=== PATIENT | female | born 1980 | race Hispanic/Latino ===

== ENCOUNTER 2024-05-10 14:43 | Outpatient (CLI) | payer BC, SELFPAY ==
--- NOTE | ~2024-05-10 | MM_ITS ---
EXAMINATION: MM screening arcadio BI w giselle HISTORY: Screening TECHNIQUE: Craniocaudal and mediolateral oblique 3-D tomosynthesis images were obtained and synthetic 2-D images were generated. CAD analysis was submitted and interpreted. COMPARISON: No prior mammogram is available for comparison at this institution. BREAST PARENCHYMAL COMPOSITION: Dense: The breasts are heterogeneously dense, which may obscure small masses FINDINGS: There is no evidence of suspicious mass, calcification, or architectural distortion to sugg est malignancy in either breast. There has been no suspicious interval change. IMPRESSION: 1. No mammographic evidence of malignancy. 2. Recommend routine screening mammography in one year. BI-RADS Category 1: Negative Reviewed, dictated and finalized at location B. FIXER
--- OUTSIDE RECORDS SUMMARY | 2024-05-13 22:41 | XMS_ITS | Encounter Summary ---
Author Organization [facility] Address Critical access hospital[facility] [place], [place] [address] [place] [address] Care Team Providers Care Segmental Wall Installer Name Role Phone Shabbir Natarajan MD Primary Care Provider [phone] Encounter Details Date Type Department Care Team (Late st Contact Info) Description 01/07/2024 Accelereacht Message Enc [address] [place] [address] Shabbir Natarajan MD [address] [place] [address] Refil Social History Tobacco Use Types Packs/Day Years Used Date Smoking Tobacco: Never Smokeless Tobacco: Never Comments:Counseled by Dr Stephany liao. Alcohol Use Standard Drinks/Week Comments Never 0 (1 standard drink = 0.6 oz pur e alcohol) PHQ-2 Answer Date Recorded Patient Health Questionnaire-2 Score 1 10/17/2023 Comments No Sex and Gender Information Value Date Recorded Sex Assigned at Not on file Legal Sex Female 11:20 AM CDT Gender Identity Not on file Sexual Orientation Not on file documented as of this encounter Plan of Treatment Upcoming Encounters Date Type Department Care Team (Late st Contact Info) Description 10/22/2024 7:20 AM CDT [facility] [address] [place], [place] [id number] Shabbir Natarajan MD [address] [place] [address] 157 [place] [address] documented as of this encounter Visit Diagnoses Not on filedocumented in this encounter Care Teams Segmental Wall Installer Relationship Specialty Start Date End Date Shabbir Natarajan MD [address] [facility] 157 [place] [address] PCP - General INTERNAL MEDICINE 09/05/22 documented as of this encounter
--- OUTSIDE RECORDS SUMMARY | 2024-05-13 22:41 | XMS_ITS | Encounter Summary ---
Author Organization [facility] Address [facility]6 [facility] [place] [address] [place] [address] Care Team Providers Care Cupola Charger Name Role Phone Shabbir Natarajan MD Primary Care Provider [phone] Encounter Details Date Type Department Care Team (Late Contact Info) Description 06/23/2023 Get Int Message [facility] [address] [place] [address] Shabbir Natarajan MD [address] [place] [address] Question Social History Tobacco Use Types Packs/Day Years Used Date Smoking Tobacco: Never Smokeless Tobacco: Never Comments:Counseled by Dr Stephany liao. Alcohol Use Standard Drinks/Week Comments Never 0 (1 standard drink = 0.6 oz pur e alcohol) PHQ-2 Answer Date Recorded Patient Health Questionnaire-2 Score 2 10/11/2022 Comments No Sex and Gender Information Value Date Recorded Sex Assigned at Not on file Legal Sex Female 11:20 AM CDT Gender Identity Not on file Sexual Orientation Not on file documented as of this encounter Plan of Treatment Upcoming Encounters Date Type Department Care Team (Late Contact Info) Description 10/22/2024 7:20 AM CDT Office Visit [facility] - [address] [place], [place] [address] Shabbir Natarajan MD [address] [place] [address] [place] [address] documented as of this encounter Visit Diagnoses Not on filedocumented in this encounter Care Teams Cupola Charger Relationship Specialty Start Date End Date Shabbir Natarajan MD 118[address] [facility] 157 [place] [address] PCP - General INTERNAL MEDICINE 09/05/22 documented as of this encounter
--- OUTSIDE RECORDS SUMMARY | 2024-05-13 22:41 | XMS_ITS | Encounter Summary ---
Author Organization [facility] Address Critical access hospital6 [facility] [place] [address] [place] [address] Care Team Providers Care External Grinder Tool Name Role Phone Shabbir Natarajan MD Primary Care Provider [phone] Encounter Details Date Type Department Care Team (Late Contact Info) Description 03/01/2024 Hard Candy Casest Message Enc [facility] [place] - [address] [place] [address] Shabbir Natarajan MD [address] [place] [address] Doubt Social History Tobacco Use Types Packs/Day Years [...] Description 10/22/2024 7:20 AM CDT [facility] [address] [place], [place] [id number] Shabbir Natarajan MD [address] [place] [address] [place] [address] documented as of this encounter Visit Diagnoses Not on filedocumented in this encounter Care Teams External Grinder Tool Relationship Specialty Start Date End Date Shabbir Natarajan MD 1188 [facility] 157 [place] [address] PCP - General INTERNAL MEDICINE 09/05/22 documented as of this encounter
--- OUTSIDE RECORDS SUMMARY | 2024-05-13 22:41 | XMS_ITS | Encounter Summary ---
Author Organization [facility] - [facility] Address [facility]6 [facility]. [place], [place] [address] [place] [address] Care Team Providers Care Sales Effectiveness Manager Name Role Phone Shabbir Natarajan MD Primary Care Provider [phone] Encounter Details Date Type Department Care Team (Latest Contact Info) Description 11/25/2022 Travel Social History Tobacco Use Types Packs/Day Years [...] Description 10/22/2024 7:20 AM CDT Office Visit [facility] Mult[facility]ty Care - [place] [address] [address] [place] [address] Shabbir Natarajan MD [address] [place] [phone] documented as of this encounter Visit Diagnoses Not on filedocumented in this encounter Care Teams Sales Effectiveness Manager Relationship Specialty Start Date End Date Shabbir Natarajan MD [address] [place] [address] PCP - General INTERNAL MEDICINE 09/05/22 documented as of this encounter
--- OUTSIDE RECORDS SUMMARY | 2024-05-13 22:41 | XMS_ITS | Encounter Summary ---
Author Organization [facility] Address [facility]6 [facility] [place] [address] [place] [address] Care Team Providers Care Clinical Investigator Name Role Phone Shabbir Natarajan MD Primary Care Provider [phone] Encounter Details Date Type Department Care Team (Late Contact Info) Description 10/17/2023 ABL Farmshart Message Enc [facility] - [address] [place] [address] Shabbir Natarajan MD [address] [place] [address] Pictures Social History Tobacco Use Types Packs/Day Years [...] Description 10/22/2024 7:20 AM CDT [facility] [address] [place], [place] [address] Shabbir Natarajan MD [address] [place] [address] [place] [address] documented as of this encounter Visit Diagnoses Not on filedocumented in this encounter Care Teams Clinical Investigator Relationship Specialty Start Date End Date Shabbir Natarajan MD 1188 [facility] 157 [place] [address] PCP - General INTERNAL MEDICINE 09/05/22 documented as of this encounter
--- OUTSIDE RECORDS SUMMARY | 2024-05-13 22:41 | XMS_ITS | Encounter Summary ---
Author Organization [facility] Address [facility]6 [facility] [place] [address] [place] [address] Care Team Providers Care Seaport Planning Manager Name Role Phone Shabbir Natarajan MD Primary Care Provider [phone] Encounter Details Date Type Department Care Team (Late st Contact Info) Description 10/13/2023 Fuzzhart Message Enc [address] [place] [address] Shabbir Natarajan MD [address] [place] [address] 157 [place] [address] Spider Bite? Social History Tobacco Use Types Packs/Day Years [...] Description 10/22/2024 7:20 AM CDT [facility] [address] [place] [address] Shabbir Natarajan MD 1188 [facility] 157 [place] [address] documented as of this encounter Visit Diagnoses Not on filedocumented in this encounter Care Teams Seaport Planning Manager Relationship Specialty Start Date End Date Shabbir Natarajan MD 1188 [facility] 157 [place] [address] PCP - General INTERNAL MEDICINE 09/05/22 documented as of this encounter
--- OUTSIDE RECORDS SUMMARY | 2024-05-13 22:41 | XMS_ITS | Encounter Summary ---
Author Organization [facility] Address [facility]. [place] [address] [place] [address] Care Team Providers Care Service Unit Operator Oil Well Name Role Phone Shabbir Natarajan MD Primary Care Provider [phone] Encounter Details Date Type Department Care Team (Latest Contact Info) Description 11/23/2022 Travel Social History Tobacco Use Types Packs/Day [...] Description 10/22/2024 7:20 AM CDT Office Visit [facility] Multispecialty Care - [place] [address] [address] [place] [address] Shabbir Natarajan MD [address] [place] [phone] documented as of this encounter Visit Diagnoses Not on filedocumented in this encounter Care Teams Service Unit Operator Oil Well Relationship Specialty Start Date End Date Shabbir Natarajan MD [address] [place] [address] PCP - General INTERNAL MEDICINE 09/05/22 documented as of this encounter
--- OUTSIDE RECORDS SUMMARY | 2024-05-13 22:41 | XMS_ITS | Encounter Summary ---
Author Organization [facility] Address [address] [place] [address]. [place], [place] [address] [place] [address] Care Team Providers Care Cloth Pattern Maker Name Role Phone Shabbir Natarajan MD Primary Care Provider [phone] Reason for Visit * Reason Comments Vaginal Problem Sore on the vagina Encounter Details Date Type Department Care Team (Late st Contact Info) Description 04/11/2024 9:00 AM SOUR BLEACHING PLEATER Office Visit [facility] Multispecialty Care - [place] [address] [place] [address] Chico Parada, MAINTENANCE TRAINER [address] [place], [place] [id number] Vaginal Problem (Sore on the vagina) Social History Tobacco Use Types Packs/Day Years Used Date Smoking Tobacco: Never Smokeless Tobacco: Never Tobacco Cessation:Counseling Given: Not Answered Comments:Counseled by Dr Natarajan. Alcohol Use Standard Drinks/Week Comments Never 0 (1 standard drink = 0.6 oz pur e alcohol) PHQ-2 Answer Date Recorded Patient Health Questionnaire-2 Score 1 10/17/2023 Comments No Sex and Gender Information Value Date Recorded Sex Assigned at Not on file Legal Sex Female 11:20 AM CDT Gender Identity Not on file Sexual Orientation Not on file documented as of this encounter Last Filed Vital Signs Vital Sign Reading Time Taken Comments Blood Pressure 104/71 04/11/2024 9:01 AM SOUR BLEACHING PLEATER Pulse 63 04/11/2024 9:01 AM SOUR BLEACHING PLEATER Temperature 36.4 ??C (97.6 ??F) 04/11/2024 9:01 AM CS T Respiratory Rate 18 04/11/2024 9:01 AM SOUR BLEACHING PLEATER Oxygen Saturation 100% 04/11/2024 9:01 AM SOUR BLEACHING PLEATER Inhaled Oxygen Concentration - - Weight 67.8 kg (149 lb 6.4 oz) 04/11/2024 9:01 A M SOUR BLEACHING PLEATER Height 165.1 cm (5' 5 ) 04/11/2024 9:01 AM SOUR BLEACHING PLEATER Body Mass Index 24.86 04/11/2024 9:01 AM SOUR BLEACHING PLEATER documented in this encounter Patient Instructions * Patient Instructions* Chico Parada NP - 04/11/2024 9:00 AM SOUR BLEACHING PLEATER Warm water soaks, warm compress for discomfort May take Ibuprofen as needed if pain occurs Monitor for a few days Start antibiotic if it does not resolve BLEACHING PLEATER documented in this encounter Progress Notes * Chico Parada NP - 04/11/2024 9:00 AM CSTSummary: labial cyst Images from the original note were not included. Internal Medicine Outpatient Progress Note CC: Vaginal Problem (Sore on the vagina) HPI: Nicci Blancas is a 43-year-old female who presents to discuss vaginal lesion. States she recently traveled to [place] and was swimming, in the sand has also been sexually active with her and noticed a sore. Slightly painful to the touch wanted to get it examined before she starts her menstrual period in one week. No drainage, minimal discomfort. Patient has history of below: Patient Active Problem List Diagnosis Rash and nonspecific skin eruption Review of Systems Constitutional: Negative. HENT: Negative. Eyes: Negative. Respiratory: Negative. Cardiovascular: Negative. Genitourinary: Vaginal sore Neurological: Negative. Psychiatric/Behavioral: Negative. Past Medical History: Past Medical History: Diagnosis Date 2009 Family History: Family History Problem Relation Name Age of Onset Hypertension Mother Ilde No Known Problems Father Cancer Paternal Grandmother Laucy Hypertension Maternal Grandfather Malvin Cancer Maternal Uncle Malvin Hypertension Sister Silvia Social History: Social History Tobacco Use Smoking status: Never Smokeless tobacco: Never Tobacco comments: Counseled by Dr Natarajan. Vaping Use Vaping status: Never Used Substance Use Topics Alcohol use: Never Drug use: Never Medications: Outpatient Medications Marked as Taking for the 04/11/24 encounter (Office Visit) with Chioc Parada NP Medication Sig Dispense Refill azelastine (ASTELIN) 0.1 % nasal spray 1 spray by Nasal route 2 (two) times daily. Use in each nostril as directed 30 mL 5 biotin 300 MCG Tab Take 1 tablet (300 mcg total) by mouth daily. 90 tablet 1 doxycycline hyclate (VIBRAMYCIN) 100 MG capsule Take 1 capsule (100 mg total) by mouth 2 (two) times daily for 10 days. Take with food 20 capsule 0 fluticasone propionate (FLONASE) 50 MCG/ACT nasal spray 2 sprays by Nasal route daily. 16 g 5 melatonin 1 MG tablet Take 1 tablet (1 mg total) by mouth nightly as needed (10 mg). ( VITAMINS) 28-0.8 MG tablet Take 1 tablet by mouth daily. 90 tablet 0 topiramate (TOPAMAX) 50 MG Tab Take 1 tablet (50 mg total) by mouth daily. 90 tablet 1 triamcinolone (KENALOG) 0.1 % cream Apply topically 2 (two) times daily. 45 g 0 Allergies: Review of patient's allergies indicates: Patient has no known allergies. ? Objective: Filed Vitals: 04/11/24 0901 BP: 104/71 Pulse: 63 Resp: 18 Temp: 97.6 ??F (36.4 ??C) TempSrc: Core SpO2: 100% Weight: 67.8 kg (149 lb 6.4 oz) Height: 1.651 m (5' 5 ) Body mass index is 24.86 kg/m??. Physical Exam Exam conducted with a lending advisor present. Constitutional: General: She is not in acute distress. Appearance: Normal appearance. She is not ill-appearing. Eyes: Conjunctiva/sclera: Conjunctivae normal. Pulmonary: Effort: Pulmonary effort is normal. Genitourinary: Pubic Area: No rash. Labia: Right: Lesion present. Comments: Small pink cyst to right labia minora, no drainage, no surrounding redness Neurological: Mental Status: She is alert. Psychiatric: Mood and Affect: Mood normal. Behavior: Behavior normal. Judgment: Judgment normal. Assessment and Plan: 1. Labial cyst No signs of infection, no drainage or surrounding redness Recommend warm bath, warm compress for swelling and monitoring for a few days If the cyst does not improve may start antibiotics - doxycycline hyclate (VIBRAMYCIN) 100 MG capsule; Take 1 capsule (100 mg total) by mouth 2 (two) times daily for 10 days. Take with food Dispense: 20 capsule; Refill: 0 Tobacco: Counseling given: Not Answered Tobacco comments: Counseled by Dr Natarajan. I personally spent a total of 15 minutes on the day of the encounter. This includes nevi-wf-uwes and fmx-krbn-qv-face time I provided on the day of the encounter & excludes time spent performing separately reportable services. Side effects and less common but more severe adverse effects of recommended medical therapies were explained to the patient. Patient reminded to use MyChart or telephone follow up prn if symptoms change, worsen, or persist, or if side effect of treatment is experienced. RTC as scheduled CHICO PARADA NP 04/11/2024 [facility]. BLEACHING PLEATER documented in this encounter Plan of Treatment Upcoming Encounters Date Type Department Care Team (Late st Contact Info) Description 10/22/2024 7:20 AM CDT Office Visit [facility]pecialty Care - [place] [address] [address] [place] [address] Shabbir Natarajan MD [address] [place] [address] documented as of this encounter Visit Diagnoses Diagnosis Labial cyst- Primary Other specified noninflammatory disorder of vulva and perineum documented in this encounter Care Teams Cloth Pattern Maker Relationship Specialty Start Date End Date Shabbir Natarajan MD [address] [place] [address] PCP - General INTERNAL MEDICINE 09/05/22 documented as of this encounter
--- OUTSIDE RECORDS SUMMARY | 2024-05-13 22:41 | XMS_ITS | Encounter Summary ---
Author Organization [facility] Address [facility]6 [facility] [place], [place] [address] [place] [address] Care Team Providers Care Night Club Manager Name Role Phone Shabbir Natarajan MD Primary Care Provider [phone] Encounter Details Date Type Department Care Team (Latest Contact Info) Description 02/21/2024 Travel Social History Tobacco Use Types Packs/Day [...] Description 10/22/2024 7:20 AM CDT Office Visit [facility] Multispecialty Care - [place] [address] [address] [place] [address] Shabbir Natarajan MD [address] [place] [phone] documented as of this encounter Visit Diagnoses Not on filedocumented in this encounter Care Teams Night Club Manager Relationship Specialty Start Date End Date Shabbir Natarajan MD [address] [place] [address] PCP - General INTERNAL MEDICINE 09/05/22 documented as of this encounter
--- OUTSIDE RECORDS SUMMARY | 2024-05-13 22:41 | XMS_ITS | Encounter Summary ---
Author Organization [facility] Address [facility]6 [facility]. [place], [place] [address] [place] [address] Care Team Providers Care Knuckler Name Role Phone Shabbir Natarajan MD Primary Care Provider [phone] Encounter Details Date Type Department Care Team (Latest Contact Info) Description 10/17/2023 Travel Social History Tobacco Use Types Packs/Day [...] Description 10/22/2024 7:20 AM CDT Office Visit [facility] Multispecialty Care - [place] [address] [address] [place] [address] Shabbir Natarajan MD [address] [place] [address] [phone] documented as of this encounter Visit Diagnoses Not on filedocumented in this encounter Care Teams Knuckler Relationship Specialty Start Date End Date Shabbir Natarajan MD [address] [place] [address] PCP - General INTERNAL MEDICINE 09/05/22 documented as of this encounter
--- OUTSIDE RECORDS SUMMARY | 2024-05-13 22:41 | XMS_ITS | Encounter Summary ---
Author Organization [facility] Address [facility]6 [place] [address] [place] [address] Care Team Providers Care Data Management Specialist Name Role Phone Shabbir Natarajan MD Primary Care Provider [phone] Encounter Details Date Type Department Care Team (Latest Contact Info) Description 02/21/2024 [employer] Message [facility] [address] [place], [place] [address] Shabbir Natarajan MD [address] [place] [address] Dentist appointment Social History Tobacco Use Types Packs/Day Years [...] Description 10/22/2024 7:20 AM CDT [facility] [address] [place] [address] Shabbir Natarajan MD [address] [place] [address] 157 [place] [address] documented as of this encounter Visit Diagnoses Not on filedocumented in this encounter Care Teams Data Management Specialist Relationship Specialty Start Date End Date Shabbir Natarajan MD [address] [facility] 157 [place] [address] PCP - General INTERNAL MEDICINE 09/05/22 documented as of this encounter
--- OUTSIDE RECORDS SUMMARY | 2024-05-13 22:41 | XMS_ITS | Encounter Summary ---
Author Organization [facility] Address [facility]. [place], [place] [id number] [place] [id number] Care Team Providers Care Timekeeper Supervisor Name Role Phone Shabbir Natarajan MD Primary Care Provider [phone] Reason for Referral * Imaging (Routine) - Authorized Specialty Diagnoses / Procedures Referred By Chilo jimenez Referred To Contact RADIOLOGY Diagnoses Encounter for screening mammogram for malignant neoplasm of breast Procedures MG SCREENING W ROYER KIMBERLY DIGI Shabbir Natarajan MD [address] [address] Phone: tel: fax: Referral ID Status Reason Start Date Expiration Date V isits Requested Visits Authorized [id number] Authorized 10/17/2023 12/16/2024 1 1 Reason for Visit * Reason Comments Physical Weight Problem Hair/Scalp Problem Encounter Details Date Type Department Care Team (Latest Contact Info) Description 10/17/2023 8:00 AM CDT Office Visit [facility] - [address] [address] [address] [place], [place] [id number] Shabbir Natarajan MD [address] [id number] Physical; Weight Problem; Hair/Scalp Problem Social History Tobacco Use Types Packs/Day Years Used Date Smoking Tobacco: Never Smokeless Tobacco: Never Tobacco Cessation:Counseling Given: Yes Comments:Counseled by Dr Natarajan. Alcohol Use Standard [...] Sign Reading Time Taken Comments Blood Pressure 120/76 10/17/2023 7:48 AM CDT Pulse 65 10/17/2023 7:48 AM CDT Temperature 36.2 ??C (97.2 ??F) 10/17/2023 7:48 AM CD T Respiratory Rate 18 10/17/2023 7:48 AM CDT Oxygen Saturation 100% 10/17/2023 7:48 AM CDT Inhaled Oxygen Concentration - - Weight 81.3 kg (179 lb 3.2 oz) 10/17/2023 7:48 A M CDT Height 165.1 cm (5' 5 ) 10/17/2023 7:48 AM CDT Body Mass Index 29.82 10/17/2023 7:48 AM CDT documented in this encounter Patient Instructions * Patient Instructions* Shabbir Natarajan MD - 10/17/2023 8:00 AM CDT Follow up in one month for your weight medication. * Attachments The following attachments cannot be sent through Care Everywhere. * Yearly Physical for Adults (Pakistani) documented in this encounter Progress Notes * Shabbir Natarajan MD - 10/17/2023 8:00 AM CDTSummary: Annual physical notes Images from the original note were not included. ANNUAL PHYSICAL NOTES Encounter Date: 10/17/2023 Chief Complaint: 43-year-old female presents for Physical, Weight Problem, and Hair/Scalp Problem The patient is being seen for a health maintenance evaluation and for following up for chronic medical issues. She is mainly concerned about her weight. She is exercising regularly and is concerned her weight has remained stagnant. She did have blood work done recently but is unsure if her thyroid numbers were checked. She is interested in losing weight at this time. She is exercising very regularly and hasgood exercise tolerance. She is also watching portions of her diet. She is also concerned about recent hair loss. She is currently taking biotin 1000 units daily and She is taking melatonin 10 mg nightly and has been for years and helping with sleep. She is also taking another supplement valerian to help with sleep and wanted me to be aware of it. She tells me she recently had blood work done through her 's job and will send me the results. She is unsure of the exact labs that were performed reports most of it was normal. General Health: good Dental Health: Sees dentist regularly Vision Health: No vision correction Hearing Health: No hearing problems Immunizations Needed: COVID Weight: Overweight Body mass index is 29.82 kg/m??. Physical Activity: Excersises regularly and Acitve lifestyle Cervical Cancer Screening: up to date Breast Cancer Screening: Due Colorectal Cancer Screening: None Metabolic Screening: Patient needs to be screened today. HCV Screening: done PHQ-9 Screening Score: PHQ-9: 10/11/2022 2:16 PM 10/17/2023 8:33 AM PHQ2/PHQ 9 DEPRESSION SCREEN QUESTIONAIRE Little interest or pleasure in doing things Several days Several days Feeling down, depressed, or hopeless Several days Not at all Patient Health Questionnaire-2 Score 2 1 How difficult have these problems made it for you to do your work, take care of things at home, or get along with other people? Not difficult at all Not difficult at all JASEN-7 (Generalized Anxiety Disorder) Screening 10/11/2022 1:20 PM 10/17/2023 8:33 AM JASEN-7 Feeling nervous, anxious, or on edge 1 Not being able to stop or control worrying 0 Worrying too much about different things 1 Trouble relaxing 1 Being so restless that it is hard to sit still 0 Becoming easily annoyed or irritable 0 Feeling afraid as if something awful might happen 1 JASEN-7 Total Score 4 How difficult have these problems made it for you to do your work, take care of things at home, or get along with other people? Not difficult at all Feeling nervous, anxious and on edge 1 - several days Not being able to stop or control worrying 0 - not at all Worrying too much about different things 1 - several days Trouble Relaxing 0 - not at all Being so restless that it's hard to sit still 0 - not at all Becoming easily annoyed or irritable 0 - not at all Feeling afraid as if something awful might happen 0 - not at all Total Score 2 If you checked off any problems, how difficult have those problems made it for you to do your work take care of things at home or get along with other people? not difficult at all Smoking Status: History Smoking Status Never Smokeless Tobacco Never Patient does not meet criteria for Low Dose CT screening Sleep Apnea Risk Factors: None Review of Systems Constitutional: Negative for activity change, appetite change, chills, fatigue, fever and unexpected weight change. HENT: Negative for congestion, hearing loss, mouth sores, postnasal drip, rhinorrhea, sinus pressure, sinus pain, sore throat, tinnitus and voice change. Eyes: Negative for pain, discharge, redness, itching and visual disturbance. Respiratory: Negative for cough, chest tightness, shortness of breath and wheezing. Cardiovascular: Negative for chest pain, palpitations and leg swelling. Gastrointestinal: Negative for abdominal distention, abdominal pain, blood in stool, constipation, diarrhea, nausea and vomiting. Genitourinary: Negative for decreased urine volume, difficulty urinating, dysuria, flank pain, frequency, hematuria and urgency. Musculoskeletal: Negative for arthralgias, back pain, gait problem, joint swelling and myalgias. Skin: Negative for pallor, rash and wound. Neurological: Negative for dizziness, tremors, syncope, weakness, light- headedness and headaches. Hematological: Negative for adenopathy. Does not bruise/bleed easily. Psychiatric/Behavioral: Negative for agitation, behavioral problems, confusion, decreased concentration, dysphoric mood, hallucinations, self-injury, sleep disturbance and suicidal ideas. The patientis not nervous/anxious and is not hyperactive. Patient Active Problem List Diagnosis Rash and nonspecific skin eruption Past Medical History: Diagnosis Date Anxiety 2009 Past Surgical History: Procedure Laterality Date SECTION Family History Problem Relation Name Age of Onset Hypertension Mother Ilde No Known Problems Father Cancer Paternal Grandmother Laucy Hypertension Maternal Grandfather Malvin Cancer Maternal Uncle Malvin Hypertension Sister Silvia Social History Socioeconomic History Marital status: Spouse name: Not on file Number of children: Not on file Years of education: Not on file Highest education level: Not on file Occupational History Not on file Tobacco Use Smoking status: Never Smokeless tobacco: Never Tobacco comments: Counseled by Dr Natarajan. Vaping Use Vaping status: Never Used Substance and Sexual Activity Alcohol use: Never Drug use: Never Sexual activity: Yes Partners: Male control/protection: Condom Other Topics Concern Not on file Social History Narrative Not on file Social Determinants of Health Financial Resource Strain: Not on file Food Insecurity: Not on file Transportation Needs: Not on file Physical Activity: Not on file Stress: Not on file Social Connections: Not on file Intimate Partner Violence: Not on file Housing Stability: Not on file Immunization History Administered Date(s) Administered [employer] ([employer]) COVID-19 AD26 VACCINE 0.5 ML IM SUSP 09/26/2020 PFIZER COVID-19 BIVALENT (12+) mRNA, LNP-S, PF, 30 MCG/0.3 ML DOSE 04/10/2021, 02/26/2022 Tdap (Generic) 09/08/2021 Current Outpatient Medications Medication Sig Dispense Refill azelastine (ASTELIN) 0.1 % nasal spray 1 spray by Nasal route 2 (two) times daily. Use in each nostril as directed 30 mL 5 biotin 300 MCG Tab Take 1 tablet (300 mcg total) by mouth daily. fluticasone propionate (FLONASE) 50 MCG/ACT nasal spray 2 sprays by Nasal route daily. 16 g 5 melatonin 1 MG tablet Take 1 tablet (1 mg total) by mouth nightly as needed. phentermine (ADIPEX-P) 37.5 MG tablet Take 1 tablet (37.5 mg total) by mouth every morning before breakfast. 30 tablet 0 ( VITAMINS) 28-0.8 MG tablet Take 1 tablet by mouth daily. 90 tablet 3 No current facility-administered medications for this visit. Current Outpatient Medications on File Prior to Visit Medication Sig biotin 300 MCG Tab Take 1 tablet (300 mcg total) by mouth daily. melatonin 1 MG tablet Take 1 tablet (1 mg total) by mouth nightly as needed. No current facility-administered medications on file prior to visit. Review of patient's allergies indicates: No Known Allergies Objective: Filed Vitals: 10/17/23 0748 BP: 120/76 Pulse: 65 Resp: 18 Temp: 97.2 ??F (36.2 ??C) TempSrc: Temporal SpO2: 100% Weight: 81.3 kg (179 lb 3.2 oz) Height: 1.651 m (5' 5 ) Physical Exam Vitals and nursing note reviewed. Constitutional: General: She is not in acute distress. Appearance: She is not ill-appearing, toxic-appearing or diaphoretic. HENT: Head: Normocephalic and atraumatic. Right Ear: Tympanic membrane, ear canal and external ear normal. There is no impacted cerumen. Left Ear: Tympanic membrane, ear canal and external ear normal. There is no impacted cerumen. Nose: Nose normal. No congestion. Mouth/Throat: Mouth: Mucous membranes are moist. Pharynx: Oropharynx is clear. No oropharyngeal exudate. Eyes: General: No scleral icterus. Right eye: No discharge. Left eye: No discharge. Extraocular Movements: Extraocular movements intact. Conjunctiva/sclera: Conjunctivae normal. Pupils: Pupils are equal, round, and reactive to light. Neck: Thyroid: No thyromegaly. Vascular: No carotid bruit or JVD. Trachea: No tracheal deviation. Cardiovascular: Rate and Rhythm: Normal rate and regular rhythm. Pulses: Normal pulses. Heart sounds: Normal heart sounds. No murmur heard. No friction rub. No gallop. Pulmonary: Effort: Pulmonary effort is normal. No respiratory distress. Breath sounds: Normal breath sounds. No stridor. No wheezing or rales. Chest: Chest wall: No tenderness. Abdominal: General: Bowel sounds are normal. There is no distension. Palpations: Abdomen is soft. There is no mass. Tenderness: There is no abdominal tenderness. There is no right CVA tenderness, left CVA tenderness, guarding or rebound. Hernia: No hernia is present. Musculoskeletal: General: No swelling, tenderness, deformity or signs of injury. Normal range of motion. Cervical back: Normal range of motion and neck supple. No rigidity or tenderness. Right lower leg: No edema. Left lower leg: No edema. Lymphadenopathy: Cervical: No cervical adenopathy. Skin: General: Skin is warm. Coloration: Skin is not jaundiced or pale. Findings: No bruising, erythema, lesion or rash. Neurological: Mental Status: She is alert and oriented to person, place, and time. Cranial Nerves: No cranial nerve deficit. Sensory: No sensory deficit. Motor: No weakness or abnormal muscle tone. Coordination: Coordination normal. Gait: Gait is intact. Gait normal. Deep Tendon Reflexes: Reflexes are normal and symmetric. Reflexes normal. Psychiatric: Mood and Affect: Mood and affect normal. Thought Content: Thought content normal. Cognition and Memory: Memory normal. Judgment: Judgment normal. Assessment & Plan: Nicci was seen today for physical, weight problem and hair/scalp problem. Diagnoses and all orders for this visit: Annual physical exam -Discussed breast cancer screening and screen per patient preference and guidelines. Self-breast exams are a level D recommendation by the USPSTF. Follow up with primary care provider or gynecologistif any abnormalities are noted. Mammograms should continue annually. Reviewed with the patient BMI,blood pressure, diet, exercise, and encouraged healthy lifestyle choices. I recommended weight-bearing exercise to decrease risks of osteoporosis. Screened for substance use, risk factors for STIs, diet and exercise habits, and symptoms of depression. Colon screening starting at 45. Recommended preventive immunizations according to age. -She will send me recent labs done outside. If labs not completely done, will consider checking CBC, CMP, TSH, A1c and lipid panel General medical exam -Patient past medical, surgical, family history and social history updated. Allergies, immunizations and medications updated. Also did discuss healthy lifestyle including exercising, dietary changes and safe sexual practices as well as safe habits common to patient age group including wearing seat belt when transporting in a vehicle and limiting alcohol and avoiding smoking/second hand smoking. Patient will set up MyChart. Patient will fax over any remaining outside records that would be relevant to care provided. -I did discuss with patient the appropriate [place] Preventive Services Task Force guidelinesfor screening testing as patient had multiple questions regarding timeline for all screening testings and this was discussed in detail with patient and all questions answered to patient's satisfaction. Encounter for screening mammogram for malignant neoplasm of breast - MG SCREENING W ROYER URIBE; Future - MG SCREENING W ROYER URIBE Overweight (BMI 25.0-29.9) - At today's visit, one of her major concerns is that of difficulty with weight loss. She reports noticing an stagnation with weight loss since moving to the [facility] from [place]. She is originally from [place]. Currently exercising very regularly and maintaining a healthy lifestyle but still having difficulty with weight loss. Discussed options of treatment with patient. She will start phentermine and follow-up every 4 weeks for the next few months. - Lifestyle modification including dietary changes to include less saturated fats, lean meat, more vegetables and exercise at least 30 min every day. - phentermine (ADIPEX-P) 37.5 MG tablet; Take 1 tablet (37.5 mg total) by mouth every morning before breakfast. -This is her first refill. Loss of hair - She is currently on biotin but cannot recall the exact dose. She will confirm the exact dose whenshe gets home. Encourage patient to take about 5000 units versus 10,000 units as appropriate. Closeblood during subsequent visits. -Add ( VITAMINS) 28-0.8 MG tablet; Take 1 tablet by mouth daily. Environmental and seasonal allergies - Stable symptoms. Needing refills on medications. - azelastine (ASTELIN) 0.1 % nasal spray; 1 spray by Nasal route 2 (two) times daily. Use in each nostril as directed - fluticasone propionate (FLONASE) 50 MCG/ACT nasal spray; 2 sprays by Nasal route daily. I personally spent a total of 50 minutes on the day of the encounter. This includes [id number] and [id number] time I provided on the day of the encounter & excludes time spent performing separately reportable services. SAVANA: This dictation was at least in part performed using [employer] and there may be some inherent flaws in this extension agent due to the nature of this program. MD Shabbir SANCHEZ MD Internal Medicine [facility] Medical [facility], [facility]. documented in this encounter Plan of Treatment Upcoming Encounters Date Type Department Care Team (Late st Contact Info) Description 10/22/2024 7:20 AM CDT Office Visit [facility] Medical [facility] - [address] [place] [address] [address] [place] [address] Shabbir Natarajan MD [address] [place] [address] [address] [place] [address] Scheduled Orders Name Type Priority Associated Diagnoses Orde r Schedule MG SCREENING W ROYER KIMBERLY DIGI MAMMO Routine Encounter for screening mammogram for malignant neoplasm of breast Expected: 10/17/2023, Expires: 12/13/2024 documented as of this encounter Visit Diagnoses Diagnosis Annual physical exam- Primary Routine general medical examination at a health care facility General medical exam Unspecified general medical examination Encounter for screening mammogram for malignant neoplasm of breast Other screening mammogram Overweight (BMI 25.0-29.9) Overweight Loss of hair Alopecia, unspecified Environmental and seasonal allergies documented in this encounter Care Teams Timekeeper Supervisor Relationship Specialty Start Date End Date Shabbir Natarajan MD [address] [address] PCP - General INTERNAL MEDICINE 09/05/22 documented as of this encounter
--- OUTSIDE RECORDS SUMMARY | 2024-05-13 22:41 | XMS_ITS | Encounter Summary ---
Author Organization [facility] - [facility] Address [facility]ly [facility]. [place], [place] [address] [place] [address] Care Team Providers Care Balance Clerk Name Role Phone Shabbir Natarajan MD Primary Care Provider [phone] Reason for Visit * Reason Comments Follow Up Weight Problem Encounter Details Date Type Department Care Team (Latest Contact Info) Description 03/22/2024 7:20 AM CDT Office Visit [facility] Medical Group Multispecialty Care - [place] [address] [address] [place], [place] [id number] [place] [address] [place] [address] [address] [place], [place] [id number] Follow Up; Weight Problem Social History Tobacco Use Types Packs/Day [...] Sign Reading Time Taken Comments Blood Pressure 106/61 03/22/2024 7:23 AM CDT Pulse 68 03/22/2024 7:23 AM CDT Temperature 36.4 ??C (97.6 ??F) 03/22/2024 7:23 AM CD T Respiratory Rate 18 03/22/2024 7:23 AM CDT Oxygen Saturation 100% 03/22/2024 7:23 AM CDT Inhaled Oxygen Concentration - - Weight 68.4 kg (150 lb 12.8 oz) 03/22/2024 7:23 AM CDT Height 165.1 cm (5' 5 ) 03/22/2024 7:23 AM CDT Body Mass Index 25.09 03/22/2024 7:23 AM CDT documented in this encounter Patient Instructions * Patient Instructions* Shabbir Natarajan MD - 03/22/2024 7:20 AM CDT Follow up in October 16, 2024 for your physical - come fasting. * Attachments The following attachments cannot be sent through Care Everywhere. * Weight Loss Tips (Icelandic) documented in this encounter Progress Notes * Shabbir Natarajan MD - 03/22/2024 7:20 AM CDTSummary: Follow up notes Images from the original note were not included. Internal Medicine Outpatient Progress Note CC: Follow Up and Weight Problem HPI: Nicci Blancas is a 43-year-old female who presents for follow up for weight medication. On topiramate 25 mg daily now. Completed course of phentermine recently. Currently patient is on topiramate and tolerating medication well with no adverse side effects. The weight is down by about 5 pounds since her last visit. She is on the last tablet of her phentermine. Adjusting her dose at today's visit. She is active at baseline. No side effects on topiramate. Problem List Patient Active Problem List Diagnosis Rash and nonspecific skin eruption Past Medical History: Diagnosis Date Anxiety 2009 Past Surgical History: Procedure Laterality Date SECTION Family History Problem Relation Name Age of Onset Hypertension Mother Ilde No Known Problems Father Cancer Paternal Grandmother Laucy Hypertension Maternal Grandfather Malvin Cancer Maternal Uncle Malvin Hypertension Sister Silvia Social History Tobacco Use Smoking status: Never Smokeless tobacco: Never Tobacco comments: Counseled by Dr Natarajan. Vaping Use Vaping status: Never Used Substance Use Topics Alcohol use: Never Drug use: Never Medications: Outpatient Medications Marked as Taking for the 03/22/24 encounter (Office Visit) with Shabbir Natarajan MD Medication Sig Dispense Refill biotin 300 MCG Tab Take 1 tablet (300 mcg total) by mouth daily. 90 tablet 1 melatonin 1 MG tablet Take 1 tablet (1 mg total) by mouth nightly as needed (10 mg). phentermine (ADIPEX-P) 37.5 MG tablet Take 1 [...] 0 Allergies: Review of patient's allergies indicates: No Known Allergies Review of Systems Constitutional: Positive for weight loss (Intentional). Negative for chills, diaphoresis, fever andmalaise/fatigue. HENT: Negative. Eyes: Negative. Respiratory: Negative. Cardiovascular: Negative for chest pain, palpitations, orthopnea, claudication, leg swelling and PND. Gastrointestinal: Negative. Genitourinary: Negative. Musculoskeletal: Negative. Neurological: Negative. Psychiatric/Behavioral: Negative. Objective: Filed Vitals: 03/22/24 0723 BP: 106/61 Pulse: 68 Resp: 18 Temp: 97.6 ??F (36.4 ??C) TempSrc: Temporal SpO2: 100% Weight: 68.4 kg (150 lb 12.8 oz) Height: 1.651 m (5' 5 ) Body mass index is 25.09 kg/m??. General alert, cooperative, no distress HEENT EOM's intact. Oral mucosa normal. Nasal septum is midline. Neck Supple, symmetrical, trachea midline, no adenopathy, no thyromegaly, no JVD. Lungs No acute respiratory distress, no accessory muscle use, symmetric motion of the chest wall, lungs are clear to auscultation bilaterally, no wheezes or rales. Heart Regular rate and regular rhythm. S1, S2 normal. No murmurs. No rubs, clicks, or gallops. Abdomen Soft, non-tender, non-distended. Bowel sounds normal. No masses. No hepatomegaly appreciated. Extremities Extremities atraumatic, no cyanosis, 2+ pedal pulses, no edema Skin Skin color, texture, turgor normal. No rashes or lesions appreciated. Neurologic No focal deficits, motor strength is grossly normal and symmetric Psych Normal mood and affect MSK No synovitis, no bony tenderness, no joint effusions Lymph No cervical or supraclavicular adenopathy Assessment and Plan: Encounter Diagnose(s) ICD-10-CM SNOMED CT(R) 1. Overweight (BMI 25.0-29.9) E66.3 BODY MASS INDEX 25-29 - OVERWEIGHT topiramate (TOPAMAX) 50 MG Tab 1. Overweight (BMI 25.0-29.9) -Increase to topiramate (TOPAMAX) 50 MG Tab; Take 1 tablet (50 mg total) by mouth daily. Dispense: 90 tablet; Refill: 1 -Adjusting her dose at today's visit. On her last tablet of phentermine. This has completed her last series of phentermine refills. She is doing well on medication --Pt has elevated weight with BMI Body mass index is 25.09 kg/m??., and will need to work hard on reducing carbohydrates and total calories. -You may use the free smart phone apps such as [employer] to help track calories and try to reduce by 15% every 4 weeks. -Patient will work on reducing total portion sizes to try to reduce the size of their stomach. -Exercising about 30 minutes every day with cardio work outs. -Avoid regular soda, juices and alcohol. -Recommended limiting GPS foods (Grains, Potatoes, Sugars) as much as possible. Eating food that itis not highly processed and that they can recognize. Eating when they are hungry and not by a time schedule. -Lets aim to have them loose about 1 pound per week and 5 pounds per month. Counseling given: Yes Tobacco comments: Counseled by Dr Natarajan. I personally spent a total of 30 minutes on the day of the encounter. This includes qnmu-mm-bkow and zii-vjjm-ny-face time I provided on the day of the encounter & excludes time spent performing separately reportable services. Side effects and less common but more severe adverse effects of recommended medical therapies were explained to the patient. Follow up office visit in July 2024 for physical. Requested MyChart or telephone follow up prn if symptoms change, worsen, or persist, or if side effect of treatment is experienced. MOON: This dictation was at least in part performed using [employer] speak and there may be some inherent flaws in this process chemist due to the nature of this program. Shabbir Natarajan MD Internal Medicine [facility], [facility]. documented in this encounter Plan of Treatment Upcoming Encounters Date Type Department Care Team (Late st Contact Info) Description 10/22/2024 7:20 AM CDT Office Visit [facility] Medical Group Multispecialty Care - [place] [address] [address] [place] [address] Shabbir Natarajan MD [address] [place] [address] documented as of this encounter Visit Diagnoses Diagnosis Overweight (BMI 25.0-29.9) Overweight documented in this encounter Care Teams Balance Clerk Relationship Specialty Start Date End Date Shabbir Natarajan MD [address] [place] [address] PCP - General INTERNAL MEDICINE 09/05/22 documented as of this encounter
--- OUTSIDE RECORDS SUMMARY | 2024-05-13 22:41 | XMS_ITS | Encounter Summary ---
Author Organization [facility] Address [facility] [place] [address] [place] [address] Care Team Providers Care Survey Field Technician Name Role Phone Shabbir Natarajan MD Primary Care Provider [phone] Encounter Details Date Type Department Care Team (Late Contact Info) Description 05/02/2024 Orders Only [facility] Medical [facility] Multispecialty [facility] [place] - [address] [place] [address] Shabbir Natarajan MD [address] [place] [address] [id number] Social History Tobacco Use Types Packs/Day Years [...] Description 10/22/2024 7:20 AM CDT Office Visit [facility] Medical [facility] Multispecialty [facility] [place] - [address] [place] [address] Shabbir Natarajan MD [address] [place] [address] documented as of this encounter Visit Diagnoses Diagnosis Overweight (BMI 25.0-29.9) Overweight documented in this encounter Care Teams Survey Field Technician Relationship Specialty Start Date End Date Shabbir Natarajan MD [address] [facility] [address] [place] [address] PCP - General INTERNAL MEDICINE 09/05/22 documented as of this encounter
--- OUTSIDE RECORDS SUMMARY | 2024-05-13 22:41 | XMS_ITS | Encounter Summary ---
Author Organization [facility] - [facility] Address [address] [place] [address]. [place], [place] [address] [place] [address] Care Team Providers Care Time Study Engineer Name Role Phone Shabbir Natarajan MD Primary Care Provider [phone] Reason for Visit * Reason Comments Weight Problem Encounter Details Date Type Department Care Team (Late st Contact Info) Description 01/16/2024 7:00 AM CDT Office Visit [facility] Medical [facility] Multispecialty Care - [place] [address] [address] [place], [place] [phone] [place] [address] [place] [address] 157 [place], [place] [phone] Weight Problem Social History Tobacco Use Types [...] Sign Reading Time Taken Comments Blood Pressure 124/79 01/16/2024 7:05 AM CDT Pulse 63 01/16/2024 7:05 AM CDT Temperature 36.6 ??C (97.8 ??F) 01/16/2024 7:05 AM CD T Respiratory Rate 18 01/16/2024 7:05 AM CDT Oxygen Saturation 100% 01/16/2024 7:05 AM CDT Inhaled Oxygen Concentration - - Weight 72.6 kg (160 lb) 01/16/2024 7:05 AM CDT Height 165.1 cm (5' 5 ) 01/16/2024 7:05 AM CDT Body Mass Index 26.63 01/16/2024 7:05 AM CDT documented in this encounter Patient Instructions * Patient Instructions* Shabbir Natarajan MD - 01/16/2024 7:00 AM CDT Follow up in 4 weeks for your weight. * Attachments The following attachments cannot be sent through Care Everywhere. * Diet and health (Polish) documented in this encounter Progress Notes * Shabbir Natarajan MD - 01/16/2024 7:00 AM CDTSummary: Follow-up notes Images from the original note were not included. Internal Medicine Outpatient Progress Note CC: Weight Problem HPI: Nicci Blancas is a 43-year-old female who presents for follow- up for weight issues. She is here for her third refill. She has lost about 7 pounds over the last 4 weeks and reports she is tolerating medication well. She has been hydrating well. No chest pain or palpitations. She is working out daily. She is hydrating well. She has been monitoring her blood pressures and reports her home blood pressures at home are controlled. She is currently on phentermine 37.5 mg daily. She isconcerned about long-term weight gain. We discussed adding topiramate. Problem List Patient Active Problem List Diagnosis Rash and nonspecific skin eruption Past Medical History: Diagnosis Date 2009 Past Surgical History: Procedure Laterality Date [...] Outpatient Medications Marked as Taking for the 01/16/24 encounter (Office Visit) with Shabbir Natarajan MD Medication Sig Dispense Refill azelastine (ASTELIN) 0.1 % nasal spray 1 spray by Nasal route 2 (two) times daily. Use in each nostril as directed 30 mL 5 biotin 300 MCG Tab Take 1 tablet (300 mcg total) by mouth daily. 90 tablet 1 fluticasone propionate (FLONASE) 50 MCG/ACT nasal spray [...] tablet by mouth daily. 90 tablet 3 topiramate (TOPAMAX) 25 MG tablet Take 1 tablet (25 mg total) by mouth daily. 90 tablet 0 Allergies: Review of patient's allergies indicates: No Known Allergies Review of Systems Constitutional: Positive for weight loss (Intentional). Negative for chills, diaphoresis, fever andmalaise/fatigue. HENT: Negative. Eyes: Negative. Respiratory: Negative. Cardiovascular: Negative for chest pain, palpitations, orthopnea, claudication, leg swelling and PND. Gastrointestinal: Negative. Genitourinary: Negative. Musculoskeletal: Negative. Neurological: Negative. Objective: Filed Vitals: 01/16/24 0705 BP: 124/79 Pulse: 63 Resp: 18 Temp: 97.8 ??F (36.6 ??C) TempSrc: Temporal SpO2: 100% Weight: 72.6 kg (160 lb) Height: 1.651 m (5' 5 ) Body mass index is 26.63 kg/m??. General alert, cooperative, no distress HEENT [...] E66.3 BODY MASS INDEX 25-29 - OVERWEIGHT phentermine (ADIPEX-P) 37.5 MG tablet topiramate (TOPAMAX) 25 MG tablet 1. Overweight (BMI 25.0-29.9) - phentermine (ADIPEX-P) 37.5 MG tablet; Take 1 tablet (37.5 mg total) by mouth every morning before breakfast. Dispense: 30 tablet; Refill: 0 - topiramate (TOPAMAX) 25 MG tablet; Take 1 tablet (25 mg total) by mouth daily. Dispense: 90 tablet; Refill: 0 -Losing weight appropriately. Tolerating medication well. --Pt has elevated weight with BMI Body mass index is 26.63 kg/m??., and will need to work hard on reducing carbohydrates and total calories. -You may use the free smart phone apps such as [employer] to help track calories and try to [...] per week and 5 pounds per month. -Follow-up 4 weeks Counseling given: Not Answered Tobacco comments: Counseled by Dr Natarajan. I personally spent a total of 30 minutes on the day of the encounter. This includes kabv-vc-vgif and vna-pwpo-mj-face time I provided on the day of the encounter & excludes time spent performing separately reportable services. Side effects and less common but more severe adverse effects of recommended medical therapies were explained to the patient. Follow up office visit in 1 month. Requested MyChart or telephone follow up prn if symptoms change,worsen, or persist, or if side effect of treatment is experienced. DRAGON: This dictation was at least in part performed using cocone and there may be some inherent flaws in this rn case mgr due to the nature of this program. Shabbir Natarajan MD Internal Medicine [facility], [facility]. documented in this encounter Plan of Treatment Upcoming Encounters Date Type Department Care Team (Late st Contact Info) Description 10/22/2024 7:20 AM CDT Office Visit [facility] Medical Group Multispecialty Care - [place] [address] [address] [place] [address] Shabbir Natarajan MD [address] [place] [address] documented as of this encounter Visit Diagnoses Diagnosis Overweight (BMI 25.0-29.9) Overweight documented in this encounter Care Teams Time Study Engineer Relationship Specialty Start Date End Date Shabbir Natarajan MD [address] [place] [address] PCP - General INTERNAL MEDICINE 09/05/22 documented as of this encounter
--- OUTSIDE RECORDS SUMMARY | 2024-05-13 22:41 | XMS_ITS | Encounter Summary ---
Author Organization [facility] Address [facility]. [place], [place] [address] [place] [address] Care Team Providers Care Chemical Mixer Name Role Phone Shabbir Natarajan MD Primary Care Provider [phone] Encounter Details Date Type Department Care Team (Late st Contact Info) Description 01/20/2024 MolecularMDt Message Enc [address] [place], [place] [phone] Shabbir Natarajan MD [address] [place] [address] 157 [place] [address] Side effects? Social History Tobacco Use Types Packs/Day Years [...] Description 10/22/2024 7:20 AM CDT [facility] [address] [place] [address] Shabbir Natarajan MD [address] [facility] 157 [place] [address] documented as of this encounter Visit Diagnoses Not on filedocumented in this encounter Care Teams Chemical Mixer Relationship Specialty Start Date End Date Shabbir Natarajan MD [address] [facility] 157 [place] [address] PCP - General INTERNAL MEDICINE 09/05/22 documented as of this encounter
--- OUTSIDE RECORDS SUMMARY | 2024-05-13 22:41 | XMS_ITS | Encounter Summary ---
Author Organization [facility] - [facility] Address [facility]. [place], [place] [address] [place] [address] Care Team Providers Care Lease Operator Name Role Phone Shabbir Natarajan MD Primary Care Provider [phone] Reason for Visit * Reason Comments Lab Draw Encounter Details Date Type Department Care Team (Late st Contact Info) Description 11/25/2022 11:40 AM CDT Allied Health/Nurse Visit [facility] Medical Group Multispecialty Care - [place] [address] [place] [address] [address] [place] [address] Shabbir Natarajan MD [address] [place] [address] 157 [place], [place] [phone] Lab Draw Social History Tobacco Use Types Packs/Day Years [...] on file documented as of this encounter Progress Notes * Maria Luisa Chun MA - 11/25/2022 11:40 AM CDTAddended by: MARIA LUISA CHUN on: 11/30/2022 10:24 AM Modules accepted: Orders * Maria Luisa Chun MA - 11/25/2022 11:40 AM CDT Pt presents today for lab redraw. Specimen was rejected from the lab on 11/23/22. Venipuncture was performed w/o difficulty in the left AC. Pt is not to be charged for this visit or venipuncture documented in this encounter Plan of Treatment Upcoming Encounters Date Type Department Care Team (Late st Contact Info) Description 10/22/2024 7:20 AM CDT Office Visit [facility] Medical Group Multispecialty Care - [place] [address] [address] [place] [address] Shabbir Natarajan MD [address] [place] [address] documented as of this encounter Procedures Procedure Name Priority Date/Time Associated Diagnosis Comments BASIC METABOLIC PANEL Routine 11/25/2022 8:08 AM CDT Serum potassium elevated documented in this encounter Results * BASIC METABOLIC PANEL (11/25/2022 8:08 AM CDT) SODIUM S/P/B 140 136 - 145 MMOL/L 11/25/2022 3:30 PM CDT -[facility] POTASSIUM S/P/B 4.9 3.5 - 5.1 MMOL/L 11/25/2022 3:30 PM CDT -[facility] CHLORIDE S/P/B 104 98 - 107 MMOL/L 11/25/2022 3:30 PM CDT -[facility] CO2 29.6 21 - 32 MMOL/L 11/25/2022 3:30 PM CDT -[facility] GLUCOSE 87 70 - 99 MG/DL 11/25/2022 3:30 PM CDT [facility] BUN 11 7 - 18 MG/DL 11/25/2022 3:30 PM CDT [facility] CREATININE S/P/B 0.78 0.55 - 1.02 MG/DL 11/25/2022 3:30 PM T [facility] CALCIUM S/P/B 9.0 8.4 - 10.5 MG/DL 11/25/2022 3:30 PM CDT [facility] ANION GAP 6.4 5 - 15 MMOL/L 11/25/2022 3:30 PM CDT [facility] Comment:REFERENCE RANGE NOT ESTABLISHED OSMOLALITY (CALC) 289 MOSM/KG 023 3:30 PM T [facility] Comment:REFERENCE RANGE NOT ESTABLISHED GFR ESTIMATE >90 >90 ML/MIN/1. 73 M2 11/25/2022 3:30 PM CDT [facility] GFR NOTES GFR REFERENCE S: 11/25/2022 3:30 PM CDT [facility] Comment: THE ESTIMATED GFR IS CALCULATED USING THE 2020 CKD-EPI EQUATION. THE FOLLOWING CATEGORIES FOR GRADING RENAL FUNCTION ARE RECOMMENDED BY THE INTERNATIONAL SOCIETY OF NEPHROLOGY (KDIGO 2012 CLINICAL PRACTICE GUIDELINE). G1,NORMAL OR HIGH: >89 ml/min/1.73 m2 G2,MILDLY DECREASED: 60-89 ml/min/1.73 m2 G3A,MILDLY TO MODERATELY DECREASED: 45-59 ml/min/1.73 m2 G3B,MODERATELY TO SEVERELY DECREASED: 30-44 ml/min/1.73 m2 G4,SEVERELY DECREASED: 15-29 ml/min/1.73 m2 G5,KIDNEY FAILURE: <15 ml/min/1.73 m2 11/25/2022 8:08 AM CDT us Shabbir Natarajan MD LABORATORY Final Result [facility] [address] [place] [address], documented in this encounter Visit Diagnoses Diagnosis Serum potassium elevated- Primary Hyperpotassemia documented in this encounter Care Teams Lease Operator Relationship Specialty Start Date End Date Shabbir Natarajan MD [address] [facility] [address] [place] [address] PCP - General INTERNAL MEDICINE 09/05/22 documented as of this encounter
--- OUTSIDE RECORDS SUMMARY | 2024-05-13 22:41 | XMS_ITS | Encounter Summary ---
Author Organization [facility] - [facility] Address [facility] [facility]. [place], [place] [address] [place] [address] Care Team Providers Care Print Production Associate Name Role Phone Shabbir Natarajan MD Primary Care Provider [phone] Reason for Visit * Reason Comments Follow Up Weight Problem Rash Encounter Details Date Type Department Care Team (Latest Contact Info) Description 02/21/2024 7:00 AM CDT Office Visit [facility] - [place] [address] [place] [address] [address] [place], [place] [id number] Shabbir Natarajan MD [address] [place] [address] [address] [place], [place] [id number] Follow Up; Weight Problem; Rash Social History Tobacco Use Types Packs/Day Years [...] Sign Reading Time Taken Comments Blood Pressure 117/71 02/21/2024 7:14 AM CDT Pulse 64 02/21/2024 7:14 AM CDT Temperature 36.4 ??C (97.5 ??F) 02/21/2024 7:14 AM CD T Respiratory Rate 16 02/21/2024 7:14 AM CDT Oxygen Saturation 100% 02/21/2024 7:14 AM CDT Inhaled Oxygen Concentration - - Weight 70.5 kg (155 lb 6.4 oz) 02/21/2024 7:14 A M CDT Height 165.1 cm (5' 5 ) 02/21/2024 7:14 AM CDT Body Mass Index 25.86 02/21/2024 7:14 AM CDT documented in this encounter Patient Instructions * Patient Instructions* Shabbir Natarjaan MD - 02/21/2024 7:00 AM CDT Follow up for your weight issues. * Attachments The following attachments cannot be sent through Care Everywhere. * Weight Loss Diet (Polish) documented in this encounter Progress Notes * Shabbir Natarajan MD - 02/21/2024 7:00 AM CDTSummary: Acute visit notes Images from the original note were not included. Internal Medicine Outpatient Progress Note CC: Follow Up, Weight Problem, and Rash HPI: Nicci Blancas is a 43-year-old female who presents for follow- up for weight issues. She is here for her fourth refill. She has lost about 5 pounds over the last 4 weeks and reports she is tolerating medication well. She has been hydrating well. No chest pain or palpitations. She isworking out daily. She is hydrating well. She has been monitoring her blood pressures and reports her home blood pressures at home are controlled. She is currently on phentermine 37.5 mg daily. She is also on topiramate 25 mg daily and doing well for now. She is doing well. Reports a little bump on her lower extremity from insect bites. Patient wants medication for this. She notices his skin reacts very easily to mosquito bites. Has 1 that is on her lower extremity thathas a brownish color and patient displeased with this 1. She has been using jhmx-ynj-gygrzed hydrocortisone cream which is not helping. No open sores. Problem List Patient Active Problem List Diagnosis [...] Outpatient Medications Marked as Taking for the 02/21/24 encounter (Office Visit) with Shabbir Natarajan MD [...] total) by mouth daily. 90 tablet 0 triamcinolone (KENALOG) 0.1 % cream Apply topically 2 (two) times daily. 45 g 0 Allergies: Review of patient's allergies indicates: No Known Allergies ROS Objective: Filed Vitals: 02/21/24 0714 BP: 117/71 Pulse: 64 Resp: 16 Temp: 97.5 ??F (36.4 ??C) TempSrc: Temporal SpO2: 100% Weight: 70.5 kg (155 lb 6.4 oz) Height: 1.651 m (5' 5 ) Body mass index is 25.86 kg/m??. General alert, cooperative, no distress HEENT [...] Plan: Encounter Diagnose(s) ICD-10-CM SNOMED CT(R) 1. Dermatitis L30.9 INFLAMMATORY DERMATOSIS triamcinolone (KENALOG) 0.1 % cream 2. Overweight (BMI 25.0-29.9) E66.3 BODY MASS INDEX [...] mouth daily. Dispense: 90 tablet; Refill: 0 -Fourth refill for phentermine and tolerating medication well with no adverse side effects. --Pt has elevated weight with BMI Body mass index is 25.86 kg/m??., and will need to work hard on reducing carbohydrates and total calories. -You may use the free smart phone apps such as Shopow to help track calories and try to [...] per week and 5 pounds per month. 2. Dermatitis - triamcinolone (KENALOG) 0.1 % cream; Apply topically 2 (two) times daily. Dispense: 45 g; Refill:0 Counseling given: Yes Tobacco comments: Counseled by Dr Natarajan. I personally spent a total of 30 minutes on the day of the encounter. This includes ilxe-uu-uoke and ups-opxd-oz-face time I provided on the day of the encounter & excludes time spent performing separately reportable services. Side effects and less common but more severe adverse effects of recommended medical therapies were explained to the patient. Follow up office visit in 3 months. Requested MyChart or telephone follow up prn if symptoms change, worsen, or persist, or if side effect of treatment is experienced. SAVANA: This dictation was at least in part performed using [employer] and there may be some inherent flaws in this lead teacher due to the nature of this program. Shabbir Natarajan MD Internal Medicine [facility], [facility]. documented in this encounter Plan of Treatment Upcoming Encounters Date Type Department Care Team (Late st Contact Info) Description 10/22/2024 7:20 AM CDT Office Visit [facility] Care - [place] [address] [address] [place] [address] Shabbir Natarajan MD [address] [place] [address] documented as of this encounter Visit Diagnoses Diagnosis Dermatitis- Primary Contact dermatitis and other eczema, due to unspecified cause Overweight (BMI 25.0-29.9) Overweight documented in this encounter Care Teams Print Production Associate Relationship Specialty Start Date End Date Shabbir Natarajan MD [address] [place] [address] PCP - General INTERNAL MEDICINE 4/10/23 documented as of this encounter
--- OUTSIDE RECORDS SUMMARY | 2024-05-13 22:41 | XMS_ITS | Encounter Summary ---
Author Organization [facility] - [facility] Address [address] [place] [address]. [place], [place] [address] [place] [address] Care Team Providers Care Drilling Foreman Name Role Phone Shabbir Natarajan MD Primary Care Provider [phone] Reason for Visit * Reason Onset Date Comments Record Request 07/20/2023 Encounter Details Date Type Department Care Team (Late st Contact Info) Description 07/20/2023 Telephone [facility] - [place] [address] [place] [address] [address] [place] [address] [place] [address] [place] [address] [address] [place], [place] [id number] Record Request Social History Tobacco Use Types Packs/Day Years [...] as of this encounter Progress Notes * Vilma Hammonds - 07/20/2023 8:08 AM CST Requested most recent Bilateral Mammogram from [facility]. Response from [facility] - No imaging for this patient. 07/25/2023 STYLIST STYLIST documented in this encounter Plan of Treatment Upcoming Encounters Date Type Department Care Team (Late st Contact Info) Description 10/22/2024 7:20 AM CDT Office Visit [facility] Medical [facility] Multispecialty [facility] [address] [address] [place] [address] Shabbir Natarajan MD [address] [place] [address] documented as of this encounter Visit Diagnoses Not on filedocumented in this encounter Care Teams Drilling Foreman Relationship Specialty Start Date End Date Shabbir Natarajan MD [address] [place] [address] PCP - General INTERNAL MEDICINE 09/05/22 documented as of this encounter
--- OUTSIDE RECORDS SUMMARY | 2024-05-13 22:41 | XMS_ITS | Clinical Summary ---
Author Organization [facility] Address [facility] [place] [address] [place] [address] Care Team Providers Care Tube Worker Name Role Phone Shabbir Natarajan MD Primary Care Provider [phone] Allergies No known active allergies Medications melatonin 1 MG tablet Take 1 tablet (1 mg total) by mouth nightly as needed (10 mg). Active azelastine (ASTELIN) 0.1 % nasal sprayIndicatio ns:Environment al and seasonal allergies 1 spray by Nasal route 2 (two) times daily. Use in each nostril as directed 30 mL 5 4 Active fluticasone propionate (FLONASE) 50 MCG/ACT nasal sprayIndicatio ns:Environment al and seasonal allergies 2 sprays by Nasal route daily. 16 g 5 4 Active biotin 300 MCG TabIndications :Loss of hair Take 1 tablet (300 mcg total) by mouth daily. 90 tablet 1 4 Active triamcinolone (KENALOG) 0.1 % creamIndicatio ns:Dermatitis Apply topically 2 (two) times daily. 45 g 4 Active ( VITAMINS) 28-0.8 MG tabletIndicati ons:Loss of hair Take 1 tablet by mouth daily. 90 tablet 4 Active topiramate (TOPAMAX) 25 MG tabletIndicati ons:Overweight (BMI 25.0-29.9) Take 1 tablet (25 mg total) by mouth daily. 90 tablet 4 Active topiramate (TOPAMAX) 50 MG TabIndications :Overweight (BMI 25.0-29.9) Take 1 tablet (50 mg total) by mouth daily. 90 tablet 1 4 05/02/20 Discontinue d(Reorder) doxycycline hyclate (VIBRAMYCIN) 100 MG capsuleIndicat ions:Labial cyst Take 1 capsule (100 mg total) by mouth 2 (two) times daily for 10 days. Take with food 20 capsule 4 04/21/20 Active Problems Problem Noted Date Diagnosed Date Rash and nonspecific skin eruption 10/13/2023 Encounters Date Type Department Care Team Description 05/13/2024 MyChart Message Enc [place] [address] [address] [facility] [address] [place] [address] Shabbir Natarajan MD Mammography 05/02/2024 Orders Only [place] [address] [facility] [address] [place] [address] Shabbir Natarajan MD 05/01/2024 MyChart Message Enc [place] [address] [facility] [address] [place] [address] Shabbir Natarajan MD Hair Loss 04/11/2024 9:00 AM SUPERVISOR CONTINGENTS Office Visit [place] [address] [facility] [address] [place] [address] Jolynn Parada NP Vaginal Problem (Sore on the vagina) 04/11/2024 Travel 03/22/2024 7:20 AM CDT Office Visit [place] [address] [facility] [address] [place] [address] Shabbir Natarajan MD Follow Up; Weight Problem 03/22/2024 Travel 03/01/2024 MyChart Message Enc [place] [address] [facility] [address] [place] [address] Shabbir Natarajan MD Doubt 02/21/2024 7:00 AM CDT Office Visit [facility] Medical Group Multispecialty Care - [place] [address] [place] [address] Shabbir Natarajan MD Follow Up; Weight Problem; Rash 02/21/2024 MyChart Message Enc [facility] Medical [facility] Mult[facility]ial[facility] Care - [place] [address] [place] [address] Shabbir Natarajan MD Dentist appointment 02/21/2024 Travel from Last 3 Months Immunizations Name Administration Dates Next Due [employer] ([employer]) COVID-19 AD26 VACCINE 0.5 ML IM SUSP 09/26/2020 PFIZER COVID-19 BIVALENT (12 +) mRNA, LNP-S, PF, 30 MCG/0.3 ML DOSE 02/26/2022,04/10/2021 Tdap (Generic) 09/08/2021 Family History Medical History Relation Comments No Known Problems Father Hypertension Maternal Grandfather Cancer Maternal Uncle Hypertension Mother Cancer Paternal Grandmother Hypertension Sister Relation Status Comments Father Alive Maternal Grandfather Maternal Uncle Mother Alive Paternal Grandmother Sister Social History Tobacco Use Types Packs/Day Years [...] on file Sexual Orientation Not on file Last Filed Vital Signs Vital Sign Reading Time Taken Comments Blood Pressure 104/71 04/11/2024 9:01 AM SUPERVISOR CONTINGENTS Pulse 63 04/11/2024 9:01 AM SUPERVISOR CONTINGENTS Temperature 36.4 ??C (97.6 ??F) 04/11/2024 9:01 AM CS T Respiratory Rate 18 04/11/2024 9:01 AM SUPERVISOR CONTINGENTS Oxygen Saturation 100% 04/11/2024 9:01 AM SUPERVISOR CONTINGENTS Inhaled Oxygen Concentration - - Weight 67.8 kg (149 lb 6.4 oz) 04/11/2024 9:01 A M SUPERVISOR CONTINGENTS Height 165.1 cm (5' 5 ) 04/11/2024 9:01 AM SUPERVISOR CONTINGENTS Body Mass Index 24.86 04/11/2024 9:01 AM SUPERVISOR CONTINGENTS Plan of Treatment Upcoming Encounters Date Type Department Care Team (Late st Contact Info) Description 10/22/2024 7:20 AM CDT Office Visit [facility] Medical Group Multispecialty Care - [place] [address] [place] [address] [address] [place] [address] Shabbir Natarajan MD [address] [facility] [address] [place] [address] Health Maintenance Due Date Last Done Comments Hepatitis B Vaccines (1 of 3 - 19+ 3-dose series) 09/28/1998 Mammogram Screening 04/06/2023 04/06/2021, 04/06/2021 COVID-19 Vaccine (2023-2 5 season) 2024 02/26/2022, 04/10/2021, 09/26/2020 Influenza Adult (#1) 2024 Annual Physical 10/16/2024 10/17/2023, 10/11/2022 Cervical Cancer Screening Pa p Smear (Age 30 to 64) Every 3 Years 10/18/2025 10/18/2022 Cervical Cancer Screening Pa p with HPV Testing (Age 30 to 64) Every 5 Years 10/19/2027 10/18/2022 Cervical Cancer Screening wi th HPV 10/19/2027 DTaP, Tdap and Td Vaccines ( 2 - Td or Tdap) 09/09/2031 09/08/2021 Hepatitis C Completed 10/21/2022 HPV Vaccines Aged Out No longer eligi ble based on patient's age to complete this topic Meningococcal Vaccine Aged Out No tony savana eligible based on patient's age to complete this topic Pneumococcal Vaccine: Pediatrics (0 to 5 Years) and At-Risk Patients (6 to 64 Years) Aged Out No longer eligible b ased on patient's age to complete this topic RSV Immunizations Under 20 Months Aged Out No longer eligible b ased on patient's age to complete this topic Procedures Procedure Name Priority Date/Time Associated Diagnosis Comments HEPATITIS C ANTIBODY Routine 10/21/2022 4:43 PM CDT Encounter for hepatitis C screening test for low risk patient HUMAN PAPILLOMAVIRUS, HIGH-RISK TYPES Routine 10/18/2022 12:00 PM CDT CYTOPATH CERV/VAG THIN LAYER Routine 10/18/2022 7:30 AM CDT MAMMOGRAM GENERIC (SCAN ORDER) Routine 04/06/2021 from Last 3 Months or Most Recently Relevant to Health Maintenance Results * HEPATITIS C ANTIBODY ([facility] ONLY) (10/21/2022 4:43 PM CDT) HEPATITIS C AB NON-REACTI VE NON-REACT BEATRIZ 10/23/2022 8:45 PM CDT [facility] Comment: ANTIBODIES TO HCV NOT DETECTED. DOES NOT EXCLUDE THE POSSIBILITY OF EXPOSURE TO HCV. 10/21/2022 4:43 PM CDT Shabbir Natarajan MD LABORATORY Final Result [facility] [address] [place] [address], [place] [phone] [phone] * HUMAN PAPILLOMAVIRUS, HIGH-RISK TYPES (10/18/2022 12:00 PM CDT) SPEC DESCRIPTION CERVICAL/END OCERVICAL 10/20/2022 8:05 AM CDT [facility] HPV DNA HIGH RISK NEGATIVE NEGATIVE 10/21/2022 1:25 PM CDT [facility] Comment:SEE CYTOLOGY REPORT 10/18/2022 12:0 0 PM CDT us Shabbir Natarajan MD PATHOLOGY/CYTOLOGY ORDERABLES Fi nal Result [facility] [address] [place] [address], [place] [phone] * Cytopath Cerv/Vag Thin Layer (10/18/2022 7:30 AM CDT) THIN PREP PAP ? [facility] ?[address] ?[place] [address] ? Department of Pathology ? Pathology Report ? CERVICAL/VAGINAL PAP SMEAR REPORT Name: PASSONI, NICCI ? Age: 5 1980 (Age: 42) ? Location: [facility] Sex: F ?Collected Date: 10/18/2022 Hospital #: [id number] ?Date Received: 10/20/2022 Date Reported: 10/25/2022 Provider: SHABBIR NATARAJAN MD INTERPRETATION CERVICAL/ENDOCERVI LYDIA: ? SATISFACTORY FOR EVALUATION. ENDOCERVICAL/TRANS FORMATION ZONE COMPONENT ABSENT. ? NEGATIVE FOR INTRAEPITHELIAL LESION OR MALIGNANCY. NEGATIVE FOR HIGH RISK HPV. The FDA approved Aptima HPV assay is an in vitro nucleic acid amplification test for the qualitative detection of E6/E7 viral messenger RNA (mRNA) from 14 high-risk types of human papillomavirus (HPV) in cervical specimens. ??The high-risk HPV types detected by the assay include: 16,18,31,33,35,39, 45,51,52,56,58,59, 66, and 68. Electronically Signed Out By SWETHA Stanford (ASCP) CLINICAL HISTORY Z12.4 SCREENING PAP TEST ThinPrep Pap Test with HR HPV testing in patient > 30 years requested. Date of Last Menstrual Period: ? 09/29/22 Menstrual Status: Regular SPECIMEN SUBMITTED CERVICAL/ENDOCERVI LYDIA ?Specimen Received:1 Thin Prep Vial, Image Assisted Pap (SMD) ? Please note: The Pap smear is not a diagnostic test. ??It is a screening test. ??Negative results on combined screening (Pap test and HPV-DNA) have a high negative predictive value (99.1-100 percent) for cervical cancer. ??The pap test is not effective in detecting cervical adenocarcinoma. [facility] 10/18/2022 7:30 AM CDT 10/20/2022 7:30 AM CDT Comment:CERVICAL/ENDOCERVICA L us Shabbir Natarajan MD PATHOLOGY/CYTOLOGY ORDERABLES Fi nal Result [facility] [address] [place] [address], * MAMMOGRAM (04/06/2021) Anatomical Region Laterality Modality Other us Doc Med Group Scanned SCANNING Final Resu lt from Last 3 Months or Most Recently Relevant to Health Maintenance Insurance [facility] Care Teams Tube Worker Relationship Specialty Start Date End Date Shabbir Natarajan MD [address] [facility] [address] [place], [place] [id number] PCP - General INTERNAL MEDICINE 09/05/22
--- OUTSIDE RECORDS SUMMARY | 2024-05-13 22:41 | XMS_ITS | Encounter Summary ---
Author Organization [facility] - [facility] Address [facility]6 [facility]. [place], [place] [address] [place] [address] Care Team Providers Care Slip Presser Name Role Phone Shabbir Natarajan MD Primary Care Provider Encounter Details Date Type Department Care Team (Latest Contact Info) Description 10/13/2023 Travel Social History Tobacco Use Types Packs/Day [...] Description 10/22/2024 7:20 AM CDT Office Visit [facility] Medical Group Multispecialty Care - [place] [address] [address] [place] [address] Shabbir Natarajan MD [address] [place] [phone] documented as of this encounter Visit Diagnoses Not on filedocumented in this encounter Care Teams Slip Presser Relationship Specialty Start Date End Date Shabbir Natarajan MD [address] [place] [address] PCP - General INTERNAL MEDICINE 09/05/22 documented as of this encounter
--- OUTSIDE RECORDS SUMMARY | 2024-05-13 22:41 | XMS_ITS | Encounter Summary ---
Author Organization [facility] Address [facility]6 [facility] [place] [address] [place] [address] Care Team Providers Care Field Operator Name Role Phone Shabbir Natarajan MD Primary Care Provider [phone] Encounter Details Date Type Department Care Team (Late Contact Info) Description 01/27/2024 Neurelist [facility] [address] [place] [address] Shabbir Natarajan MD [address] [place] [address] Doubt Social History Tobacco Use Types [...] Description 10/22/2024 7:20 AM CDT Office Visit [facility] Multispecialty [address] [place], [place] [id number] Shabbir Natarajan MD [address] [place] [address] [place] [address] documented as of this encounter Visit Diagnoses Not on filedocumented in this encounter Care Teams Field Operator Relationship Specialty Start Date End Date Shabbir Natarajan MD [address] [facility] [address] [place] [address] PCP - General INTERNAL MEDICINE 09/05/22 documented as of this encounter
--- OUTSIDE RECORDS SUMMARY | 2024-05-13 22:41 | XMS_ITS | Encounter Summary ---
Author Organization [facility] - [facility] Address [facility]6 [facility]. [place], [place] [address] [place] [address] Care Team Providers Care Carport Erector Name Role Phone Shabbir Natarajan MD Primary Care Provider Encounter Details Date Type Department Care Team (Latest Contact Info) Description 01/16/2024 Travel Social History Tobacco Use Types Packs/Day [...] Description 10/22/2024 7:20 AM CDT Office Visit [facility] Medical Group Multispecialty Care - [place] [address] [address] [place] [address] Shabbir Natarajan MD [address] [place] [phone] documented as of this encounter Visit Diagnoses Not on filedocumented in this encounter Care Teams Carport Erector Relationship Specialty Start Date End Date Shabbir Natarajan MD [address] [place] [address] PCP - General INTERNAL MEDICINE 09/05/22 documented as of this encounter
--- OUTSIDE RECORDS SUMMARY | 2024-05-13 22:41 | XMS_ITS | Encounter Summary ---
Author Organization [facility] - [facility] Address Counts include 234 beds at the [facility] [place] [address] [place] [address] Care Team Providers Care Drafting Instructor Name Role Phone Shabbir Natarajan MD Primary Care Provider [phone] Reason for Visit * Reason Comments Finger pain Right index finger r ed and swollen. Purple and black. No pain no itching. But getting darker Encounter Details Date Type Department Care Team (Late st Contact Info) Description 10/13/2023 3:20 PM CDT Office Visit [facility] - [place] [address] [place], [place] [id number] Chico Parada, REHABILITATION CONSULTANT [address] [place], [place] [id number] Finger pain (Right index finger red and swollen. Purple and black. No pain no itching. But getting darker) Social History Tobacco Use Types Packs/Day Years [...] Sign Reading Time Taken Comments Blood Pressure 132/79 10/13/2023 3:24 PM CDT Pulse 69 10/13/2023 3:24 PM CDT Temperature 36.3 ??C (97.4 ??F) 10/13/2023 3:24 PM CD T Respiratory Rate 18 10/13/2023 3:24 PM CDT Oxygen Saturation 100% 10/13/2023 3:24 PM CDT Inhaled Oxygen Concentration - - Weight 80.5 kg (177 lb 6.4 oz) 10/13/2023 3:24 P M CDT Height 165.1 cm (5' 5 ) 10/13/2023 3:24 PM CDT Body Mass Index 29.52 10/13/2023 3:24 PM CDT documented in this encounter Progress Notes * Chico Parada NP - 10/13/2023 3:20 PM CDTSummary: redness finger Images from the original note were not included. Internal Medicine Outpatient Progress Note CC: Right hand index finger swollen and red HPI: Nicci Blancas is a 43-year-old female who presents for swollen finger Patient has history of below: Review of Systems Constitutional: Negative. HENT: Negative. Eyes: Negative. Respiratory: Negative. Cardiovascular: Negative. Skin: Right hand in between 2nd and 3rd fingers Neurological: Negative. Psychiatric/Behavioral: Negative. Past Medical History: History reviewed. No pertinent past medical history. Family History: Family History Problem Relation Name Age of Onset No Known Problems Mother No Known Problems Father Cancer Paternal Grandmother Social History: Social History Tobacco Use Smoking status: Never Smokeless tobacco: Never Tobacco comments: Counseled by Dr Natarajan. Vaping Use Vaping status: Never Used Substance Use Topics Alcohol use: Never Drug use: Never Medications: Outpatient Medications Marked as Taking for the 10/13/23 encounter (Office Visit) with Chico Parada NP Medication Sig Dispense Refill azelastine (ASTELIN) 0.1 % nasal spray 1 spray by Nasal route 2 (two) times daily. Use in each nostril as directed 30 mL 5 cephALEXin (KEFLEX) 500 MG capsule Take 1 capsule (500 mg total) by mouth 3 (three) times daily for7 days. Take with food 21 capsule 0 fluticasone propionate (FLONASE) 50 MCG/ACT nasal spray 2 sprays by Nasal route daily. 16 g 5 mupirocin (BACTROBAN) 2 % ointment Apply topically daily. Use daily as needed. 30 g 1 Allergies: Review of patient's allergies indicates: Patient has no known allergies. ? Objective: Filed Vitals: 10/13/23 1524 BP: 132/79 Pulse: 69 Resp: 18 Temp: 97.4 ??F (36.3 ??C) TempSrc: Oral SpO2: 100% Weight: 80.5 kg (177 lb 6.4 oz) Height: 1.651 m (5' 5 ) Body mass index is 29.52 kg/m??. Physical Exam Constitutional: Appearance: Normal appearance. Eyes: Conjunctiva/sclera: Conjunctivae normal. Cardiovascular: Rate and Rhythm: Normal rate and regular rhythm. Heart sounds: Normal heart sounds. No murmur heard. Pulmonary: Effort: Pulmonary effort is normal. No respiratory distress. Breath sounds: Normal breath sounds. No wheezing. Skin: General: Skin is warm. Comments: In between 2nd and third fingers erythema and echymosis Neurological: Mental Status: She is alert. Psychiatric: Mood and Affect: Mood normal. Judgment: Judgment normal. Assessment and Plan: 1. Rash and nonspecific skin eruption - cephALEXin (KEFLEX) 500 MG capsule; Take 1 capsule (500 mg total) by mouth 3 (three) times daily for 7 days. Take with food Dispense: 21 capsule; Refill: 0 Bruising vs cellulitis Will cover infection w Keflex, monitor symptoms Side effects and less common but more severe adverse effects of recommended medical therapies were explained to the patient. Patient reminded to use MyChart or telephone follow up prn if symptoms change, worsen, or persist, or if side effect of treatment is experienced. RTC as scheduled DRAGON: This dictation was at least in part performed using [employer] and there may be some inherent flaws in this purchasing/receiving due to the nature of this program. CHICO PARADA NP 10/13/2023 [facility], [facility]. documented in this encounter Plan of Treatment Upcoming Encounters Date Type Department Care Team (Late st Contact Info) Description 10/22/2024 7:20 AM CDT Office Visit [facility] - [place] [address] [address] [place] [address] Shabbir Natarajan MD [address] [place] [address] documented as of this encounter Visit Diagnoses Diagnosis Rash and nonspecific skin eruption- Primary Rash and other nonspecific skin eruption documented in this encounter Care Teams Drafting Instructor Relationship Specialty Start Date End Date Shabbir Natarajan MD [address] [place] [address] PCP - General INTERNAL MEDICINE 09/05/22 documented as of this encounter
--- OUTSIDE RECORDS SUMMARY | 2024-05-13 22:41 | XMS_ITS | Encounter Summary ---
Author Organization [facility] - [facility] Address [facility]6 [facility]. [place], [place] [address] [place] [address] Care Team Providers Care J2Ee Architect Name Role Phone Shabbir Natarajan MD Primary Care Provider [phone] Encounter Details Date Type Department Care Team (Latest Contact Info) Description 12/13/2023 Travel Social History Tobacco Use Types Packs/Day [...] Description 10/22/2024 7:20 AM CDT Office Visit [facility] Care - [place] [address] [address] [place] [address] Shabbir Natarajan MD [address] [place] [phone] documented as of this encounter Visit Diagnoses Not on filedocumented in this encounter Care Teams J2Ee Architect Relationship Specialty Start Date End Date Shabbir Natarajan MD [address] [place] [address] PCP - General INTERNAL MEDICINE 09/05/22 documented as of this encounter
--- OUTSIDE RECORDS SUMMARY | 2024-05-13 22:41 | XMS_ITS | Encounter Summary ---
Author Organization [facility] - [facility] Address [facility]6 [facility]. [place], [place] [address] [place] [address] Care Team Providers Care Clinical Account Executive Name Role Phone Shabibr Natarajan MD Primary Care Provider [phone] Reason for Visit * Reason Comments Weight Problem Lab Results Encounter Details Date Type Department Care Team (Latest Contact Info) Description 12/13/2023 7:00 AM CDT Office Visit [facility] - [place] [address] [place] [address] [address] [place], [place] [address] Shabbir Natarajan MD [address] [place] [address] 157 [place], [place] [id number] Weight Problem; Lab Results Social History Tobacco Use Types Packs/Day Years [...] Sign Reading Time Taken Comments Blood Pressure 118/73 12/13/2023 7:01 AM CDT Pulse 72 12/13/2023 7:01 AM CDT Temperature 36.9 ??C (98.5 ??F) 12/13/2023 7:01 AM CD T Respiratory Rate 18 12/13/2023 7:01 AM CDT Oxygen Saturation 100% 12/13/2023 7:01 AM CDT Inhaled Oxygen Concentration - - Weight 76 kg (167 lb 9.6 oz) 12/13/2023 7:01 AM CDT Height 165.1 cm (5' 5 ) 12/13/2023 7:01 AM CDT Body Mass Index 27.89 12/13/2023 7:01 AM CDT documented in this encounter Patient Instructions * Patient Instructions* Shabbir Natarajan MD - 12/13/2023 7:00 AM CDT Please get preparation-H over the counter to help with hemorrhoid and get miralax to help with constipation. You can get these two medications over the counter. Please use Excedrin over the counter to help with the headaches. * Attachments The following attachments cannot be sent through Care Everywhere. * Weight Loss Tips (Frisian) documented in this encounter Progress Notes * Shabbir Natarajan MD - 12/13/2023 7:00 AM CDTSummary: Follow up notes Images from the original note were not included. Internal Medicine Outpatient Progress Note CC: Weight Problem HPI: Nicci Blancas is a 43-year-old female who presents for follow up for weight issuesand here for her 2nd refill. She has lost about 10 ibs over the last 2 months and reports she is tolerating medication well. She has been hydrating well. No chest pain or palpitations. She is workingout daily. She is hydrating well. She has been monitoring her blood pressures and reports her home blood pressures at home are controlled. She is currently on phentermine 37.5 mg daily. She did bring to my attention that she recently had QuantiFERON blood work done as part of her workup for immigration to get her green card and results came back positive. Subsequently had 2 chest x-rays which came back negative. Wanting to know if she needs to be treated as she is very asymptomatic. She feels well. She however did bring to my attention testing positive for COVID the day after her QuantiFERON test. Discussed with patient about repeating QuantiFERON test in a few months down theline. Problem List Patient Active Problem List Diagnosis Rash and nonspecific skin eruption Past Medical History: Diagnosis Date Anxiety 2009 Past Surgical History: Procedure Laterality Date SECTION Family History Problem Relation Name Age of Onset Hypertension Mother Ilde No Known Problems Father Cancer Paternal Grandmother Lamaru Hypertension Maternal Grandfather Malvin Cancer Maternal Uncle Malvin Hypertension Sister Silvia Social History Tobacco Use Smoking status: Never Smokeless tobacco: Never Tobacco comments: Counseled by Dr Natarajan. Vaping Use Vaping status: Never Used Substance Use Topics Alcohol use: Never Drug use: Never Medications: Outpatient Medications Marked as Taking for the 12/13/23 encounter (Office Visit) with Shabbir Natarajan MD [...] mg total) by mouth every morning before breakfast for 30 days. 30 tablet 0 ( VITAMINS) 28-0.8 MG tablet Take 1 tablet by mouth daily. 90 tablet 3 Allergies: Review of patient's allergies indicates: No Known Allergies Review of Systems Constitutional: Positive for weight loss (intentional). Negative for chills, diaphoresis, fever andmalaise/fatigue. HENT: Negative. Eyes: Negative. Respiratory: Negative. Cardiovascular: Negative for chest pain, palpitations, orthopnea, claudication, leg swelling and PND. Gastrointestinal: Negative. Genitourinary: Negative. Musculoskeletal: Negative. Skin: Negative. Neurological: Negative. Psychiatric/Behavioral: Negative. Objective: Filed Vitals: 12/13/23 0701 BP: 118/73 Pulse: 72 Resp: 18 Temp: 98.5 ??F (36.9 ??C) TempSrc: Temporal SpO2: 100% Weight: 76 kg (167 lb 9.6 oz) Height: 1.651 m (5' 5 ) Body mass index is 27.89 kg/m??. General alert, cooperative, no distress HEENT [...] - OVERWEIGHT phentermine (ADIPEX-P) 37.5 MG tablet 1. Overweight (BMI 25.0-29.9) - phentermine (ADIPEX-P) 37.5 MG tablet; Take 1 tablet (37.5 mg total) by mouth every morning before breakfast for 30 days. Dispense: 30 tablet; Refill: 0 -This is a second refill for phentermine. Tolerating medication well with no side effects. - -Pt has elevated weight with BMI Body mass index is 27.89 kg/m??., and will need to work hard on reducing carbohydrates and total calories. -You may use the free smart phone apps such as [employer] to help track calories and try to [...] 5 pounds per month. -Follow-up 4 weeks Positive QuantiFERON test -Will plan to repeat his QuantiFERON test in about 3 months from now. Patient reports having COVID at the time of having blood work done. Chest x-rays done 2 times were all negative. -Test was done in October 2023 Counseling given: Not Answered Tobacco comments: Counseled by Dr Natarajan. I personally spent a total of 30 minutes on the day of the encounter. This includes [id number]-[id number] and ghc-khvg-ye-face time I provided on the day of [...] was at least in part performed using [employer] and there may be some inherent flaws in this director of counseling due to the nature of this program. Shabbir Natarajan MD Internal Medicine [facility], [place] [facility]. documented in this encounter Plan of Treatment Upcoming Encounters Date Type Department Care Team (Late st Contact Info) Description 10/22/2024 7:20 AM CDT Office Visit [facility] Multispecialty Care - [address] [place] [address] Shabbir Natarajan MD [address] [place] [address] 157 [place] [address] documented as of this encounter Visit Diagnoses Diagnosis Overweight (BMI 25.0-29.9)- Primary Overweight Positive QuantiFERON-TB Gold test Nonspecific reaction to cell mediated immunity measurement of gamma interferon antigen response without active tuberculosis documented in this encounter Care Teams Clinical Account Executive Relationship Specialty Start Date End Date Shabbir Natarajan MD [address] [address] PCP - General INTERNAL MEDICINE 09/05/22 documented as of this encounter
--- OUTSIDE RECORDS SUMMARY | 2024-05-13 22:41 | XMS_ITS | Encounter Summary ---
Author Organization [facility] - [facility] Address [facility]6 [facility]. [place], [place] [address] [place] [address] Care Team Providers Care Automatic Head Sawyer Name Role Phone Shabbir Natarajan MD Primary Care Provider [phone] Encounter Details Date Type Department Care Team (Latest Contact Info) Description 04/11/2024 Travel Social History Tobacco Use Types Packs/Day [...] CDT Office Visit [facility] Mult[facility]pecialty Care - [place] [address] [address] [place] [address] Shabbir Natarajan MD [address] [place] [phone] documented as of this encounter Visit Diagnoses Not on filedocumented in this encounter Care Teams Automatic Head Sawyer Relationship Specialty Start Date End Date Shabbir Natarajan MD [address] [place] [address] PCP - General INTERNAL MEDICINE 09/05/22 documented as of this encounter
--- OUTSIDE RECORDS SUMMARY | 2024-05-13 22:41 | XMS_ITS | Encounter Summary ---
Author Organization [facility] - [facility] Address [facility]6 [facility]. [place], [place] [address] [place] [address] Care Team Providers Care Family Partner Name Role Phone Shabbir Natarajan MD Primary Care Provider [phone] Reason for Visit * Reason Onset Date Comments Follow Up Call 11/23/2022 Encounter Details Date Type Department Care Team (Late st Contact Info) Description 11/23/2022 Telephone [facility] Mult[facility]pecialty Care - [place] [address] [place] [address] [address] [place] [address] Shabbir Natarajan MD [address] [facility] [address] [place], [place] [id number] Follow Up Call Social History Tobacco Use Types Packs/Day Years [...] Notes * Maria Luisa Chun MA - 11/24/2022 9:50 AM CDT We have 8am and 11:15am available. Just let me know which you prefer. The the lab stated it was a processing error on our end/that the tube of blood was not spun down. We spin certain blood tubes in a centrifuge to separate the blood from the serum. In your * Shabbir Natarajan MD - 11/23/2022 7:33 PM CDT Maria Luisa, The gold tube for BMP was not spun. Please call the patient back to have BMP drawn as soon as possible. Thank you. * Shabbir Natarajan MD - 11/23/2022 7:33 PM CDT ----- Message from Danica Guzman sent at 11/23/2022 6:42 PM CDT ----- Regarding: Unspun specimen The gold top tube was received unspun for the BMP test and had to be rejected. Please redraw if still needed. documented in this encounter Plan of Treatment Upcoming Encounters Date Type Department Care Team (Late st Contact Info) Description 10/22/2024 7:20 AM CDT Office Visit [facility] Mult[facility]pecialty Care - [place] [address] [address] [place] [address] Shabbir Natarajan MD [address] [place] [address] documented as of this encounter Visit Diagnoses Not on filedocumented in this encounter Care Teams Family Partner Relationship Specialty Start Date End Date Shabbir Natarajan MD [address] [place] [address] PCP - General INTERNAL MEDICINE 09/05/22 documented as of this encounter
--- OUTSIDE RECORDS SUMMARY | 2024-05-13 22:41 | XMS_ITS | Encounter Summary ---
Author Organization [facility] Address [facility]6 [facility] [place] [address] [place] [address] Care Team Providers Care Cardiology Consultant Name Role Phone Shabbir Natarajan MD Primary Care Provider [phone] Encounter Details Date Type Department Care Team (Late Contact Info) Description 11/09/2023 Ovo Cosmicot [facility] [address] [place] [address] Shabbir Natarajan MD [address] [place] [address] Question Social History Tobacco Use Types [...] 10/22/2024 7:20 AM CDT Office Visit [facility] Multispecialty [facility] - [address] [place], [place] [address] Shabbir Natarajan MD [address] [place] [address] [place] [address] documented as of this encounter Visit Diagnoses Not on filedocumented in this encounter Care Teams Cardiology Consultant Relationship Specialty Start Date End Date Shabbir Natarajan MD [address] [facility] 157 [place] [address] PCP - General INTERNAL MEDICINE 09/05/22 documented as of this encounter
--- OUTSIDE RECORDS SUMMARY | 2024-05-13 22:41 | XMS_ITS | Encounter Summary ---
Author Organization [facility] Address [facility]6 [facility]. [place], [place] [address] [place] [address] Care Team Providers Care Ditch Tender Name Role Phone Shabbir Natarajan MD Primary Care Provider [phone] Encounter Details Date Type Department Care Team (Latest Contact Info) Description 05/27/2023 Lingua.lyt Message Enc [address] [place], [place] [address] Shabbir Natarajan MD [address] [place] [address] 157 [place] [address] Key's Medication Social History Tobacco Use Types Packs/Day Years [...] Description 10/22/2024 7:20 AM CDT Office Visit [facility] Multispecialty [place] [address] [facility] [address] [place] [address] Shabbir Natarajan MD [address] [address] documented as of this encounter Visit Diagnoses Not on filedocumented in this encounter Care Teams Ditch Tender Relationship Specialty Start Date End Date Shabbir Natarajan MD [address] [address] PCP - General INTERNAL MEDICINE 09/05/22 documented as of this encounter
--- OUTSIDE RECORDS SUMMARY | 2024-05-13 22:41 | XMS_ITS | Encounter Summary ---
Author Organization [facility] Address [facility]6 [facility] [place] [address] [place] [address] Care Team Providers Care Clip Loading Machine Adjuster Name Role Phone Shabbir Natarajan MD Primary Care Provider [phone] Encounter Details Date Type Department Care Team (Late Contact Info) Description 05/13/2024 uAfricat Message [facility] [address] [place] [address] Shabbir Natarajan MD [address] [place] [address] Mammography Social History Tobacco Use Types Packs/Day Years [...] Description 10/22/2024 7:20 AM CDT Office Visit [facility] Multispecialty [address] [place], [place] [address] Shabbir Natarajan MD [address] [place] [address] [place] [address] documented as of this encounter Visit Diagnoses Not on filedocumented in this encounter Care Teams Clip Loading Machine Adjuster Relationship Specialty Start Date End Date Shabbir Natarajan MD 118[address] [facility] 157 [place] [address] PCP - General INTERNAL MEDICINE 09/05/22 documented as of this encounter
--- OUTSIDE RECORDS SUMMARY | 2024-05-13 22:41 | XMS_ITS | Encounter Summary ---
Author Organization [facility] - [facility] Address [facility]6 [facility]. [place], [place] [address] [place] [address] Care Team Providers Care Senior Mechanical Technician Name Role Phone Shabbir Natarajan MD Primary Care Provider [phone] Encounter Details Date Type Department Care Team (Latest Contact Info) Description 03/22/2024 Travel Social History Tobacco Use Types Packs/Day [...] Description 10/22/2024 7:20 AM CDT Office Visit [facility] Multispecialty Care - [place] [address] [address] [place] [address] Shabbir Natarajan MD [address] [place] [address] [phone] documented as of this encounter Visit Diagnoses Not on filedocumented in this encounter Care Teams Senior Mechanical Technician Relationship Specialty Start Date End Date Shabbir Natarajan MD [address] [place] [address] PCP - General INTERNAL MEDICINE 09/05/22 documented as of this encounter
--- OUTSIDE RECORDS SUMMARY | 2024-05-13 22:41 | XMS_ITS | Encounter Summary ---
Author Organization [facility] Address [facility]6 [facility]. [place], [place] [address] [place] [address] Care Team Providers Care Ac/Dc Rewinder Name Role Phone Shabbir Natarajan MD Primary Care Provider [phone] Reason for Visit * Reason Onset Date Comments Other 09/20/2023 Encounter Details Date Type Department Care Team ([facility] Contact Info) Description 09/20/[address] [address] Shabbir Natarajan MD [address] [place] [address] Other Social History Tobacco Use Types Packs/Day Years [...] 7:20 AM CDT [facility] [address] [place], [place] [address] Shabbir Natarajan MD [address] [facility] 157 [place] [address] documented as of this encounter Visit Diagnoses Not on filedocumented in this encounter Care Teams Ac/Dc Rewinder Relationship Specialty Start Date End Date Shabbir Natarajan MD [address] [facility] 157 [place] [address] PCP - General INTERNAL MEDICINE 09/05/22 documented as of this encounter
--- OUTSIDE RECORDS SUMMARY | 2024-05-13 22:41 | XMS_ITS | Encounter Summary ---
Author Organization [facility] Address [facility]6 [facility]. [place], [place] [address] [place] [address] Care Team Providers Care Straightedge Man Name Role Phone Shabbir Natarajan MD Primary Care Provider [phone] Encounter Details Date Type Department Care Team (Late st Contact Info) Description 05/01/2024 SceneDoct Message Enc [address] [place] [address] Shabbir Natarajna MD [address] [place] [address] Hair Loss Social History Tobacco Use Types Packs/Day Years [...] Description 10/22/2024 7:20 AM CDT [facility] [address] [place], [place] [id number] Shabbir Natarajan MD [address] [place] [address] 157 [place] [address] documented as of this encounter Visit Diagnoses Not on filedocumented in this encounter Care Teams Straightedge Man Relationship Specialty Start Date End Date Shabbir Natarajan MD 1188 [facility] 157 [place] [address] PCP - General INTERNAL MEDICINE 09/05/22 documented as of this encounter
--- OUTSIDE RECORDS SUMMARY | 2024-05-13 22:42 | XMS_ITS | Encounter Summary ---
Author Organization [facility] - [facility] Address [address] [place] [address]. [place], [place] [address] [place] [address] Care Team Providers Care Cancer Program Director Name Role Phone Shabbir Natarajan MD Primary Care Provider [phone] Reason for Visit * Reason Comments Channeler Outsole Exam Encounter Details Date Type Department Care Team (Late st Contact Info) Description 10/18/2022 10:20 AM CDT Office Visit [facility] Group Multispecialty Care - [address] [place] [address] [place] [address] [place] [address] 157 [place] [address] Channeler Outsole Exam Social History Tobacco Use Types Packs/Day Years [...] on file Sexual Orientation Not on file COVID-19 Exposure Response Date Recorded In the last 10 days, have yo u been in contact with someone who was confirmed or suspected to have Coronavirus/COVID-19? No / Unsure 10/18/2022 9:54 AM CDT documented as of this encounter Last Filed Vital Signs Vital Sign Reading Time Taken Comments Blood Pressure 135/87 10/18/2022 10:05 AM CDT Pulse 72 10/18/2022 10:05 AM CDT Temperature 37.1 ??C (98.7 ??F) 10/18/2022 10:05 AM C DT Respiratory Rate 18 10/18/2022 10:05 AM CDT Oxygen Saturation 100% 10/18/2022 10:05 AM CDT Inhaled Oxygen Concentration - - Weight 77.1 kg (170 lb) 10/18/2022 10:05 AM CDT Height 165.1 cm (5' 5 ) 10/18/2022 10:05 AM CDT Body Mass Index 28.29 10/18/2022 10:05 AM CDT documented in this encounter Patient Instructions * Patient Instructions* Shabbir Natarajan MD - 10/18/2022 10:20 AM CDT I will message you once I get your Pap reports. Safe trip to [place]! Nurse visit for fasting blood work. * Attachments The following attachments cannot be sent through Care Everywhere. * Cervical cancer screening tests (Vietnamese) documented in this encounter Progress Notes * Shabbir Natarajan MD - 10/18/2022 10:20 AM CDTSummary: Follow up notes Images from the original note were not included. Internal Medicine Outpatient Progress Note CC: Channeler Outsole Exam Nicci Lancaster is a 42-year-old Other female who presents for Pap smear. Patient's last Pap smear was done about 2 years ago in [place] and results were normal according to patient. Currently sexually active. Denies any concerns for abnormal vaginal discharge, abnormal vaginal spotting or bleeding, lower abdominal cramping or fullness. Denies any concerns for sexually transmitted infections. Her last menstrual period was about 2 weeks ago and usually lasts for about 4 days. She reports she has a prior history of a small uterine myoma which was previously being followed by her classroom technology technician and was stable. She has 1 biological child which she had via . Problem List There is no problem list on file for this patient. History reviewed. No pertinent past medical history. Past Surgical History: Procedure Laterality Date ??? SECTION Family History Problem Relation Name Age of Onset ??? No Known Problems Mother ??? No Known Problems Father ??? Cancer Paternal Grandmother Social History Tobacco Use ??? Smoking status: Never ??? Smokeless tobacco: Never ??? Tobacco comments: Counseled by Dr Natarajan. Vaping Use ??? Vaping Use: Never used Substance Use Topics ??? Alcohol use: Never ??? Drug use: Never Medications: Outpatient Medications Marked as Taking for the 10/18/22 encounter (Office Visit) with Shabbir Natarajan MD Medication Sig Dispense Refill ??? azelastine (ASTELIN) 0.1 % nasal spray 1 spray by Nasal route 2 (two) times daily. Use in each nostril as directed 30 mL 5 ??? fluticasone propionate (FLONASE) 50 MCG/ACT nasal spray 2 sprays by Nasal route daily. 16 g 5 ??? mupirocin (BACTROBAN) 2 % ointment Apply topically daily. Use daily as needed. 30 g 1 Allergies: No Known Allergies Review of Systems Constitutional: Negative for chills, diaphoresis, fever, malaise/fatigue and weight loss. HENT: Negative. Eyes: Negative. Respiratory: Negative. Cardiovascular: Negative for chest pain, palpitations, orthopnea, claudication, leg swelling and PND. Gastrointestinal: Negative. Genitourinary: Negative. Musculoskeletal: Negative. Neurological: Negative. Objective: Filed Vitals: 10/18/22 1005 BP: 135/87 Pulse: 72 Resp: 18 Temp: 98.7 ??F (37.1 ??C) TempSrc: Temporal SpO2: 100% Weight: 77.1 kg (170 lb) Height: 5' 5 (1.651 m) Body mass index is 28.29 kg/m??. General alert, cooperative, no distress HEENT [...] murmurs. No rubs, clicks, or gallops. Abdomen Genitourinary exam Soft, non-tender, non-distended. Bowel sounds normal. No masses. No hepatomegalyappreciated. General: normal Labia right: normal Labia left: normal Vagina: normal and pink Cervix:pink but with three whitish spots at the 9 o'oclock position Uterus: Adnexa right: Adnexa left Extremities Extremities atraumatic, no cyanosis, 2+ pedal pulses, no edema Skin Skin color, texture, turgor normal. No rashes or lesions appreciated. Neurologic No focal deficits, motor strength is grossly normal and symmetric Psych Normal mood and affect MSK No synovitis, no bony tenderness, no joint effusions Lymph No cervical or supraclavicular adenopathy Assessment and Plan: Encounter Diagnose(s) ICD-10-CM ICD-9-CM SNOMED CT(R) 1. Screening for cervical cancer Z12.4 V76.2 CANCER CERVIX SCREENING STATUS Cytopath Cerv/Vag Thin Layer HPV MRNA E6/E7 W/ RFLX GENOTYPES HPV MRNA E6/E7 W/ RFLX GENOTYPES Cytopath Cerv/Vag Thin Layer 1. Screening for cervical cancer - Cytopath Cerv/Vag Thin Layer; Future - HPV MRNA E6/E7 W/ RFLX GENOTYPES; Future - HPV MRNA E6/E7 W/ RFLX GENOTYPES - Cytopath Cerv/Vag Thin Layer -Further recommendations pending Pap results. She may need to see OBSTETRICS/GYNECOLOGY NURSE following her results. Counseling given: Yes Tobacco comments: Counseled by Dr Natarajan. I personally spent a total of 20 minutes on the day of the encounter. This includes kwmt-ps-ppmn and unk-dzyg-oy-face time I provided on the day of the encounter & excludes time spent performing separately reportable services. Side effects and less common but more severe adverse effects of recommended medical therapies were explained to the patient. Requested MyChart or telephone follow up prn if symptoms change, worsen, or persist, or if side effect of treatment is experienced. DRAGON: This dictation was at least in part performed using Whelse speak and there may be some inherent flaws in this mainframe developer due to the nature of this program. Shabbir Natarajan MD Internal Medicine [facility], [facility]. documented in this encounter Plan of Treatment Upcoming Encounters Date Type Department Care Team (Late st Contact Info) Description 10/22/2024 7:20 AM CDT Office Visit [facility] Group Multispecialty Care - [place] [address] [address] [place] [address] [place] [address] [place] [address] documented as of this encounter Visit Diagnoses Diagnosis Screening for cervical cancer- Primary Screening for malignant neoplasm of the cervix documented in this encounter Care Teams Cancer Program Director Relationship Specialty Start Date End Date Shabbir Natarajan MD [address] [place] [address] PCP - General INTERNAL MEDICINE 09/05/22 documented as of this encounter
--- OUTSIDE RECORDS SUMMARY | 2024-05-13 22:42 | XMS_ITS | Encounter Summary ---
Author Organization [facility] Address [facility]. [place], [place] [address] [place] [address] Care Team Providers Care Svp Monetization Name Role Phone Shabbir Natarajan MD Primary Care Provider [phone] Encounter Details Date Type Department Care Team (Latest Contact Info) Description 11/22/2022 Simple Crossingt Message Enc [address] [place] [id number] Shabbir Natarajan MD [address] [place] [address] 157 [place] [address] Medication (Spironolactone) Social History Tobacco Use Types Packs/Day Years [...] Description 10/22/2024 7:20 AM CDT Office Visit [facility] Multispecialty [place] [address] [facility] [address] [place] [address] Shabbri Natarajan MD 1188 [facility] 157 [place] [address] documented as of this encounter Visit Diagnoses Not on filedocumented in this encounter Care Teams Svp Monetization Relationship Specialty Start Date End Date Shabbir Natarajan MD 1188 [facility] 157 [place] [address] PCP - General INTERNAL MEDICINE 09/05/22 documented as of this encounter
--- OUTSIDE RECORDS SUMMARY | 2024-05-13 22:42 | XMS_ITS | Encounter Summary ---
Author Organization [facility] Address [facility]. [place], [place] [address] [place] [address] Care Team Providers Care Dental Cream Maker Name Role Phone Shabbir Natarajan MD Primary Care Provider [phone] Encounter Details Date Type Department Care Team (Latest Contact Info) Description 10/21/2022 Travel Social History Tobacco Use Types Packs/Day [...] suspected to have Coronavirus/COVID-19? No / Unsure 10/21/2022 8:46 AM CDT documented as of this encounter Plan of Treatment Upcoming Encounters Date Type Department Care Team (Late st Contact Info) Description 10/22/2024 7:20 AM CDT Office Visit [facility] Multispecialty Care - [address] [place], [place] [address] Shabbir Natarajan MD [address] [place] [address] [address] [place], [place] [address] documented as of this encounter Visit Diagnoses Not on filedocumented in this encounter Care Teams Dental Cream Maker Relationship Specialty Start Date End Date Shabbir Natarajan MD [address] [address] PCP - General INTERNAL MEDICINE 09/05/22 documented as of this encounter
--- OUTSIDE RECORDS SUMMARY | 2024-05-13 22:42 | XMS_ITS | Encounter Summary ---
Author Organization [facility] Address [address] [place] [address]. [place], [place] [address] [place] [address] Care Team Providers Care City Secretary Name Role Phone Shabbir Natarajan MD Primary Care Provider [phone] Encounter Details Date Type Department Care Team (Late Contact Info) Description 10/25/2022 MyChart Message Enc [facility] Medical Group Multispecialty Care - [place] [address] [place] [address] [address] [place], [place] [address] Shabbir Natarajan MD 1188 [facility] 157 [place] [address] Henrry Dorman Social History Tobacco Use Types Packs/Day Years [...] Description 10/22/2024 7:20 AM CDT Office Visit [facility] Group Multispecialty Care - [place] [address] [address] [place] [address] Shabbir Natarajan MD Count includes the [facility] [address] documented as of this encounter Visit Diagnoses Not on filedocumented in this encounter Care Teams City Secretary Relationship Specialty Start Date End Date Shabbir Natarajan MD [address] [place] [address] PCP - General INTERNAL MEDICINE 09/05/22 documented as of this encounter
--- OUTSIDE RECORDS SUMMARY | 2024-05-13 22:42 | XMS_ITS | Encounter Summary ---
Author Organization [facility] Address [facility]. [place], [place] [address] [place] [address] Care Team Providers Care Welding Machine Operator Thermit Name Role Phone Shabbir Natarajan MD Primary Care Provider [phone] Encounter Details Date Type Department Care Team (Latest Contact Info) Description 10/18/2022 Travel Social History Tobacco Use Types Packs/Day [...] Description 10/22/2024 7:20 AM CDT Office Visit [facility] Multispecialty Care - [address] [place], [place] [address] Shabbir Natarajan MD [address] [place] [address] [address] [place], [place] [address] documented as of this encounter Visit Diagnoses Not on filedocumented in this encounter Care Teams Welding Machine Operator Thermit Relationship Specialty Start Date End Date Shabbir Natarajan MD [address] [address] PCP - General INTERNAL MEDICINE 09/05/22 documented as of this encounter
--- OUTSIDE RECORDS SUMMARY | 2024-05-13 22:42 | XMS_ITS | Encounter Summary ---
Author Organization [facility] - [facility] Address [address] [place] [address]. [place], [place] [address] [place] [address] Care Team Providers Care Real Estate Consultant Name Role Phone Shabbir Natarajan MD Primary Care Provider [phone] Encounter Details Date Type Department Care Team (Late Contact Info) Description 10/21/2022 MyChart Message Enc [facility] Medical Group Multispecialty Care - [address] [place], [place] [address] Shabbir Natarajan MD 1188 [facility] 157 [place] [address] Blood Test Social History Tobacco Use Types Packs/Day Years [...] Description 10/22/2024 7:20 AM CDT Office Visit [facility] Medical Group Multispecialty Care - [place] [address] [address] [place] [address] [place] [address] [place] [address] documented as of this encounter Visit Diagnoses Not on filedocumented in this encounter Care Teams Real Estate Consultant Relationship Specialty Start Date End Date Shabbir Natarajan MD [facility] [address] PCP - General INTERNAL MEDICINE 09/05/22 documented as of this encounter
--- OUTSIDE RECORDS SUMMARY | 2024-05-13 22:42 | XMS_ITS | Encounter Summary ---
Author Organization [facility] - [facility] Address [address] [place] [address]. [place], [place] [address] [place] [address] Care Team Providers Care Recycling Tech Name Role Phone Shabbir Natarajan MD Primary Care Provider [phone] Encounter Details Date Type Department Care Team (Late Contact Info) Description 10/28/2022 Vioozerhart Message Enc [facility] Medical Group Multispecialty Care - [address] [place], [place] [id number] Shabbir Natarajan MD 1188 [facility] 157 [place] [address] Blood test Social History Tobacco Use Types Packs/Day Years [...] Description 10/22/2024 7:20 AM CDT Office Visit [facility] Medical Group Multispecialty Care - [place] [address] [address] [place] [address] [place] [address] [place] [address] documented as of this encounter Visit Diagnoses Not on filedocumented in this encounter Care Teams Recycling Tech Relationship Specialty Start Date End Date Shabbir Natarajan MD [facility] [address] [address] PCP - General INTERNAL MEDICINE 09/05/22 documented as of this encounter
--- OUTSIDE RECORDS SUMMARY | 2024-05-13 22:42 | XMS_ITS | Encounter Summary ---
Author Organization [facility] Address [address] [place] [address]. [place], [place] [address] [place] [address] Care Team Providers Care Machine Design Teacher Name Role Phone Shabbir Natarajan MD Primary Care Provider [phone] Reason for Visit * Reason Comments Mammogram (SCAN) Encounter Details Date Type Department Care Team (Late Contact Info) Description 04/06/2021 Scan [facility] [address] [place] [address] Scanned, Doc Med Group Mammogram (SCAN) Social History Tobacco Use Types Packs/Day Years Used Date Smoking Tobacco: Never Assessed PHQ-2 Answer Date Recorded Patient Health Questionnaire-2 Score 2 10/11/2022 Comments Unknown Sex and Gender Information Value Date Recorded [...] Description 10/22/2024 7:20 AM CDT Office Visit [facility] Group Multispecialty Care - [place] [address] [address] [place] [address] Shabbir Natarajan MD [address] [place] [address] [address] [place] [address] documented as of this encounter Procedures Procedure Name Priority Date/Time Associated Diagnosis Comments MAMMOGRAM GENERIC (SCAN ORDER) Routine 04/06/2021 documented in this encounter Results * MAMMOGRAM (04/06/2021) Anatomical Region Laterality Modality Other us Doc Med Group Scanned SCANNING Final Resu lt documented in this encounter Visit Diagnoses Not on filedocumented in this encounter Care Teams Machine Design Teacher Relationship Specialty Start Date End Date Shabbir Natarajan MD 118[address] [facility] [address] [place] [address] PCP - General INTERNAL MEDICINE 09/05/22 documented as of this encounter
--- OUTSIDE RECORDS SUMMARY | 2024-05-13 22:42 | XMS_ITS | Encounter Summary ---
Author Organization [facility] Address [facility]6 [facility]. [place], [place] [id number] [place] [id number] Care Team Providers Care Medical And Health Services Manager Name Role Phone Shabbir Natarajan MD Primary Care Provider [phone] Reason for Referral * Imaging (Routine) - Closed Specialty Diagnoses / Procedures Referred By Chilo jimenez Referred To Contact RADIOLOGY Diagnoses Encounter for screening mammogram for malignant neoplasm of breast Procedures MG SCREENING W ROYER KIMBERLY DIGI Shabbir Natarajan MD [address] [address] Phone: tel: fax: [facility] [address] [facility] [address] [place] [id number] Phone: tel: fax: Referral ID Status Reason Start Date Expiration Date V isits Requested Visits Authorized [id number] Closed Mammogram 10/11/2022 12/12/2023 99 99 Reason for Visit * Reason Comments Physical Allergies Skin Problem Encounter Details Date Type Department Care Team (Latest Contact Info) Description 10/11/2022 1:20 PM CDT Office Visit [facility] Medical Group Multispecialty Care - [address] [place], [place] [id number] Shabbir Natarajan MD 1189 [facility] 157 [place] [address] Physical; Allergies; Skin Problem Social History Tobacco Use Types Packs/Day [...] Sign Reading Time Taken Comments Blood Pressure 139/82 10/11/2022 1:40 PM CDT Pulse 64 10/11/2022 1:40 PM CDT Temperature 36.5 ??C (97.7 ??F) 10/11/2022 1:40 PM CD T Respiratory Rate 18 10/11/2022 1:40 PM CDT Oxygen Saturation 100% 10/11/2022 1:40 PM CDT Inhaled Oxygen Concentration - - Weight 79.1 kg (174 lb 6.4 oz) 10/11/2022 1:40 P M CDT Height 165.1 cm (5' 5 ) 10/11/2022 1:40 PM CDT Body Mass Index 29.02 10/11/2022 1:40 PM CDT documented in this encounter Patient Instructions * Patient Instructions* Shabbir Natarajan MD - 10/11/2022 1:20 PM CDT Follow-up in 4 weeks for your Pap smear. I have ordered for your mammogram to be done at [facility]. Our referral center should give you a call. Please reach out after 2 weeks if you do not hear from anyone at [phone]. * Attachments The following attachments cannot be sent through Care Everywhere. * Yearly Physical for Adults (Arabic) documented in this encounter Progress Notes * Shabbir Natarajan MD - 10/11/2022 1:20 PM CDTAddended by: SHABBIR NATARAJAN on: 10/12/2022 04:58 PM Modules accepted: Orders * Shabbir Natarajan MD - 10/11/2022 1:20 PM CDTAddended by: SHABBIR NATARAJAN on: 10/23/2022 04:43 PM Modules accepted: Orders * Shabbir Natarajan MD - 10/11/2022 1:20 PM CDTSummary: New patient notes Images from the original note were not included. ANNUAL PHYSICAL NOTES Encounter Date: 10/11/2022 Chief Complaint: 42-year-old female presents for Physical, Allergies, and Skin Problem The patient is being seen for a health maintenance evaluation and to discuss her concerns about uncontrolled allergies and a rash that appears in the groin intermittently. Patient without any significant past medical history and not on any long-term medications. She has not had a provider in many years. Her last provider was in [place]. She relocated to the [facility] about 2 years ago with herfamily. She currently is with her and daughter. Currently patient concerned about her uncontrolled allergies. She is using Jennifer gadd-vyu-atoxmhp and still struggling to control his symptoms. Notes ongoing congestion with postnasal drainage. No recent respiratory infections. She is interested in alternative medications to help with his symptoms. She is also concerned about having breakouts of infected hair follicles mainly on the left side. She has been using yyze-qev-phbzgnt medications which she is unsure of the name of without any significant improvement. She would like a prescription medication to help with her symptoms. Not a hypertensive or diabetic. She exercises regularly. Non-smoker. General Health: good Dental Health: Sees dentist regularly Vision Health: No vision correction Hearing Health: No hearing problems Immunizations Needed: Tdap and COVID Weight: Overweight Body mass index is 29.02 kg/m??. Physical Activity: Excersises regularly and Acitve lifestyle Cervical Cancer Screening: due Breast Cancer Screening: due and patient would like it ordered; her last mammogram was normal and done in [place] Colorectal Cancer Screening: None Metabolic Screening: Patient needs to be screened today. HCV Screening: done PHQ-9 Screening Score: PHQ-9: 10/11/2022 2:16 PM PHQ2/PHQ 9 DEPRESSION SCREEN QUESTIONAIRE Little interest or pleasure in doing things Several days Feeling down, depressed, or hopeless Several days Patient Health Questionnaire-2 Score 2 How difficult have these problems made it for you to do your work, take care of things at home, or get along with other people? Not difficult at all JASEN-7 (Generalized Anxiety Disorder) Screening 10/11/2022 1:20 PM JASEN-7 Feeling nervous, anxious and on edge 1 [...] at all Smoking Status: History Smoking Status ??? Never Smokeless Tobacco ??? Never Patient does not meet criteria for Low Dose CT screening Sleep Apnea Risk Factors: None Review of Systems Constitutional: Negative for chills, diaphoresis, fever, malaise/fatigue and weight loss. HENT: Negative. Eyes: Negative. Respiratory: Negative. Cardiovascular: Negative for chest pain, palpitations, orthopnea, claudication, leg swelling and PND. Gastrointestinal: Negative. Genitourinary: Negative. Musculoskeletal: Negative. Skin: Positive for rash. Negative for itching. Neurological: Negative. Endo/Heme/Allergies: Positive for environmental allergies. Negative for polydipsia. Does not bruise/bleed easily. There is no problem list on file for this patient. History reviewed. No pertinent past medical history. Past Surgical History: Procedure Laterality Date ??? SECTION Family History Problem Relation Name Age of Onset ??? No Known Problems Mother ??? No Known Problems Father ??? Cancer Paternal Grandmother Social History Socioeconomic History ??? Marital status: Spouse name: Not on file ??? Number of children: Not on file ??? Years of education: Not on file ??? Highest education level: Not on file Occupational History ??? Not on file Tobacco Use ??? Smoking status: Never ??? Smokeless tobacco: Never ??? Tobacco comments: Counseled by Dr Natarajan. Vaping Use ??? Vaping Use: Never used Substance and Sexual Activity ??? Alcohol use: Never ??? Drug use: Never ??? Sexual activity: Yes Partners: Male Other Topics Concern ??? Not on file Social History Narrative ??? Not on file Social Determinants of Health Financial Resource Strain: Not on file Food Insecurity: Not on file Transportation Needs: Not on file Physical Activity: Not on file Stress: Not on file Social Connections: Not on file Intimate Partner Violence: Not on file Housing Stability: Not on file There is no immunization history for the selected administration types on file for this patient. Current Outpatient Medications Medication Sig Dispense Refill ??? azelastine (ASTELIN) 0.1 % nasal spray 1 spray by Nasal route 2 (two) times daily. Use in each nostril as directed 30 mL 5 ??? fluticasone propionate (FLONASE) 50 MCG/ACT nasal spray 2 sprays by Nasal route daily. 16 g 5 ??? mupirocin (BACTROBAN) 2 % ointment Apply topically daily. Use daily as needed. 30 g 1 No current facility-administered medications for this visit. No current outpatient medications on file prior to visit. No current facility-administered medications on file prior to visit. No Known Allergies Objective: Filed Vitals: 10/11/22 1340 BP: 139/82 Pulse: 64 Resp: 18 Temp: 97.7 ??F (36.5 ??C) TempSrc: Temporal SpO2: 100% Weight: 79.1 kg (174 lb 6.4 oz) Height: 5' 5 (1.651 m) Physical Exam Vitals and nursing note reviewed. Constitutional: Appearance: Normal appearance. HENT: Head: Normocephalic and atraumatic. Right Ear: Tympanic membrane, ear canal and external ear normal. There is no impacted cerumen. Left Ear: Tympanic membrane, ear canal and external ear normal. There is no impacted cerumen. Nose: Nose normal. No congestion. Mouth/Throat: Mouth: Mucous membranes are moist. Pharynx: Oropharynx is clear. Eyes: General: No scleral icterus. Right eye: No discharge. Left eye: No discharge. Extraocular Movements: Extraocular movements intact. Conjunctiva/sclera: Conjunctivae normal. Pupils: Pupils are equal, round, and reactive to light. Neck: Vascular: No carotid bruit. Cardiovascular: Rate and Rhythm: Normal rate and regular rhythm. Pulses: Normal pulses. Heart sounds: Normal heart sounds. No murmur heard. Pulmonary: Effort: Pulmonary effort is normal. No respiratory distress. Breath sounds: Normal breath sounds. No stridor. No wheezing, rhonchi or rales. Chest: Chest wall: No tenderness. Abdominal: General: Abdomen is flat. Bowel sounds are normal. There is no [...] Findings: No bruising, erythema, lesion or rash. Comments: In the presence of a sales operations lead Alanna Montoya, the left groin area was examined with the patient in a supine position. Patient did show me where exactly the rash tends to recur. No active rash orlesions of folliculitis at this time. Neurological: General: No focal deficit present. Mental Status: She is alert and oriented to person, place, and time. Cranial Nerves: No cranial nerve deficit. Sensory: No sensory deficit. Motor: No weakness. Coordination: Coordination normal. Gait: Gait normal. Deep Tendon Reflexes: Reflexes normal. Psychiatric: Mood and Affect: Mood normal. Behavior: Behavior normal. Thought Content: Thought content normal. Judgment: Judgment normal. Assessment & Plan: Nicci was seen today for physical, allergies and skin problem. Diagnoses and all orders for this visit: Annual physical exam - Patient past medical, surgical, family history and social history updated. Allergies, immunizations and medications updated. Also did discuss healthy lifestyle including exercising, dietary changes and safe sexual practices as well as safe habits common to patient age group including wearing seat belt when transporting in a vehicle and limiting alcohol and avoiding smoking/second hand smoking. Patient will set up [employer]. Patient will fax over any remaining outside records that would be relevant to care provided. - LIPID PANEL; Future - TSH W/REFLEX; Future - HEMOGLOBIN, GLYCOSYLATED; Future - COMPREHENSIVE METABOLIC PANEL; Future - CBC W/DIFF AUTOMATED; Future - URINALYSIS; Future Encounter for medical examination to establish care - LIPID PANEL; Future - TSH W/REFLEX; Future - HEMOGLOBIN, GLYCOSYLATED; Future - COMPREHENSIVE METABOLIC PANEL; Future - CBC W/DIFF AUTOMATED; Future - URINALYSIS; Future General medical exam - Patient past medical, surgical, family history and social history updated. Allergies, immunizations and medications updated. Also did discuss healthy lifestyle including exercising, dietary changes and safe sexual practices as well as safe habits common to patient age group including wearing seat belt when transporting in a vehicle and limiting alcohol and avoiding smoking/second hand smoking. Patient will set up [employer]. Patient will fax over any remaining outside records that would be relevant to care provided. - LIPID PANEL; Future - TSH W/REFLEX; Future - HEMOGLOBIN, GLYCOSYLATED; Future - COMPREHENSIVE METABOLIC PANEL; Future - CBC W/DIFF AUTOMATED; Future Screening for diabetes mellitus - HEMOGLOBIN, GLYCOSYLATED; Future Screening for hyperlipidemia - LIPID PANEL; Future Screening for hypothyroidism - TSH W/REFLEX; Future Encounter for hepatitis C screening test for low risk patient - HEPATITIS B CORE ANTIBODY; Future Environmental and seasonal allergies - fluticasone propionate (FLONASE) 50 MCG/ACT nasal spray; 2 sprays by Nasal route daily. - azelastine (ASTELIN) 0.1 % nasal spray; 1 spray by Nasal route 2 (two) times daily. Use in each nostril as directed Need for diiigeyeau-qepouvk-iqyryeqcj (Tdap) vaccine - Cancel: [02696] Adacel (Tdap) due to unavailability Encounter for screening mammogram for malignant neoplasm of breast - MG SCREENING W ROYER KIMBERLY DIGI Folliculitis - mupirocin (BACTROBAN) 2 % ointment; Apply topically daily. Use daily as needed. I personally spent a total of 50 minutes on the day of the encounter. This includes rofn-oq-mrxb and fyz-ahwc-bx-face time I provided on the day of the encounter & excludes time spent performing separately reportable services. DRAGON: This dictation was at least in part performed using Dragonfly List and there may be some inherent flaws in this washer blanket due to the nature of this program. MD Shabbir SANHCEZ MD Internal Medicine [facility] Medical [facility]. documented in this encounter Plan of Treatment Upcoming Encounters Date Type Department Care Team (Late st Contact Info) Description 10/22/2024 7:20 AM CDT Office Visit [facility] Multispecialty Care - [place] [address] [address] [place] [address] Shabbir Natarajan MD [address] [place] [address] [address] [place] [address] Scheduled Orders Name Type Priority Associated Diagnoses Orde r Schedule MG SCREENING W ROYER KIMBERLY DIGI MAMMO Routine Encounter for screening mammogram for malignant neoplasm of breast Ordered: 10/11/2022 documented as of this encounter Procedures Procedure Name Priority Date/Time Associated Diagnosis Comments HEPATITIS C ANTIBODY Routine 10/21/2022 4:43 PM CDT Encounter for hepatitis C screening test for low risk patient VENIPUNC ARM DRAW Routine 10/12/2022 4:5 8 PM CDT Annual physical exam Encounter for medical examination to establish care General medical exam documented in this encounter Results * HEPATITIS C ANTIBODY ([facility] ONLY) (10/21/2022 4:43 PM CDT) HEPATITIS C AB NON-REACTI VE NON-REACT BEATRIZ 10/23/2022 8:45 PM CDT [facility] Comment: ANTIBODIES TO HCV NOT DETECTED. DOES NOT EXCLUDE THE POSSIBILITY OF EXPOSURE TO HCV. 10/21/2022 4:43 PM CDT Shabbir Natarajan MD LABORATORY Final Result [facility] [address] [place] [address], [place] [phone] [id number] * (ABNORMAL) LIPID PANEL (10/21/2022 8:54 AM CDT) Pathologist [facility] CHOLESTEROL 195 <200 MG/DL 10/21/2022 4:10 PM CDT [facility] TRIGLYCERIDES 50 <150 MG/DL 10/21/2022 4:10 PM CDT [facility] HDL 65 >40 MG/DL 10/21/2022 4:10 PM CDT [facility] LDL-C 120(H) <100 MG/DL 10/21/2022 4:10 PM CDT [facility] VLDL CALCULATION 10 5 - 28 MG/DL 10/21/2022 4:10 PM CDT [facility] CHOL/HDL RATIO 3.0 0.0 - 4.0 10/21/2022 4:10 PM CDT [facility] LDL/HDL 1.8 0.41 - 2.13 10/21/2022 4:10 PM CDT [facility] NON HDL CHOLESTEROL 130 <140 MG/DL 10/21/2022 4:10 PM CDT [facility] 10/21/2022 8:54 AM CDT us Shabbir Natarajan MD LABORATORY Final Result [facility] [address] [place] [address], [place] [phone] * HEPATITIS B CORE ANTIBODY (10/21/2022 8:54 AM CDT) HEP B CORE TOTAL AB NON-REACTI VE NON-REACTI VE 10/21/2022 10:03 PM CDT [facility] Comment:IgM and IgG anti HBc not detected. 10/21/2022 8:54 AM CDT Shabbir Natarajan MD LABORATORY Final Result [facility] [address] [place] [address], [place] [phone] [id number] * HEMOGLOBIN, GLYCOSYLATED (10/21/2022 8:54 AM CDT) HGB A1C 5.2 4.5 - 6.2 % 10/21/2022 4:08 PM CDT [facility] ESTIMATED AVG GLUCOSE 103 74 - 106 MG/DL 10/21/2022 4:08 PM CDT [facility] 10/21/2022 8:54 AM CDT Shabbir Natarajan MD LABORATORY Final Result Performing Organization Address City/[facility] Co de Phone Number [facility] [address] [place] [address], [place] [phone] * (ABNORMAL) COMPREHENSIVE METABOLIC PANEL (10/21/2022 8:54 AM CDT) SODIUM S/P/B 138 136 - 145 MMOL/L 10/21/2022 4:10 PM CDT [facility] POTASSIUM S/P/B 5.5(H) 3.5 - 5.1 MMOL/L 10/21/2022 4:10 PM CDT [facility] CHLORIDE S/P/B 105 98 - 107 MMOL/L 10/21/2022 4:10 PM CDT [facility] CO2 28.8 21 - 32 MMOL/L 10/21/2022 4:10 PM CDT [facility] GLUCOSE 91 70 - 99 MG/DL 10/21/2022 4:10 PM [facility]T [facility] BUN 12 7 - 18 MG/DL 10/21/2022 4:10 PM T [facility] CREATININE S/P/B 0.66 0.55 - 1.02 MG/DL 10/21/2022 4:10 PM T [facility] CALCIUM S/P/B 9.0 8.4 - 10.5 MG/DL 10/21/2022 4:10 PM CDT [facility] BILIRUBIN TOTAL S/P/B 0.7 0.2 - 1.0 MG/DL 10/21/2022 4:10 PM T [facility] ALKALINE PHOSPHATASE S/P/B 57 37 - 98 U/L 10/21/2022 4:10 PM T [facility] AST 14(L) 15 - 37 U/L 10/21/2022 4:10 PM CDT [facility] ALT 19 14 - 59 U/L 10/21/2022 4:10 PM T [facility] TOTAL PROTEIN S/P/B 7.1 6.4 - 8.2 G/DL 10/21/2022 4:10 PM T [facility] ALBUMIN S/P/B 3.6 3.4 - 5.0 G/DL 10/21/2022 4:10 PM T [facility] ANION GAP 4.2(L) 5 - 15 MMOL/L 10/21/2022 4:10 PM CDT [facility] Comment:REFERENCE RANGE NOT ESTABLISHED OSMOLALITY (CALC) 285 MOSM/KG 023 4:10 PM T [facility] Comment:REFERENCE RANGE NOT ESTABLISHED GFR ESTIMATE >90 >90 ML/MIN/1. 73 M2 10/21/2022 4:10 PM T [facility] GFR NOTES GFR REFERENCE S: 10/21/2022 4:10 PM CDT [facility] Comment: THE ESTIMATED GFR IS CALCULATED USING [...] ml/min/1.73 m2 G5,KIDNEY FAILURE: <15 ml/min/1.73 m2 10/21/2022 8:54 AM CDT Shabbir Natarajan MD LABORATORY Final Result [facility] [address] [place] [address], * (ABNORMAL) CBC W/DIFF AUTOMATED (10/21/2022 8:54 AM CDT) WBC 7.77 4.00 - 10.80 x10'3/uL 10/21/2022 3:20 PM CDT [facility] RBC 4.24 4.10 - 5.40 x10'6/uL 10/21/2022 3:20 PM CDT [facility] HGB 12.8 12.0 - 16.0 G/DL 10/21/2022 3:20 PM CDT [facility] HCT 40.5 36.0 - 47.0 % 10/21/2022 3:20 PM CDT [facility] MCV 95.5 78.0 - 100.0 FL 10/21/2022 3:20 PM CDT [facility] MCH 30.2 27.0 - 31.0 PG 10/21/2022 3:20 PM CDT [facility] MCHC 31.6(L) 33.0 - 36.0 G/DL 10/21/2022 3:20 PM CDT [facility] RDW 13.8 11.5 - 14.5 % 10/21/2022 3:20 PM CDT [facility] 444(H) 150 - 350 x10'3/uL 10/21/2022 3:20 PM CDT [facility] MPV 10.4 7.4 - 10.4 FL 10/21/2022 3:20 PM CDT [facility] DIFFERENTIAL TYPE AUTOMATED DIFFERENTIAL 10/21/2022 3:20 PM CDT [facility] NEUTROPHILS % 49.6 % 10/21/2022 3:20 PM CDT [facility] LYMPHOCYTES % 40.9 % 10/21/2022 3:20 PM CDT [facility] MONOCYTES % 8.1 % 10/21/2022 3:20 PM CDT [facility] EOSINOPHIL[facility] % 0.9 % 10/21/2022 3:20 PM CDT [facility] BASOPHILS % 0.5 % 10/21/2022 3:20 PM CDT [facility] IMMATURE GRANS % 0.0 % 10/21/2022 3:20 PM CDT [facility] ABS. NEUTROPHILS 3.85 1.60 - 8.30 x10'3/uL 10/21/2022 3:20 PM CDT [facility] ABS. LYMPHOCYTES 3.18 0.80 - 4.70 x10'3/uL 10/21/2022 3:20 PM CDT [facility] ABS. MONOCYTES 0.63 0.00 - 1.50 x10'3/uL 10/21/2022 3:20 PM CDT [facility] ABS. EOSINOPHILS 0.07 0.00 - 0.40 x10'3/uL 10/21/2022 3:20 PM CDT [facility] ABS. BASOPHILS 0.04 0.00 - 0.20 x10'3/uL 10/21/2022 3:20 PM CDT [facility] ABS. IMMATURE GRANULOCYTES 0.00 0.00 - 0.03 x10'3/uL 10/21/2022 3:20 PM CDT [facility] 10/21/2022 8:54 AM CDT us Shabibr Natarajan MD LABORATORY Final Result [address] [address], [place] [phone] * TSH W/REFLEX (10/21/2022 8:54 AM CDT) TSH 1.461 0.358 - 3.740 uIU/ML 10/21/2022 4:45 PM CDT [facility] 10/21/2022 8:54 AM CDT us Shabbir Natarajan MD LABORATORY Final Result [address] [place] [address], [place] [phone] documented in this encounter Visit Diagnoses Diagnosis Annual physical exam- Primary Routine general medical examination at a health care facility Encounter for medical examination to establish care General medical exam Unspecified general medical examination Screening for diabetes mellitus Screening for hyperlipidemia Screening for lipoid disorders Screening for hypothyroidism Screening for thyroid disorder Encounter for hepatitis C screening test for low risk patient Environmental and seasonal allergies Need for ycnybwaums-xalugav-erpdbwmdd (Tdap) vaccine Need for prophylactic vaccination with combined jesalpgrmi-pxqdfsv-gxdgeecpf (DTP) vaccine Encounter for screening mammogram for malignant neoplasm of breast Other screening mammogram Folliculitis Other specified disease of hair and hair follicles documented in this encounter Care Teams Medical And Health Services Manager Relationship Specialty Start Date End Date Shabbir Natarajan MD [address] [address] PCP - General INTERNAL MEDICINE 09/05/22 documented as of this encounter
--- OUTSIDE RECORDS SUMMARY | 2024-05-13 22:42 | XMS_ITS | Encounter Summary ---
Author Organization [facility] Address [address] [place] [address]. [place] [address] [place] [address] Care Team Providers Care Assistant Sales Center Manager Name Role Phone Shabbir Natarajan MD Primary Care Provider [phone] Encounter Details Date Type Department Care Team (Latest Contact Info) Description 10/21/2022 - 10/21/2022 11:59 PM CDT Hospital Encounter [facility] [address] [place] [address] Shabbir Natarajan MD [address] [facility] [address] [place] [address] Discharge Disposition: Home or Self Care (Routine Discharge) Social History Tobacco Use Types Packs/Day Years [...] AM CDT documented as of this encounter Medications at Time of Discharge azelastine (ASTELIN) 0.1 % nasal sprayIndications :Environmental and seasonal allergies 1 spray by Nasal route 2 (two) times daily. Use in each nostril as directed 30 mL 5 10/11/2022 3 fluticasone propionate (FLONASE) 50 MCG/ACT nasal sprayIndications :Environmental and seasonal allergies 2 sprays by Nasal route daily. 16 g 5 10/11/2022 3 mupirocin (BACTROBAN) 2 % ointmentIndicati ons:Folliculitis Apply topically daily. Use daily as needed. 30 g 1 10/11/2022 4 documented as of this encounter Plan of Treatment Upcoming Encounters Date Type Department Care Team (Late st Contact Info) Description 10/22/2024 7:20 AM CDT Office Visit [facility] Multispecialty Care - [place] [address] [address] [address] [place] [address] Shabbir Natarajan MD [address] [place] [address] documented as of this encounter Visit Diagnoses Not on filedocumented in this encounter Care Teams Assistant Sales Center Manager Relationship Specialty Start Date End Date Shabbir Natarajan MD [address] [place] [address] PCP - General INTERNAL MEDICINE 09/05/22 documented as of this encounter
--- OUTSIDE RECORDS SUMMARY | 2024-05-13 22:42 | XMS_ITS | Encounter Summary ---
Author Organization [facility] - [facility] Address [address] [place] [address]. [place], [place] [address] [place] [address] Care Team Providers Care Transport Manager Name Role Phone Shabbir Natarajan MD Primary Care Provider [phone] Reason for Visit * Reason Comments Lab Draw Encounter Details Date Type Department Care Team (Late st Contact Info) Description 11/23/2022 8:30 AM CDT Allied Health/Nurse Visit [facility] - [place] [address] [place] [address] [address] [place], [place] [phone] [place] [address] [place] [address] [address] [place], [place] [id number] Lab Draw Social History Tobacco Use Types [...] Notes * Maria Luisa Chun MA - 11/23/2022 8:30 AM CDT Pt presents for lab draw. Venipunture was performed w/o difficulty in the left AC documented in this encounter Plan of Treatment Upcoming Encounters Date Type Department Care Team (Late st Contact Info) Description 10/22/2024 7:20 AM CDT Office Visit [facility] - [place] [address] [address] [place] [address] Shabbir Natarajan MD [address] [place] [address] documented as of this encounter Procedures Procedure Name Priority Date/Time Associated Diagnosis Comments VENIPUNC ARM DRAW Routine 11/23/2022 8:31 AM CDT Serum potassium elevated documented in this encounter Visit Diagnoses Diagnosis Serum potassium elevated- Primary Hyperpotassemia documented in this encounter Care Teams Transport Manager Relationship Specialty Start Date End Date Shabbir Natarajan MD [address] [place] [address] PCP - General INTERNAL MEDICINE 09/05/22 documented as of this encounter
--- OUTSIDE RECORDS SUMMARY | 2024-05-13 22:42 | XMS_ITS | Encounter Summary ---
Author Organization [facility] - [facility] Address [address] [place] [address]. [place], [place] [address] [place] [address] Care Team Providers Care Hydro Pneumatic Tester Name Role Phone Shabbir Natarajan MD Primary Care Provider [phone] Reason for Visit * Reason Comments Allied Health Visit Lab draw Encounter Details Date Type Department Care Team (Latest Contact Info) Description 10/21/2022 9:00 AM CDT Allied Health/Nurse Visit [facility] Medical [facility] Mult[facility]pecialty Care - [place] [address] [place] [address] [address] [place], [place] [address] [place] [address] [place] [address] [address] [place], [place] [id number] Allied Health Visit (Lab draw) Social History Tobacco Use Types Packs/Day Years [...] AM CDT documented as of this encounter Progress Notes * Alanna Tamayo MA - 10/21/2022 9:00 AM CDT Lab draw documented in this encounter Plan of Treatment Upcoming Encounters Date Type Department Care Team (Late st Contact Info) Description 10/22/2024 7:20 AM CDT Office Visit [facility] Medical [facility] - [place] [address] [facility] [address] [place] [address] Shabbir Natarajan MD [address] [facility] [address] [place], [place] [address] documented as of this encounter Procedures Procedure Name Priority Date/Time Associated Diagnosis Comments TSH W/REFLEX Routine 10/21/2022 8:54 AM CDT Annual physical exam Encounter for medical examination to establish care General medical exam Screening for hypothyroidism HEMOGLOBIN, GLYCOSYLATED Routine 10/21/2022 8:54 AM CDT Annual physical exam Encounter for medical examination to establish care General medical exam Screening for diabetes mellitus COMPREHENSIVE METABOLIC PANEL Routine 10/21/2022 8:54 AM CDT Annual physical exam Encounter for medical examination to establish care General medical exam LIPID PANEL Routine 10/21/2022 8:54 AM CDT Annual physical exam Encounter for medical examination to establish care General medical exam Screening for hyperlipidemia HEPATITIS B CORE ANTIBODY Routine 10/21/2022 8:54 AM CDT Encounter for hepatitis C screening test for low risk patient CBC W/DIFF AUTOMATED Routine 10/21/2022 8:54 AM CDT Annual physical exam Encounter for medical examination to establish care General medical exam VENIPUNC ARM DRAW Routine 10/21/2022 8:4 9 AM CDT Annual physical exam documented in this encounter Results * TSH W/REFLEX (10/21/2022 8:54 AM CDT) TSH 1.461 0.358 - 3.740 uIU/ML 10/21/2022 4:45 PM CDT [facility] 10/21/2022 8:54 AM CDT Shabbir Natarajan MD LABORATORY Final Result [facility] [address] [place] [address], * (ABNORMAL) CBC W/DIFF AUTOMATED (10/21/2022 8:54 AM CDT) WBC 7.77 4.00 - 10.80 x10'3/uL 10/21/2022 3:20 PM CDT [facility] RBC 4.24 4.10 - 5.40 x10'6/uL 10/21/2022 3:20 PM CDT [facility] HGB 12.8 12.0 - 16.0 G/DL 10/21/2022 3:20 PM CDT [facility] HCT 40.5 36.0 - 47.0 % 10/21/2022 3:20 PM CDT [facility] MCV 95.5 78.0 - 100.0 FL 10/21/2022 3:20 PM CDT [facility] MCH 30.2 27.0 - 31.0 PG 10/21/2022 3:20 PM CDT [facility] MCHC 31.6(L) 33.0 - 36.0 G/DL 10/21/2022 3:20 PM CDT [facility] RDW 13.8 11.5 - 14.5 % 10/21/2022 3:20 PM CDT [facility] PLT 444(H) 150 - 350 x10'3/uL 10/21/2022 3:20 PM CDT [facility] MPV 10.4 7.4 - 10.4 FL 10/21/2022 3:20 PM CDT -[facility] DIFFERENTIAL TYPE AUTOMATED DIFFERENTIAL 10/21/2022 3:20 PM CDT [facility] NEUTROPHILS % 49.6 % 10/21/2022 3:20 PM CDT [facility] LYMPHOCYTES % 40.9 % 10/21/2022 3:20 PM CDT -[facility] MONOCYTES % 8.1 % 10/21/2022 3:20 PM CDT -[facility] EOSINOPHILS % 0.9 % 10/21/2022 3:20 PM CDT [facility] BASOPHILS % 0.5 % 10/21/2022 3:20 PM CDT [facility] IMMATURE GRANS % 0.0 % 10/21/2022 3:20 PM CDT -[facility] ABS. NEUTROPHILS 3.85 1.60 - 8.30 x10'3/uL 10/21/2022 3:20 PM CDT -[facility] ABS. LYMPHOCYTES 3.18 0.80 - 4.70 x10'3/uL 10/21/2022 3:20 PM CDT -[facility] ABS. MONOCYTES 0.63 0.00 - 1.50 x10'3/uL 10/21/2022 3:20 PM CDT -[facility] ABS. EOSINOPHILS 0.07 0.00 - 0.40 x10'3/uL 10/21/2022 3:20 PM CDT [facility] ABS. BASOPHILS 0.04 0.00 - 0.20 x10'3/uL 10/21/2022 3:20 PM CDT [facility] ABS. IMMATURE GRANULOCYTES 0.00 0.00 - 0.03 x10'3/uL 10/21/2022 3:20 PM CDT [facility] 10/21/2022 8:54 AM CDT Shabbir Natarajan MD LABORATORY Final Result -[facility] [address] [facility] [place] [address], [place] [phone] * (ABNORMAL) COMPREHENSIVE METABOLIC PANEL (10/21/2022 8:54 AM CDT) [facility] SODIUM S/P/B 138 136 - 145 MMOL/L 10/21/2022 4:10 PM CDT -[facility] POTASSIUM S/P/B 5.5(H) 3.5 - 5.1 MMOL/L 10/21/2022 4:10 PM CDT [facility] CHLORIDE S/P/B 105 98 - 107 MMOL/L 10/21/2022 4:10 PM CDT -[facility] CO2 28.8 21 - 32 MMOL/L 10/21/2022 4:10 PM CDT -[facility] GLUCOSE 91 70 - 99 MG/DL 10/21/2022 4:10 PM CDT -[facility] BUN 12 7 - 18 MG/DL 10/21/2022 4:10 PM CDT -[facility] CREATININE S/P/B 0.66 0.55 - 1.02 MG/DL 10/21/2022 4:10 PM CDT [facility] CALCIUM S/P/B 9.0 8.4 - 10.5 MG/DL 10/21/2022 4:10 PM CDT -[facility] BILIRUBIN TOTAL S/P/B 0.7 0.2 - 1.0 MG/DL 10/21/2022 4:10 PM CDT [facility] ALKALINE PHOSPHATASE S/P/B 57 37 - 98 U/L 10/21/2022 4:10 PM CDT -[facility] AST 14(L) 15 - 37 U/L 10/21/2022 4:10 PM CDT [facility] ALT 19 14 - 59 U/L 10/21/2022 4:10 PM CDT [facility] TOTAL PROTEIN S/P/B 7.1 6.4 - 8.2 G/DL 10/21/2022 4:10 PM T [facility] ALBUMIN S/P/B 3.6 3.4 - 5.0 G/DL 10/21/2022 4:10 PM CDT [facility] ANION GAP 4.2(L) 5 - 15 MMOL/L 10/21/2022 4:10 PM CDT [facility] Comment:REFERENCE RANGE NOT ESTABLISHED OSMOLALITY (CALC) 285 MOSM/KG 023 4:10 PM T [facility] Comment:REFERENCE RANGE NOT ESTABLISHED GFR ESTIMATE >90 >90 ML/MIN/1. 73 M2 10/21/2022 4:10 PM T [facility] GFR NOTES GFR REFERENCE S: 10/21/2022 4:10 PM T [facility] Comment: THE ESTIMATED GFR IS CALCULATED [...] CDT Shabbir Natarajan MD LABORATORY Final Result [facility] [address] [place] [address], * HEMOGLOBIN, GLYCOSYLATED (10/21/2022 8:54 AM CDT) HGB A1C 5.2 4.5 - 6.2 % 10/21/2022 4:08 PM CDT [facility] ESTIMATED AVG GLUCOSE 103 74 - 106 MG/DL 10/21/2022 4:08 PM CDT [facility] 10/21/2022 8:54 AM CDT Shabbir Natarajan MD LABORATORY Final Result [facility] [address] [place] [address], * HEPATITIS B CORE ANTIBODY (10/21/2022 8:54 AM CDT) Pathologist [facility] HEP B CORE TOTAL AB NON-REACTI VE NON-REACTI VE 10/21/2022 10:03 PM CDT [facility] Comment:IgM and IgG anti HBc not detected. 10/21/2022 8:54 AM CDT Shabbir Natarajan MD LABORATORY Final Result [facility] [address] [place] [address], [place] [phone] * (ABNORMAL) LIPID PANEL (10/21/2022 8:54 AM CDT) Pathologist [facility] CHOLESTEROL 195 <200 MG/DL 10/21/2022 4:10 PM CDT [facility] TRIGLYCERIDES 50 <150 MG/DL 10/21/2022 4:10 PM CDT [facility] HDL 65 >40 MG/DL 10/21/2022 4:10 PM CDT [facility] LDL-C 120(H) <100 MG/DL 10/21/2022 4:10 PM CDT -[facility] VLDL CALCULATION 10 5 - 28 MG/DL 10/21/2022 4:10 PM CDT [facility] CHOL/HDL RATIO 3.0 0.0 - 4.0 10/21/2022 4:10 PM CDT [facility] LDL/HDL 1.8 0.41 - 2.13 10/21/2022 4:10 PM CDT [facility] NON HDL CHOLESTEROL 130 <140 MG/DL 10/21/2022 4:10 PM CDT [facility] 10/21/2022 8:54 AM CDT Shabbir Natarajan MD LABORATORY Final Result [facility] [address] [place] [address], documented in this encounter Visit Diagnoses Diagnosis Annual physical exam- Primary Routine general medical examination at a health care facility Encounter for medical examination to establish care General medical exam Unspecified general medical examination Screening for hyperlipidemia Screening for lipoid disorders Encounter for hepatitis C screening test for low risk patient Screening for diabetes mellitus Screening for hypothyroidism Screening for thyroid disorder documented in this encounter Care Teams Hydro Pneumatic Tester Relationship Specialty Start Date End Date Shabbir Natarajan MD [address] [facility] [address] [place] [address] PCP - General INTERNAL MEDICINE 09/05/22 documented as of this encounter
--- OUTSIDE RECORDS SUMMARY | 2024-05-13 22:42 | XMS_ITS | Encounter Summary ---
Author Organization [facility] - [facility] Address [facility]. [place], [place] [address] [place] [address] Care Team Providers Care Assistant Professor Of Music Name Role Phone Shabbir Natarajan MD Primary Care Provider [phone] Encounter Details Date Type Department Care Team (Latest Contact Info) Description 10/11/2022 Travel Social History Tobacco Use Types Packs/Day [...] suspected to have Coronavirus/COVID-19? No / Unsure 10/11/2022 12:55 PM CDT documented as of this encounter Plan of Treatment Upcoming Encounters Date Type Department Care Team (Late st Contact Info) Description 10/22/2024 7:20 AM CDT Office Visit [facility] Medical Group Multispecialty Care - [address] [place], [place] [address] Shabbir Natarajan MD [address] [place] [address] [address] [place], [place] [address] documented as of this encounter Visit Diagnoses Not on filedocumented in this encounter Care Teams Assistant Professor Of Music Relationship Specialty Start Date End Date Shabbir Natarajan MD [address] [address] PCP - General INTERNAL MEDICINE 09/05/22 documented as of this encounter
--- OUTSIDE RECORDS SUMMARY | 2024-05-13 22:42 | XMS_ITS | Encounter Summary ---
Author Organization [facility] Address [address] [place] [address]. [place], [place] [address] [place] [address] Care Team Providers Care Shuttle Inspector Name Role Phone Shabbir Natarajan MD Primary Care Provider [phone] Encounter Details Date Type Department Care Team (Latest Contact Info) Description 10/18/2022 9:11 AM CDT - 10/18/2022 11:59 PM CDT Hospital [facility] [address] [place] [address] Shabbir Natarajan MD [address] [facility] [address] [place] [address] Discharge Disposition: Home or Self [...] Description 10/22/2024 7:20 AM CDT Office Visit [facility] Medical Group Multispecialty Care - [place] [address] [address] [place] [address] Shabbir Natarajan MD [address] [place] [address] documented as of this encounter Procedures Procedure Name Priority Date/Time Associated Diagnosis Comments HUMAN PAPILLOMAVIRUS, HIGH-RISK TYPES Routine 10/18/2022 12:00 PM CDT CYTOPATH CERV/VAG THIN LAYER Routine 10/18/2022 7:30 AM CDT documented in this encounter Results * HUMAN PAPILLOMAVIRUS, HIGH-RISK TYPES (10/18/2022 12:00 PM CDT) SPEC DESCRIPTION CERVICAL/END OCERVICAL 10/20/2022 8:05 AM CDT [facility] HPV DNA HIGH RISK NEGATIVE NEGATIVE 10/21/2022 1:25 PM CDT [facility] Comment:SEE CYTOLOGY REPORT 10/18/2022 12:0 0 PM CDT Shabbir Natarajan MD PATHOLOGY/CYTOLOGY ORDERABLES Fi nal Result Performing Organization Address [facility]/State/ZIP Co de Phone Number [facility] () [facility] [address] [place] [address], * Cytopath Cerv/Vag Thin Layer (10/18/2022 7:30 AM CDT) THIN PREP PAP ? [facility] ?[address] [facility] [address] ? Department of Pathology ? Pathology Report ? CERVICAL/VAGINAL PAP SMEAR REPORT Name: PASSONI, NICCI ? Age: 5 1980 (Age: 42) ? [facility] ?Collected Date: 10/18/2022 [facility] #: [id number] ?Date Received: 10/20/2022 Date Reported: 10/25/2022 Provider: [...] is not effective in detecting cervical adenocarcinoma. [facility] 10/18/2022 7:30 AM CDT 10/20/2022 7:30 AM CDT Comment:CERVICAL/ENDOCERVICA L us Shabbir Natarajan MD PATHOLOGY/CYTOLOGY ORDERABLES Fi nal Result [facility] [address] [place] [address], documented in this encounter Visit Diagnoses Not on filedocumented in this encounter Care Teams Shuttle Inspector Relationship Specialty Start Date End Date Shabbir Natarajan MD [address] [address] PCP - General INTERNAL MEDICINE 09/05/22 documented as of this encounter
--- OUTSIDE RECORDS SUMMARY | 2024-05-13 22:44 | XMS_ITS | Encounter Summary ---
Author Organization [facility] Address [address] [place] [address] Care Team Providers Care Welt Cutter Name Role Phone Unavailable Primary Care Provider Unavailabl e Encounter Details Date Type Department Care Team (Late st Contact Info) Description 04/01/2024 External Device Data [facility] ABSTRACTION Provider, Abstract NO ADDRESS ON FILE Social History Tobacco Use Types Packs/Day Years Used Date Smoking Tobacco: Never Assessed Sex and Gender Information Value Date Recorded Sex Assigned at Not on file Gender Identity Not on file Sexual Orientation Not on file documented as of this encounter Plan of Treatment Not on file documented as of this encounter Visit Diagnoses Not on filedocumented in this encounter
--- OUTSIDE RECORDS SUMMARY | 2024-05-13 22:44 | XMS_ITS | Encounter Summary ---
Author Organization [facility] Address [address] [facility] [place] [address] Care Team Providers Care Delicatessen Goods Stock Clerk Name Role Phone Unavailable Primary Care Provider Unavailabl e Encounter Details Date Type Department Care Team (Late st Contact Info) Description 03/27/2024 8:55 AM CDT Ancillary Procedure [facility] [address] [place] [phone] Yady Obrien, DO [address] [place] [address] Screening examination for pulmonary tuberculosis Social History Tobacco Use Types Packs/Day Years Used Date Smoking Tobacco: Never Assessed Sex and Gender Information Value Date Recorded Sex Assigned at Not on file Gender Identity Not on file Sexual Orientation Not on file documented as of this encounter Plan of Treatment Not on file documented as of this encounter Procedures Procedure Name Priority Date/Time Associated Diagnosis Comments XR CHEST PA AND LATERAL 2 VW Routine 03/27/2024 9:49 AM CDT Screening examination for pulmonary tuberculosis documented in this encounter Results * XR CHEST PA AND LATERAL 2 VW (03/27/2024 9:49 AM CDT) Anatomical Region Laterality Modality Chest Computed Radiogr aphy 03/27/2024 9:49 AM CDT Impressions 03/27/2024 10:06 AM CDT IMPRESSION: Normal study. Narrative 03/27/2024 10:06 AM CDT INDICATIOn: ??Assess for tuberculosis. The bony framework is unremarkable. The heart is normal in size. The lungs are clear. Procedure Note Pascual Kowalski MD - 03/27/2024 INDICATIOn: Assess for tuberculosis. The bony framework is unremarkable. The heart is normal in size. The lungs are clear. IMPRESSION: Normal study. Yady Obrien DO DIAGNOSTIC CINDY GING ORDERABLES documented in this encounter Visit Diagnoses Diagnosis Screening examination for pulmonary tuberculosis documented in this encounter
--- OUTSIDE RECORDS SUMMARY | 2024-05-13 22:44 | XMS_ITS | Clinical Summary ---
Author Organization [facility] Address [address] [place] [address] Care Team Providers Care Production Team Leader Name Role Phone Unavailable Primary Care Provider Unavailabl e Encounters Date Type Department Care Team Description 04/01/2024 External Device Data STL ABSTRACTION Provider, Abstract 03/27/2024 8:55 AM CDT Ancillary Procedure [facility] [address] [place] [address] Yady Obrien, Screening examination for pulmonary tuberculosis from Last 3 Months Social History Tobacco Use Types Packs/Day Years Used Date Smoking Tobacco: Never Assessed Sex and Gender Information Value Date Recorded Sex Assigned at Not on file Gender Identity Not on file Sexual Orientation Not on file Plan of Treatment Health Maintenance Due Date Last Done Comments Pre-Diabetes and Diabetes Screening 1980 HEPATITIS B VACCINES (1 of 3 - 19+ 3-dose series) 09/28/1998 BREAST CANCER SCREENING 04/06/2022 04/06/2021 INFLUENZA VACCINE (#1) 2023 CERVICAL CANCER SCREENING 10/18/2025 10/18/2022 DTAP/TDAP/TD VACCINES (2 - T d or Tdap) 09/09/2031 09/08/2021 HPV VACCINES Aged Out No longer eligi ble based on patient's age to complete this topic PNEUMOCOCCAL VACCINE 0-64 YEARS Aged Out No longer eligible based on patient's age to complete this topic Procedures Procedure Name Priority Date/Time Associated Diagnosis Comments XR CHEST PA AND LATERAL 2 VW Routine 03/27/2024 9:49 AM CDT Screening examination for pulmonary tuberculosis from Last 3 Months Results * XR CHEST PA AND LATERAL [...] Yady Obrien DO DIAGNOSTIC CINDY GING ORDERABLES from Last 3 Months
== END 2024-05-10 14:44 | disposition home or self-care (01) ==
LOC: ANHIMG 14:48
PROVIDERS: PCP Internal Medicine; Visit Provider Internal Medicine
DX: Z12.31 Encounter for screening mammogram for malignant neoplasm of breast (principal)
CPT/HCPCS: 77063; 77067

== ENCOUNTER 2025-05-12 14:40 | Outpatient (CLI) | payer BC, SELFPAY ==
--- NOTE | ~2025-05-12 | MM_ITS ---
EXAMINATION: screening [facility] BI w giselle INDICATION: Asymptomatic, referred for screening mammogram COMPARISON: 05/10/2024 TECHNIQUE: Digital Breast Tomosynthesis CC, MLO views of Both breasts were obtained with computer-aided detection to assist in interpretation of the study. FINDINGS: There are scattered areas of fibroglandular density. There is a group of microcalcifications associated with a focal asymmetry in the subareolar right breast. Elsewhere, there are no mammographic features of malignancy. IMPRESSION: 1. Right breast focal asymmetry associated with calcifications. 2. No evidence of malignancy in the Left breast. RECOMMENDATION: Right breast Diagnostic mammogram with true lateral, and appropriate magnification views and ultrasound. BI-RADS Category 0: Incomplete: Needs additional imaging evaluation. Reviewed, dictated and finalized at location A. BREAKER IMPRESSION: 1. Right breast focal asymmetry associated with calcifications. 2. No evidence of malignancy in the Left breast. RECOMMENDATION: Right breast Diagnostic mammogram with true lateral, and appropriate magnificat ion views and ultrasound. BI-RADS Category 0: Incomplete: Needs additional imaging evaluation.
--- OUTSIDE RECORDS SUMMARY | 2025-05-12 16:41 | XMS_ITS | Encounter Summary ---
Author Organization [facility] Address [facility] [place] [address] Care Team Providers Care Mangle Roller Name Role Phone Shabbir Natarajan MD Primary Care Provider [phone] Encounter Details Date Type Department Care Team (Late st Contact Info) Description 05/13/2024 Bleacherst Message Enc [facility] Medical Group Multispecialty Care - [place] [address] [place] [address] [address] [place], [place] [phone] Shabbir Natarajan MD [address] [facility] [address] [place], [place] [phone] Mammography Social History Tobacco Use Types Packs/Day Years Used Date Smoking Tobacco: Never Smokeless Tobacco: Never Comments:Counseled by Dr Stephany liao. Alcohol Use Standard Drinks/Week Comments Never 0 (1 standard drink = 0.6 oz pur e alcohol) PHQ-2 Answer Date Recorded Patient Health Questionnaire-2 Score 1 10/17/2023 Comments No Sex and Gender Information Value Date Recorded Sex Assigned at Female 10/22/2024 7:09 AM CDT Legal Sex Female 11:20 AM CDT Gender Identity Female 10/22/2024 7:09 AM CDT Sexual Orientation Not on file documented as of this encounter Plan of Treatment Upcoming Encounters Date Type Department Care Team (Latest Contact Info) Description 06/13/2025 11:53 AM [facility] Hospital Encounter [facility] [address] [place], [place] [phone] He Rogers MD [address] [facility] [address] [place] [address] 06/13/2025 11:53 AM [facility] - 06/13/2025 12:25 PM [facility] Surgery [facility] Surgery [address] [place] [address] He Rogers MD 3 [facility] [address] [place] [address] COLONOSCOPY SCREENING 10/06/2025 7:20 AM CDT Office Visit [facility] Medical Group Multispecialty Care [place] [address] [address] [place] [address] Shabbir Natarajan MD [facility] [address] [place] [address] Scheduled Procedures Name Priority Associated Diagnoses Date/Ti me COLONOSCOPY SCREENING Screening for colon cancer 06/13/2025 11:53 AM [facility] documented as of this encounter Visit Diagnoses Not on filedocumented in this encounter Care Teams Mangle Roller Relationship Specialty Start Date End Date Shabbir Natarajan MD [address] [place] [address] [address] [place] [address] PCP - General INTERNAL MEDICINE 09/05/22 documented as of this encounter
--- OUTSIDE RECORDS SUMMARY | 2025-05-12 16:41 | XMS_ITS | Encounter Summary ---
Author Organization [facility] Address Formerly [facility] [place] [address] Care Team Providers Care Media Services Coordinator Name Role Phone Shabbir Natarajan MD Primary Care Provider [phone] Encounter Details Date Type Department Care Team (Late st Contact Info) Description 05/01/2024 Familytict Message Enc [facility] Medical Group Multispecialty Care - [place] [address] [place] [address] [address] [place] [address] Shabbir Natarajan MD 1188 [facility] 157 [place], [place] [id number] Hair Loss Social History Tobacco Use Types [...] (Latest Contact Info) Description 06/13/2025 11:53 AM [facility] Hospital Encounter [facility] [address] [place], [place] [id number] He Rogers MD 3 [facility] [address] [place] [address] 06/13/2025 11:53 AM RAILROAD DISPATCHER - 06/13/2025 12:25 PM RAILROAD DISPATCHER Surgery [facility] Surgery [address] [place] [address] He Rogers MD 3 [facility] [address] [place] [address] COLONOSCOPY SCREENING 10/06/2025 7:20 AM CDT Office Visit [facility] Medical Group Multispecialty Care - [place] [address] [address] [place] [address] Shabbir Natarajan MD Critical access hospital8 [facility] [address] [place] [address] Scheduled Procedures Name Priority Associated Diagnoses Date/Ti me COLONOSCOPY SCREENING Screening for colon cancer 06/13/2025 11:53 AM RAILROAD DISPATCHER documented as of this encounter Visit Diagnoses Not on filedocumented in this encounter Care Teams Media Services Coordinator Relationship Specialty Start Date End Date Shabbir Natarajan MD [address] [place] [address] 157 [place] [address] PCP - General INTERNAL MEDICINE 09/05/22 documented as of this encounter
--- OUTSIDE RECORDS SUMMARY | 2025-05-12 16:41 | XMS_ITS | Encounter Summary ---
Author Organization [facility] Address Formerly [facility] [place] [address] Care Team Providers Care Office Helper Clerical Name Role Phone Shabbir Natarajan MD Primary Care Provider [phone] Encounter Details Date Type Department Care Team (Late st Contact Info) Description 01/17/2025 Vocera Communicationst Message Enc [facility] Medical Group Multispecialty Care - [place] [address] [place] [address] [address] [place] [address] Shabbir Natarajan MD 1188 [facility] [address] [place], [place] [id number] Question Social History Tobacco Use Types Packs/Day Years Used Date Smoking Tobacco: Never Smokeless Tobacco: Never Comments:Counseled by Dr Stephany liao. Alcohol Use Standard Drinks/Week Comments Never 0 (1 standard drink = 0.6 oz pur e alcohol) PHQ-2 Answer Date Recorded Patient Health Questionnaire-2 Score 0 10/22/2024 Comments No Sex and Gender Information Value Date Recorded Sex Assigned at Female 10/22/2024 7:09 AM CDT Legal Sex Female 11:20 AM CDT Gender Identity Female 10/22/2024 7:09 AM CDT Sexual Orientation Not on file documented as of this encounter Plan of Treatment Upcoming Encounters Date Type Department Care Team (Latest Contact Info) Description 06/13/2025 11:53 AM [facility] Hospital Encounter [facility] [address] [place], [place] [id number] He Rogers MD 3 [facility] [address] [place] [address] 06/13/2025 11:53 AM DIE MAKER STAMPING - 06/13/2025 12:25 PM DIE MAKER STAMPING Surgery [facility] [address] [place] [address] He Rogers MD 3 [facility] [address] [place] [address] COLONOSCOPY SCREENING 10/06/2025 7:20 AM CDT Office Visit [facility] Medical Group Multispecialty Care - [place] [address] [address] [place] [address] Shabbir Natarajan MD [address] [place] [address] [address] [place] [address] Scheduled Procedures Name Priority Associated Diagnoses Date/Ti me COLONOSCOPY SCREENING Screening for colon cancer 06/13/2025 11:53 AM DIE MAKER STAMPING documented as of this encounter Visit Diagnoses Not on filedocumented in this encounter Additional Health Concerns Assessment Noted Time PHQ-9 Depression Total Score: 0 10/23/19 7:12 AM CDT documented as of this encounter Care Teams Office Helper Clerical Relationship Specialty [place] [address] [place] [address] [address] [place] [address] PCP - General INTERNAL MEDICINE 09/05/22 documented as of this encounter
--- OUTSIDE RECORDS SUMMARY | 2025-05-12 16:41 | XMS_ITS | Encounter Summary ---
Author Organization [facility] Address [facility] [place] [address] Care Team Providers Care Loft Worker Apprentice Name Role Phone Shabbir Natarajan MD Primary Care Provider [phone] Encounter Details Date Type Department Care Team (Late st Contact Info) Description 10/28/2024 SpinX Technologiest Message Enc [facility] Medical Group Multispecialty Care - [place] [address] [place] [address] [address] [place] [address] Shabbir Natarajan MD 1188 [facility] 157 [place], [place] [phone] Omeprazole. Social History Tobacco Use Types Packs/Day Years [...] (Latest Contact Info) Description 06/13/2025 11:53 AM [facility] Hospital Encounter [facility] [address] [place] [address] He Rogers MD 3 [facility] [address] [place] [address] 06/13/2025 11:53 AM ACTIVATED SLUDGE ATTENDANT - 06/13/2025 12:25 PM ACTIVATED SLUDGE ATTENDANT Surgery [facility] Surgery [address] [place] [address] He Rogers MD 3 [facility] [address] [place] [address] COLONOSCOPY SCREENING 10/06/2025 7:20 AM CDT Office Visit [facility] Medical Group Multispecialty Care - [place] [address] [address] [place] [address] Shabbir Natarajan MD [address] [place] [address] [address] [place] [address] Scheduled Procedures Name Priority Associated Diagnoses Date/Ti me COLONOSCOPY SCREENING Screening for colon cancer 06/13/2025 11:53 AM ACTIVATED SLUDGE ATTENDANT documented as of this encounter Visit Diagnoses Not on filedocumented in this encounter Additional Health Concerns Assessment Noted Time PHQ-9 Depression Total Score: 0 10/23/19 7:12 AM CDT documented as of this encounter Care Teams Loft Worker Apprentice Relationship Specialty [place] [address] [place] [address] [address] [place] [address] PCP - General INTERNAL MEDICINE 09/05/22 documented as of this encounter
--- OUTSIDE RECORDS SUMMARY | 2025-05-12 16:41 | XMS_ITS | Encounter Summary ---
Author Organization [facility] Address [facility] [place] [address] Care Team Providers Care Offset Lithographic Press Setter Name Role Phone Shabbir Natarajan MD Primary Care Provider [phone] Encounter Details Date Type Department Care Team (Late st Contact Info) Description 10/25/2024 Digifyt Message Enc [facility] Medical Group Multispecialty Care - [place] [address] [place] [address] [address] [place] [address] Shabbir Natarajan MD 1188 [facility] 157 [place], [place] [phone] TB Result Social History Tobacco Use Types Packs/Day Years [...] (Latest Contact Info) Description 06/13/2025 11:53 AM [facility] Hospital Encounter [facility] [address] [place], [place] [phone] He Rogers MD 3 [facility] [address] [place] [address] 06/13/2025 11:53 AM STOVE MOUNTER - 06/13/2025 12:25 PM STOVE MOUNTER Surgery [facility] Surgery [address] [place] [address] He Rogers MD 3 [facility] [address] [place] [address] COLONOSCOPY SCREENING 10/06/2025 7:20 AM CDT Office Visit [facility] Medical Group Multispecialty Care - [place] [address] [address] [place] [address] Shabbir Natarajan MD [address] [place] [address] [address] [place] [address] Scheduled Procedures Name Priority Associated Diagnoses Date/Ti me COLONOSCOPY SCREENING Screening for colon cancer 06/13/2025 11:53 AM STOVE MOUNTER documented as of this encounter Visit Diagnoses Not on filedocumented in this encounter Additional Health Concerns Assessment Noted Time PHQ-9 Depression Total Score: 0 10/23/19 7:12 AM CDT documented as of this encounter Care Teams Offset Lithographic Press Setter Relationship Specialty Start [place] [address] [place] [address] 157 [place] [address] PCP - General INTERNAL MEDICINE 09/05/22 documented as of this encounter
--- OUTSIDE RECORDS SUMMARY | 2025-05-12 16:41 | XMS_ITS | Clinical Summary ---
Author Organization [facility] Address [address] [place] [address] Care Team Providers Care Audio Visual Project Manager Name Role Phone Shabbir Natarajan MD Primary Care Provider [phone] Allergies No known active allergies Medications VITAMINS 28-0.8 MG tabletIndication s:Loss of hair TAKE 1 TABLET BY MOUTH EVERY DAY 90 tablet 5 Active Na sulfate-K sulfate-Mg sulfate (SUPREP BOWEL PREP) 17.5-3.13-1.6 GM/177ML SolutionIndicati ons:Screening for colon cancer Take 177 mLs by mouth every 12 (twelve) hours. Pour ONE (1) 6-ounce bottle of SUPREP liquid into the mixing container. Add cool drinking water to the 16-ounce line on the container and mix. Have the patient Drink: ALL the liquid in the container, then drink two (2) more 16-ounce containers of water over the next 1 hour. 354 mL 5 Active Additional Information Patient not taking.Reported on 02/21/2025 omeprazole (PRILOSEC) 40 MG capsuleIndicatio ns:Gastroesophag eal reflux disease without esophagitis Take 1 capsule (40 mg total) by mouth daily as needed. 90 capsule 1 5 Active topiramate (TOPAMAX) 25 MG tabletIndication s:Overweight (BMI 25.0-29.9) Take 1 tablet (25 mg total) by mouth daily. 90 tablet 1 5 Active spironolactone (ALDACTONE) 25 MG tabletIndication s:Loss of hair Take 1 tablet (25 mg total) by mouth daily. 90 tablet Active fluticasone propionate (FLONASE) 50 MCG/ACT nasal sprayIndications :Environmental and seasonal allergies 2 sprays by Nasal route daily. 16 g 5 Active azelastine (ASTELIN) 0.1 % nasal sprayIndications :Environmental and seasonal allergies 1 spray by Nasal route 2 (two) times daily. Use in each nostril as directed 30 mL 5 5 Active Active Problems Problem Noted Date Diagnosed Date Rash and nonspecific skin eruption 10/13/2023 Resolved Problems Problem Noted Date Diagnosed Date Resolved Date Screening for colon cancer 01/22/2025 0 01/27/2025 Screening for colon cancer 01/22/2025 1 06/07/2024 Encounters Date Type Department Care Team Description 05/08/2025 MyChart Message Enc [address] [address] [address] [place] [address] Shabbir Natarajan MD back pain 04/21/2025 Results Follow-Up [facility] [place] [address] [address] [place] [address] HEART SCREEN CALCIUM SCORE PROMO 04/20/2025 10:21 AM PYROTECHNICS PRESS TENDER - 04/20/2025 11:59 PM PYROTECHNICS PRESS TENDER Hospital Encounter [facility] [address] [place] [address] Shabbir Natarajan MD Discharge Disposition: Home or Self Care (Routine Discharge) 04/20/2025 Travel 04/07/2025 7:00 AM PYROTECHNICS PRESS TENDER Office [facility] [place] [address] [facility] [address] [place] [address] Shabbir Natarajan MD Physical; Follow Up (Chronic medical issues) 04/07/2025 - 04/07/2025 11:59 PM PYROTECHNICS PRESS TENDER Hospital Encounter [facility] [address] Shabbir Natarajan MD Discharge Disposition: Home or Self Care (Routine Discharge) 04/07/2025 Results Follow-Up [place] [address] [address] [facility] [address] [place] [address] Shabbir Natarajan MD VITAMIN D 25 OH, HEMOGLOBIN, GLYCOSYLATED, TSH W/REFLEX, Additional followed-up results: 6 04/07/2025 Travel 02/24/2025 Scan [facility] SR[facility] Scanned, [facility] 02/21/2025 11:40 AM CDT Office Visit [place] [address] [address] [facility] [address] [place] [address] Shabbir Natarajan MD Follow Up (Acute - tiredness and dizziness. Wanting blood tests done. SX for about 2 weeks ) 02/21/2025 Telephone [place] [address] [address] [address] [place] [address] Shabbir Natarajan MD Returned Call 02/21/2025 Results Follow-Up [place] [address] [address] [facility] [address] [place] [address] Shabbir Natarajan MD EKG WELCHALLEN ACQUIRED, IRON SAT PANEL (IRON,IBC,%SAT), FERRITIN, Additional followed-up results: 3 02/21/2025 Travel 02/12/2025 MyChart Message Enc [place] [address] [address] [facility] [address] [place] [address] Shabbir Natarajan MD Test from Last 3 Months Immunizations Immunization Administration Dates Next Due Fluzone (IIV3, Trivalent, 0.5 ML Prefilled Syrin ge) 04/07/2025 [employer] ([employer]) COVID-19 AD26 VACCINE 0.5 [...] Date Recorded Patient Health Questionnaire-2 Score 0 04/07/2025 Humiliation, Afraid, Rape, and Kick questionnair e Answer Date Recorded Within the last year, have y ou been afraid of your partner or ex-partner? No 04/07/2025 Within the last year, have y ou been humiliated or emotionally abused in other ways by your partner or ex-partner? No Within the last year, have y ou been kicked, hit, slapped, or otherwise physically hurt by your partner or ex-partner? No 04/07/2025 Within the last year, have y ou been raped or forced to have any kind of sexual activity by your partner or ex-partner? No 04/07/2025 Social Connection and Isolation Panel Answer Date Recorded In a typical week, how many times do you talk on the phone with family, friends, or neighbors? Patient unable to answer 04/07/2025 How often do you get togethe r with friends or relatives? Patient unable to answer 04/07/2025 How often do you attend [facility] services? Patient declined 04/07/2025 Do you belong to any clubs o r organizations such as sikhism groups, unions, fraternal or athletic groups, or school groups? Patient declined 04/07/2025 How often do you attend meet ings of the clubs or organizations you belong to? Patient unable to answer 04/07/2025 Are you , , di vorced, , never , or living with a partner? 04/07/2025 AUDIT-C Answer Date Recorded Q1: How often do you have a drink containing alcohol? Never 04/07/2025 Q2: How many drinks containi ng alcohol do you have on a typical day when you are drinking? Patient does not drink Q3: How often do you have si x or more drinks on one occasion? Never 04/07/2025 Overall Financial Resource Strain (CARDIA) Answe r Date Recorded How hard is it for you to pa y for the very basics like food, housing, medical care, and heating? Patient unable to answer 04/07/2025 [facility] - Occupational Stress Questionnaire Answer Date Recorded Do you feel stress - tense, restless, nervous, or anxious, or unable to sleep at night because your mind is troubled all the time - these days? Rather much 04/07/2025 Exercise Vital Sign Answer Date Recorde d On average, how many days pe r week do you engage in moderate to strenuous exercise (like a brisk walk)? 0 days 04/07/2025 On average, how many minutes do you engage in exercise at this level? 0 min 04/07/2025 Hunger Vital Sign Answer Date Recorded Within the past 12 months, y ou worried that your food would run out before you got the money to buy more. Patient declined Within the past 12 months, t he food you bought just didn't last and you didn't have money to get more. Patient declined 02/2025 PRAPARE - Transportation Answer Date Re corded In the past 12 months, has l ack of transportation kept you from medical appointments or from getting medications? No 03/29 In the past 12 months, has l ack of transportation kept you from meetings, work, or from getting things needed for daily living? No 04/07/2025 Housing Stability Vital Sign Answer Sunil e Recorded In the last 12 months, was t here a time when you were not able to pay the mortgage or rent on time? No 04/07/2025 Number of Times Moved in the Last Year Not on fi le 04/07/2025 At any time in the past 12 m [facility], were you homeless or living in a skilled nursing (including now)? No 04/07/2025 [id number] Health Literacy Answer Date Recor ded How often do you need to hav e someone help you when you read instructions, pamphlets, or other written material from your doctor or pharmacy? Never 04/07/2025 [facility] Utilities Answer Date Recorded In the past 12 months has e electric, gas, oil, or water company threatened to shut off services in your home? No 04/07/2025 Comments No Sex and Gender Information Value Date Recorded Sex Assigned at Female 10/22/2024 7:09 AM CDT Legal Sex Female 11:20 AM CDT Gender Identity Female 10/22/2024 7:09 AM CDT Sexual Orientation Not on file Last Filed Vital Signs Vital Sign Reading Time Taken Comments Blood Pressure 106/73 04/07/2025 7:10 AM PYROTECHNICS PRESS TENDER Pulse 65 04/07/2025 7:10 AM PYROTECHNICS PRESS TENDER Temperature 37 C (98.6 F) 04/07/2025 7:10 AM PYROTECHNICS PRESS TENDER Respiratory Rate 16 04/07/2025 7:10 AM PYROTECHNICS PRESS TENDER Oxygen Saturation 98% 04/07/2025 7:10 AM PYROTECHNICS PRESS TENDER Inhaled Oxygen Concentration - - Weight 64.7 kg (142 lb 9.6 oz) 04/07/2025 7:10 A M PYROTECHNICS PRESS TENDER Height 165.1 cm (5' 5) 04/07/2025 7:10 AM PYROTECHNICS PRESS TENDER Body Mass Index 23.73 04/07/2025 7:10 AM PYROTECHNICS PRESS TENDER Plan of Treatment Upcoming Encounters Date Type Department Care Team (Latest Contact Info) Description 06/13/2025 11:53 AM PYROTECHNICS PRESS TENDER Hospital Encounter [facility] [address] [place] [address] He Rogers MD [address] [address] 06/13/2025 11:53 AM PYROTECHNICS PRESS TENDER - 06/13/2025 12:25 PM PYROTECHNICS PRESS TENDER Surgery [facility] [address] [place] [address] He Rogers MD [address] [address] COLONOSCOPY SCREENING 10/06/2025 7:20 AM CDT Office Visit [facility] - [address] [place] [address] Shabbir Natarajan MD [address] [facility] [address] [place] [address] Scheduled Procedures Name Priority Associated Diagnoses Date/Ti me COLONOSCOPY SCREENING Screening for colon cancer 06/13/2025 11:53 AM PYROTECHNICS PRESS TENDER Health Maintenance Due Date Last Done Comments Colorectal Cancer Screening Colonoscopy (10 Years) 1980 Hepatitis B Vaccines (1 of 3 - 19+ 3-dose series) 09/28/1998 HPV Vaccines (1 - 3-dose SCDM series) 09/28/2006 COVID-19 Vaccine ( season) 2025 02/26/2022, 04/10/2021, 09/26/2020 Cervical Cancer Screening Pap Smear (Age 30 to 64) Every 3 Years 10/18/2025 10/18/2022 Annual Physical 04/07/2026 04/07/2025, 09/27, 10/17/2023, Additional history exists Mammogram Screening 05/10/2026 05/10/2024, 04/06/2021, 04/06/2021 Cervical Cancer Screening Pap with HPV Testing (Age 30 to 64) Every 5 Years 10/19/2027 10/18/2022 Cervical Cancer Screening with HPV 10/19/2027 DTaP, Tdap and Td Vaccines (2 - Td or Tdap) 09/09/2031 09/08/2021 Hepatitis C Completed 10/21/2022 Influenza Adult Completed 04/07/2025 PHQ-2 (Physician [place]) Completed 04/07/2025 Hepatitis A Vaccines Aged Out No long er eligible based on patient's age to complete this topic Meningococcal B Vaccine Aged Out No l onger eligible based on patient's age to complete this topic Meningococcal Vaccine Aged Out No tony savana eligible based on patient's age to complete this topic Pneumococcal Vaccine: Pediatrics (0 to 5 Years) and At-Risk Patients (6 to 49 Years) Aged Out No longer eligible based on patient's age to complete this topic RSV Immunizations Under 20 Months Aged Out No longer eligible based on patient's age to complete this topic Procedures Procedure Name Priority Date/Time Associated Diagnosis Comments CT HEART SCREEN CALCIUM SCORE PROMO Routine 04/20/2025 11:00 AM PYROTECHNICS PRESS TENDER Elevated lipoprotein(a) Family history of heart disease LIPOPROTEIN A Routine 04/07/2025 7:39 AM PYROTECHNICS PRESS TENDER Annual physical exam General medical exam Drug therapy GENERAL HEALTH PANEL Routine 04/07/2025 7:39 AM PYROTECHNICS PRESS TENDER Annual physical exam General medical exam Drug therapy COMPREHENSIVE METABOLIC PANEL Routine 04/07/2025 7:39 AM PYROTECHNICS PRESS TENDER Annual physical exam General medical exam Drug therapy LIPID PANEL Routine 04/07/2025 7:39 AM PYROTECHNICS PRESS TENDER Annual physical exam General medical exam Drug therapy TSH W/REFLEX Routine 04/07/2025 7:39 AM PYROTECHNICS PRESS TENDER Annual physical exam General medical exam Drug therapy HEMOGLOBIN, GLYCOSYLATED Routine 025 7:39 AM PYROTECHNICS PRESS TENDER Annual physical exam General medical exam Drug therapy HOMOCYSTEINE Routine 04/07/2025 7:39 AM PYROTECHNICS PRESS TENDER Annual physical exam General medical exam Drug therapy VITAMIN D, 25 OH Routine 04/07/2025 7:39 AM PYROTECHNICS PRESS TENDER Annual physical exam General medical exam Drug therapy Vitamin D deficiency COLLECTION VENOUS BLOOD VENIPUNCTURE Routine 04/07/2025 7:28 AM PYROTECHNICS PRESS TENDER Annual physical exam General medical exam Drug therapy URINALYSIS AUTO DIP Routine 04/07/2025 Annual physical exam General medical exam Drug therapy ELECTROCARDIOGRAM (NON MIDMARK ACQUIRED) Routine 02/21/2025 12:13 PM CDT Fatigue, unspecified type Dizziness VITAMIN B-12 Routine 02/21/2025 12:13 PM CDT Fatigue, unspecified type CBC W/DIFF AUTOMATED Routine 02/21/2025 12:05 PM CDT Fatigue, unspecified type TSH W/REFLEX Routine 02/21/2025 12:05 PM CDT Fatigue, unspecified type FERRITIN Routine 02/21/2025 12:05 PM CDT Fatigue, unspecified type IRON Routine 02/21/2025 12:05 PM CDT Fatigue, unspecified type COLLECTION VENOUS BLOOD VENIPUNCTURE Routine 02/21/2025 11:59 AM CDT Fatigue, unspecified type MG SCREENING W ROYER KIMBERLY DIGI Routine 05/10/2024 12:00 AM PYROTECHNICS PRESS TENDER Encounter for screening mammogram for malignant neoplasm of breast HEPATITIS C ANTIBODY Routine 10/21/2022 4:43 PM CDT Encounter for hepatitis C screening test for low risk patient HUMAN PAPILLOMAVIRUS, HIGH-RISK TYPES Routine 10/18/2022 12:00 PM CDT CYTOPATH CERV/VAG THIN LAYER Routine 10/18/2022 7:30 AM CDT from Last 3 Months or Most Recently Relevant to Health Maintenance Results * CT HEART SCREEN CALCIUM SCORE PROMO (04/20/2025 11:00 AM PYROTECHNICS PRESS TENDER) Anatomical Region Laterality Modality Chest Computed Tomogra phy 04/21/2025 6:53 AM PYROTECHNICS PRESS TENDER Impressions 04/21/2025 6:54 AM PYROTECHNICS PRESS TENDER =====IMPRESSION:===== Total Score: 0 No plaque, very low risk, very unlikely for probability of significant CAD Ordered By: SHABBIR NATARAJAN Interpreted By: Herb Lee MD, 04/21/2025 6:53 AM Narrative 04/21/2025 6:54 AM PYROTECHNICS PRESS TENDER [address] [address] EXAMINATION: Multislice Helical CT Coronary Calcium Scoring REASON FOR EXAM: Screening for heart disease COMPARISON: None TECHNIQUE: Multislice helical CT images of the proximal coronary arteries with a computer generated calcification score. A dose lowering technique was used for this procedure, which may include, but is not limited to, dose reduction technique, automated exposure control, iterative reconstruction, ALARA (As Low As Reasonably Achievable), or Image Gently techniques. Results: Left main: 0 LAD: 0 Circumflex: 0 Right coronary: 0 Total Score: 0 Comments: There is no mediastinal adenopathy, and there are no pulmonary nodules in the visualized portions of the chest. Calcium score guidelines: Total Score* Calcium Plaque Cantonment *Risk *Probability of significant CAD 0 No Plaque Very Low Very unlikely 1-10 Minimal Plaque Low Unlikely 11-100 Mild Plaque Moderate Low likelihood of significant stenosis <50% 101-400 Moderate Plaque Moderately High Moderate likelihood of significant stenosis (>50%) Over 400 Extensive Plaque High High likelihood of significant stenosis (>50%) The amount of coronary artery calcification correlates with the severity of coronary atherosclerosis and the probability of future significant event. Calcification is not site specific for stenosis and does not identify non-calcified atherosclerotic plaque, but rather indicates the extent of atherosclerosis in the coronary arteries overall. The score may be used as an indicator for risk factor modification or additional cardiac testing. Significant change in calcium score over time may be indicative of subsequent disease development or useful as a benchmark to assess preventative programs. Procedure Note Herb Lee MD - 04/21/[address] [address] EXAMINATION: Multislice Helical CT Coronary Calcium Scoring REASON FOR EXAM: Screening for heart disease COMPARISON: None TECHNIQUE: Multislice helical CT images of the proximal coronary arterieswith a computer generated calcification score. A dose lowering techniquewas used for this procedure, which may include, but is not limited to,dose reduction technique, automated exposure control, iterativereconstruction, ALARA (As Low As Reasonably Achievable), or Image Gentlytechniques. Results: Left main: 0 LAD: 0 Circumflex: 0 Right coronary: 0 Total Score: 0 Comments: There is no mediastinal adenopathy, and there are no pulmonarynodules in the visualized portions of the chest. Calcium score guidelines: Total Score* Calcium Plaque Cantonment *Risk *Probability ofsignificant CAD 0 No Plaque Very LowVery unlikely 1-10 Minimal Plaque LowUnlikely 11-100 Mild Plaque ModerateLow likelihood of significant stenosis <50% 101-400 Moderate Plaque Moderately HighModerate likelihood of significant stenosis (>50%) Over 400 Extensive Plaque HighHigh likelihood of significant stenosis (>50%) The amount of coronary artery calcification correlates with the severityof coronary atherosclerosis and the probability of future significantevent. Calcification is not site specific for stenosis and does notidentify non-calcified atherosclerotic plaque, but rather indicates theextent of atherosclerosis in the coronary arteries overall. The score may be used as an indicator for risk factor modification oradditional cardiac testing. Significant change in calcium score over timemay be indicative of subsequent disease development or useful as abenchmark to assess preventative programs. =====IMPRESSION:===== Total Score: 0 No plaque, very low risk, very unlikely for probability ofsignificant CAD Ordered By: SHABBIR NATARAJAN Interpreted By: Herb Lee MD, 04/21/2025 6:53 AM Shabbir Natarajan MD CT Final Result * (ABNORMAL) VITAMIN D 25 OH (04/07/2025 7:39 AM PYROTECHNICS PRESS TENDER) [facility] VITAMIN D 25 HYDROXY TOTAL S/P/B 27.4(L) 30 - 100 NG/ML 04/07/2025 3:33 PM PYROTECHNICS PRESS TENDER -[facility] Comment: DEFICIENT <20 INSUFFICIENT 20-30 SUFFICIENT 30-100 BLOOD VENOUS BLOOD SPECIMEN / Unknown 04/07/2025 7:39 AM PYROTECHNICS PRESS TENDER us Shabbir Natarajan MD LABORATORY Final Result [facility] [address] [place] [address], * (ABNORMAL) LIPOPROTEIN A (04/07/2025 7:39 AM PYROTECHNICS PRESS TENDER) [facility] LIPOPROTEIN (A) 170(H) nmol/L [facility] Comment: Verified by repeat analysis. Reference Range <75 Risk: Optimal <75 Moderate 75-125 High >125 Cardiovascular event risk category cut points (optimal, moderate, high) are based on Dariela Xiong [facility] 2017;69:[id number]. BLOOD VENOUS BLOOD SPECIMEN / Unknown 04/07/2025 7:39 AM PYROTECHNICS PRESS TENDER 04/08/2025 5:51 AM PYROTECHNICS PRESS TENDER Narrative Resulting Agency Comment Performing Organization Information: Site ID: CB Name: [facility] Address: [address] [place] [id number] Director: Kartik Rahman Shabbir Natarajan MD LABORATORY Final Result [facility] Bee There [facility] [address] [place] [address] * (ABNORMAL) LIPID PANEL (04/07/2025 7:39 AM PYROTECHNICS PRESS TENDER) Pathologist [facility] CHOLESTEROL 197 <200 MG/DL 04/07/2025 3:33 PM PYROTECHNICS PRESS TENDER [facility] TRIGLYCERIDES 50 <150 MG/DL 04/07/2025 3:33 PM PYROTECHNICS PRESS TENDER [facility] HDL 72 >40 MG/DL 04/07/2025 3:33 PM PYROTECHNICS PRESS TENDER [facility] LDL-C 115(H) <100 MG/DL 04/07/2025 3:33 PM PYROTECHNICS PRESS TENDER [facility] VLDL CALCULATION 10 5 - 28 MG/DL 04/07/2025 3:33 PM [facility] CHOL/HDL RATIO 2.7 0.0 - 4.0 04/07/2025 3:33 PM PYROTECHNICS PRESS TENDER [facility] LDL/HDL 1.6 0.41 - 2.13 04/07/2025 3:33 PM PYROTECHNICS PRESS TENDER [facility] NON HDL CHOLESTEROL 125 <140 MG/DL 04/07/2025 3:33 PM PYROTECHNICS PRESS TENDER [facility] [place] BLOOD VENOUS BLOOD SPECIMEN / Unknown 04/07/2025 7:39 AM PYROTECHNICS PRESS TENDER Shabbir Natarajan MD LABORATORY Final Result Performing Organization Address [facility] Co de Phone Number [facility] [address] [place] [address], * HOMOCYSTEINE (04/07/2025 7:39 AM PYROTECHNICS PRESS TENDER) [facility] HOMOCYSTEINE S/P/B 7 3 - 11 MCMOL/L 04/07/2025 6:10 PM PYROTECHNICS PRESS TENDER [facility] HOMOCYSTINE NORMALS NORMAL LEVEL IS LESS THAN OR EQUAL TO 9 04/07/2025 7:39 AM PYROTECHNICS PRESS TENDER [facility] Comment: MILD IS 10 TO 15 UMOL/L MODERATE IS 16 TO 30 UMOL/L MODERATE TO SEVERE IS 31 TO 100 UMOL/L SEVERE IS GREATER THAN 100 UMOL/L BLOOD VENOUS BLOOD SPECIMEN / Unknown 04/07/2025 7:39 AM PYROTECHNICS PRESS TENDER Shabbir Natarajan MD LABORATORY Final Result Performing Organization Address [facility] de Phone Number [facility] [address] [place] [address], [phone] * HEMOGLOBIN, GLYCOSYLATED (04/07/2025 7:39 AM PYROTECHNICS PRESS TENDER) [facility] HGB A1C 4.8 4.5 - 6.2 % 04/07/2025 4:50 PM PYROTECHNICS PRESS TENDER [facility] ESTIMATED AVG GLUCOSE 91 74 - 106 MG/DL 04/07/2025 4:50 PM PYROTECHNICS PRESS TENDER [facility] BLOOD VENOUS BLOOD SPECIMEN / Unknown 04/07/2025 7:39 AM PYROTECHNICS PRESS TENDER Shabbir Natarajan MD LABORATORY Final Result -[facility] [address] [place] [address], * (ABNORMAL) COMPREHENSIVE METABOLIC PANEL (04/07/2025 7:39 AM PYROTECHNICS PRESS TENDER) [facility] SODIUM S/P/B 139 136 - 145 MMOL/L 04/07/2025 3:33 PM [facility] POTASSIUM S/P/B 4.6 3.5 - 5.1 MMOL/L 04/07/2025 3:33 PM [facility] CHLORIDE S/P/B 105 98 - 107 MMOL/L 04/07/2025 3:33 PM [facility] CO2 24.8 21 - 32 MMOL/L 04/07/2025 3:33 PM [facility] GLUCOSE 90 70 - 99 MG/DL 04/07/2025 3:33 PM [facility] BUN 19(H) 7 - 18 MG/DL 04/07/2025 3:33 PM [facility] CREATININE S/P/B 0.84 0.55 - 1.02 MG/DL 04/07/2025 3:33 PM [facility] CALCIUM S/P/B 9.1 8.4 - 10.5 MG/DL 04/07/2025 3:33 PM [facility] BILIRUBIN TOTAL S/P/B 0.5 0.2 - 1.0 MG/DL 04/07/2025 3:33 PM [facility] ALKALINE PHOSPHATASE S/P/B 50 37 - 98 U/L 04/07/2025 3:33 PM [facility] AST 9(L) 15 - 37 U/L 04/07/2025 4:13 PM [facility] Comment:RESULTS CONFIRMED-TE ST REPEATED ALT 20 14 - 59 U/L 04/07/2025 4:13 PM [facility] TOTAL PROTEIN S/P/B 7.5 6.4 - 8.2 G/DL 04/07/2025 3:33 PM PYROTECHNICS PRESS TENDER [facility] ALBUMIN S/P/B 3.7 3.4 - 5.0 G/DL 04/07/2025 3:33 PM PYROTECHNICS PRESS TENDER [facility] ANION GAP 9.2 5 - 15 MMOL/L 04/07/2025 3:33 PM PYROTECHNICS PRESS TENDER [facility] Comment:REFERENCE RANGE NOT ESTABLISHED OSMOLALITY (CALC) 290 MOSM/KG 025 3:33 PM PYROTECHNICS PRESS TENDER [facility] Comment:REFERENCE RANGE NOT ESTABLISHED GFR ESTIMATE 87(L) >90 ML/MIN/1. 73 M2 04/07/2025 3:33 PM PYROTECHNICS PRESS TENDER [facility] GFR NOTES GFR REFERENCE S: 04/07/2025 3:33 PM PYROTECHNICS PRESS TENDER [facility] Comment: THE ESTIMATED GFR IS CALCULATED USING [...] ml/min/1.73 m2 G5,KIDNEY FAILURE: <15 ml/min/1.73 m2 BLOOD VENOUS BLOOD SPECIMEN / Unknown 04/07/2025 7:39 AM PYROTECHNICS PRESS TENDER us Shabbir Natarajan MD LABORATORY Final Result [facility] [address] [facility] [address], * (ABNORMAL) CBC W/DIFF (04/07/2025 7:39 AM PYROTECHNICS PRESS TENDER) [facility] WBC 7.71 4.00 - 10.80 x10'3/uL 04/07/2025 3:28 PM [facility] RBC 4.03(L) 4.10 - 5.40 x10'6/uL 04/07/2025 3:28 PM [facility] HGB 12.5 12.0 - 16.0 G/DL 04/07/2025 3:28 PM [facility] HCT 38.2 36.0 - 47.0 % 04/07/2025 3:28 PM [facility] MCV 94.8 78.0 - 100.0 FL 04/07/2025 3:28 PM [facility] MCH 31.0 27.0 - 31.0 PG 04/07/2025 3:28 PM [facility] MCHC 32.7(L) 33.0 - 36.0 G/DL 04/07/2025 3:28 PM [facility] RDW 13.0 11.5 - 14.5 % 04/07/2025 3:28 PM [facility] PLT 352(H) 150 - 350 x10'3/uL 04/07/2025 3:28 PM [facility] MPV 10.3 7.4 - 10.4 FL 04/07/2025 3:28 PM [facility] DIFFERENTIAL TYPE AUTOMATED DIFFERENTIAL 04/07/2025 3:28 PM [facility] NEUTROPHILS % 59.6 % 04/07/2025 3:28 PM [facility] LYMPHOCYTES % 31.4 % 04/07/2025 3:28 PM [facility] MONOCYTES % 7.4 % 04/07/2025 3:28 PM [facility] EOSINOPHILS % 1.0 % 04/07/2025 3:28 PM [facility] BASOPHILS % 0.5 % 04/07/2025 3:28 PM PYROTECHNICS PRESS TENDER [facility] IMMATURE GRANS % 0.1 % 04/07/2025 3:28 PM PYROTECHNICS PRESS TENDER [facility] ABS. NEUTROPHILS 4.59 1.60 - 8.30 x10'3/uL 04/07/2025 3:28 PM PYROTECHNICS PRESS TENDER [facility] ABS. LYMPHOCYTES 2.42 0.80 - 4.70 x10'3/uL 04/07/2025 3:28 PM PYROTECHNICS PRESS TENDER [facility] ABS. MONOCYTES 0.57 0.00 - 1.50 x10'3/uL 04/07/2025 3:28 PM PYROTECHNICS PRESS TENDER [facility] ABS. EOSINOPHILS 0.08 0.00 - 0.40 x10'3/uL 04/07/2025 3:28 PM PYROTECHNICS PRESS TENDER [facility] ABS. BASOPHILS 0.04 0.00 - 0.20 x10'3/uL 04/07/2025 3:28 PM PYROTECHNICS PRESS TENDER [facility] ABS. IMMATURE GRANULOCYTES 0.01 0.00 - 0.03 x10'3/uL 04/07/2025 3:28 PM PYROTECHNICS PRESS TENDER [facility] BLOOD VENOUS BLOOD SPECIMEN / Unknown 04/07/2025 7:39 AM PYROTECHNICS PRESS TENDER Shabbir Natarajan MD LABORATORY Final Result [facility] [address] [place] [address], * TSH W/REFLEX (04/07/2025 7:39 AM PYROTECHNICS PRESS TENDER) Only the most recent of2 resultswithin the time period is included. TSH 2.296 0.358 - 3.740 uIU/ML 04/07/2025 3:33 PM PYROTECHNICS PRESS TENDER [facility] BLOOD VENOUS BLOOD SPECIMEN / Unknown 04/07/2025 7:39 AM PYROTECHNICS PRESS TENDER us Shabbir Natarajan MD LABORATORY Final Result -[facility] [place] [address] [place] [address], [place] [phone] * (ABNORMAL) URINALYSIS AUTO DIP (04/07/2025) COLOR (U) YELLOW YELLOW MG-[address], [place] TRANSPARENCY CLEAR CLEAR MG-[address], [place] GLUCOSE (U) NEGATIVE NEGATIVE MG/DL MG-[address], [place] BILIRUBIN (U) NEGATIVE NEGATIVE MG-[address], [place] KETONES MG/DL (U) NEGATIVE NEGATIVE MG/DL MG-[address], [place] SPECIFIC GRAVITY (U) 1.015 1.001 - 1.035 MG-[address], [place] BLOOD (U) NEGATIVE NEGATIVE MG-[address], [place] U PH 6.5 5.0 - 9.0 MG-[address], [place] PROTEIN (U) NEGATIVE NEGATIVE mg/dL MG-[address], [place] UROBILINOGEN 0.2 0.2 - 1.0 EU/dL = mg/dL MG-[address], [place] NITRITES NEGATIVE NEGATIVE MG/DL MG-[address], [place] LEUKOCYTES (U) TRACE(A) NEGATIVE MG-[address], [place] URINE URINE SPECIMEN OBTAINED BY CLEAN CATCH PROCEDURE / Unknown 04/07/2025 Shabbir Natarajan MD URINE ORDERABLES Edited Result - Final MG-[address], [place] [address] [place] [address], [place] [phone] * EKG WELCHALLEN ACQUIRED (02/21/2025 12:13 PM CDT) 02/21/2025 12:1 3 PM CDT Narrative [facility] RAD - 03/03/2025 1:35 PM CDT [place] [address] [place] [address] Test Date: 2025-02-21 Pat Name: ANI ABDI DELIMADepartment: 171 Room: Gender: Female Mail Inserter: : 1980 Requested By: SHABBIR NATARAJAN Order Number: [id number] Reading MD: Shabbir Natarajan Measurements Intervals [place] Rate: 67 P: -8 NC: 151 QRS: 50 QRSD: 96 T: 45 QT: 403 QTc: 427 Interpretive Statements SINUS RHYTHM Procedure Note Shabbir Natarajan MD - 03/03/2025 [place] [address] [place] [address] Test Date: 2025-02-21 Pat Name: ANI ABDI DELIMADepartment: 171 Room: Gender: Female Mail Inserter: : 1980 Requested By: SHABBIR NATARAJAN Order Number: [id number] Reading MD: Shabbir Natarajan Measurements Intervals [place] Rate: 67 P: -8 NC: 151 QRS: 50 QRSD: 96 T: 45 QT: 403 QTc: 427 Interpretive Statements SINUS RHYTHM Shabbir Natarajan MD PROCEDURES-ORDERABLE NO CHARGE F inal Result Performing Organization Address City/State/[facility] Co de Phone Number [facility] RAD * VITAMIN B-12 (02/21/2025 12:13 PM CDT) VITAMIN B12 S/P/B 452 193 - 986 PG/ML 02/21/2025 9:56 PM CDT [facility] 02/21/2025 12:1 3 PM CDT Shabbir Natarajan MD LABORATORY Final Result Performing Organization Address City/[facility] Co de Phone Number [facility] [address] [place] [address], * IRON SAT PANEL (IRON,IBC,%SAT) (02/21/2025 12:05 PM CDT) IRON 113 50 - 170 MCG/DL 02/21/2025 9:51 PM CDT [facility] IRON BINDING CAPACITY 323 250 - 450 MCG/DL 02/21/2025 9:51 PM CDT [facility] IRON SATURATION 35 % 9:51 PM CDT [facility] Comment:REFERENCE RANGE NOT ESTABLISHED 02/21/2025 12:0 5 PM CDT Shabbir Natarajan MD LABORATORY Final Result Performing Organization Address [facility] Co de Phone Number [place] [address] [place] [address], * (ABNORMAL) CBC W/DIFF AUTOMATED (02/21/2025 12:05 PM CDT) WBC 7.43 4.00 - 10.80 x10'3/uL 02/21/2025 8:31 PM CDT [facility] RBC 4.09(L) 4.10 - 5.40 x10'6/uL 02/21/2025 8:31 PM CDT [facility] HGB 12.7 12.0 - 16.0 G/DL 02/21/2025 8:31 PM CDT [facility] HCT 38.8 36.0 - 47.0 % 02/21/2025 8:31 PM CDT [facility] MCV 94.9 78.0 - 100.0 FL 02/21/2025 8:31 PM CDT [facility] MCH 31.1(H) 27.0 - 31.0 PG 02/21/2025 8:31 PM CDT [facility] MCHC 32.7(L) 33.0 - 36.0 G/DL 02/21/2025 8:31 PM CDT [facility] RDW 12.7 11.5 - 14.5 % 02/21/2025 8:31 PM CDT [facility] PLT 383(H) 150 - 350 x10'3/uL 02/21/2025 8:31 PM CDT [facility] MPV 10.3 7.4 - 10.4 FL 02/21/2025 8:31 PM CDT [facility] DIFFERENTIAL TYPE AUTOMATED DIFFERENTIAL 02/21/2025 8:31 PM CDT [facility] NEUTROPHILS % 51.8 % 02/21/2025 8:31 PM CDT [facility] LYMPHOCYTES % 38.0 % 02/21/2025 8:31 PM CDT [facility] MONOCYTES % 9.0 % 02/21/2025 8:31 PM CDT [facility] EOSINOPHILS % 0.7 % 02/21/2025 8:31 PM CDT [facility] BASOPHILS % 0.4 % 02/21/2025 8:31 PM CDT [facility] IMMATURE GRANS % 0.1 % 02/21/2025 8:31 PM CDT [facility] ABS. NEUTROPHILS 3.85 1.60 - 8.30 x10'3/uL 02/21/2025 8:31 PM CDT [facility] ABS. LYMPHOCYTES 2.82 0.80 - 4.70 x10'3/uL 02/21/2025 8:31 PM CDT [facility] ABS. MONOCYTES 0.67 0.00 - 1.50 x10'3/uL 02/21/2025 8:31 PM [facility]T [facility] ABS. EOSINOPHILS 0.05 0.00 - 0.40 x10'3/uL 02/21/2025 8:31 PM CDT [facility] ABS. BASOPHILS 0.03 0.00 - 0.20 x10'3/uL 02/21/2025 8:31 PM CDT [facility] ABS. IMMATURE GRANULOCYTES 0.01 0.00 - 0.03 x10'3/uL 02/21/2025 8:31 PM CDT [facility] 02/21/2025 12:0 5 PM CDT us Shabbir Natarajan MD LABORATORY Final Result Performing Organization Address City/[facility]/ZIP Co de Phone Number [facility] [address] [place] [address], * FERRITIN (02/21/2025 12:05 PM CDT) Pathologist [facility] FERRITIN 59.0 8 - 252 NG/ML 02/21/2025 9:51 PM CDT [facility] 02/21/2025 12:0 5 PM CDT us Shabbir Natarajan MD LABORATORY Final Result Performing Organization Address City/[facility]/ZIP Co de Phone Number [place] [address] [place] [address], * MG SCREENING W RO[place]I (05/10/2024 12:00 AM PYROTECHNICS PRESS TENDER) Anatomical Region Laterality Modality Breast Bilateral Mammography 05/10/2024 us Shabbir Natarajan MD MAMMO Final Result * HEPATITIS C ANTIBODY ([facility] ONLY) (10/21/2022 4:43 PM CDT) HEPATITIS C AB NON-REACTI VE NON-REACT BEATRIZ 10/23/2022 8:45 PM CDT [facility] Comment: ANTIBODIES TO HCV NOT DETECTED. DOES NOT EXCLUDE THE POSSIBILITY OF EXPOSURE TO HCV. 10/21/2022 4:43 PM CDT Shabbir Natarajan MD LABORATORY Final Result Performing Organization Address City/[facility]/ZIP Co de Phone Number [facility] [address] [place] [address], [place] [phone] * HUMAN PAPILLOMAVIRUS, HIGH-RISK TYPES (10/18/2022 12:00 PM CDT) SPEC DESCRIPTION CERVICAL/END OCERVICAL 10/20/2022 8:05 AM CDT [facility] HPV DNA HIGH RISK NEGATIVE NEGATIVE 10/21/2022 1:25 PM CDT [facility] Comment:SEE CYTOLOGY REPORT 10/18/2022 12:0 0 PM CDT Shabbir Natarajan MD PATHOLOGY/CYTOLOGY ORDERABLES Fi nal Result Performing Organization Address [facility] Co de Phone Number [facility] [address] [place] [address], * Cytopath Cerv/Vag Thin Layer (10/18/2022 7:30 AM CDT) THIN PREP PAP [facility] [address] [place] [address] Department of Pathology Pathology Report CERVICAL/VAGINAL PAP SMEAR REPORT Name: ANI ABDI Age: 5 1980 (Age: 42) Location: [facility] Sex: F Collected Date: 10/18/2022 [facility] #: [id number] Date Received: 10/20/2022 Date Reported: 10/25/2022 Provider: SHABBIR NATARAJAN MD INTERPRETATION CERVICAL/ENDOCERVI LYDIA: SATISFACTORY FOR EVALUATION. ENDOCERVICAL/TRANS FORMATION ZONE COMPONENT ABSENT. NEGATIVE FOR INTRAEPITHELIAL LESION OR MALIGNANCY. NEGATIVE FOR HIGH RISK HPV. The FDA approved Aptima HPV assay is an in vitro nucleic acid amplification test for the qualitative detection of E6/E7 viral messenger RNA (mRNA) from 14 high-risk types of human papillomavirus (HPV) in cervical specimens. The high-risk HPV types detected by the assay include: 16,18,31,33,35,39, 45,51,52,56,58,59, 66, and 68. Electronically Signed Out By SWETHA Stanford (ASCP) CLINICAL HISTORY Z12.4 SCREENING PAP TEST ThinPrep Pap Test with HR HPV testing in patient > 30 years requested. Date of Last Menstrual Period: 09/29/22 Menstrual Status: Regular SPECIMEN SUBMITTED CERVICAL/ENDOCERVI LYDIA Specimen Received:1 Thin Prep Vial, Image Assisted Pap (SMD) Please note: The Pap smear is not a diagnostic test. It is a screening test. Negative results on combined screening (Pap test and HPV-DNA) have a high negative predictive value (99.1-100 percent) for cervical cancer. The pap test is not effective in detecting cervical adenocarcinoma. [facility] 10/18/2022 7:30 AM CDT 10/20/2022 7:30 AM CDT Comment:CERVICAL/ENDOCERVICA L Shabbir Natarajan MD PATHOLOGY/CYTOLOGY ORDERABLES Fi nal Result [facility] [address] [place] [address], from Last 3 Months or Most Recently Relevant to Health Maintenance Insurance [facility] Care Teams Audio Visual Project Manager Relationship Specialty Start Date End Date Shabbir Natarajan MD [address] [address] PCP - General INTERNAL MEDICINE 09/05/22
--- OUTSIDE RECORDS SUMMARY | 2025-05-12 16:42 | XMS_ITS | Encounter Summary ---
Author Organization [facility] Address [facility] [place] [address] Care Team Providers Care Sql Database Developer Name Role Phone Shabbir Natarajan MD Primary Care Provider [phone] Encounter Details Date Type Department Care Team (Late st Contact Info) Description 05/08/2025 [employer] Message Enc [facility] Multispecialty Care - [place] [address] [place] [address] [address] [place] [address] Shabbir Natarajan MD [address] [facility] [address] [place] [address] back pain Social History Tobacco Use Types Packs/Day Years [...] answer 04/07/2025 How often do you attend [facility] or jehovah's witness services? Patient declined 04/07/2025 Do you belong to any clubs o r organizations such as rastafarian groups, unions, fraternal or athletic groups, or [...] and heating? Patient unable to answer 04/07/2025 [facility] - Occupational Stress Questionnaire Answer Date [...] any time in the past 12 m [facility], were you homeless or living in a skilled nursing (including now)? No 04/07/2025 B1300 Health Literacy Answer Date Recor ded How often do you need to hav e someone help you when you read instructions, pamphlets, or other written material from your doctor or pharmacy? Never 04/07/2025 [facility] Utilities Answer Date Recorded In the past 12 months has th e electric, gas, oil, or water company [...] (Latest Contact Info) Description 06/13/2025 11:53 AM ICT SUPPORT TECHNICIANS Hospital Encounter [facility] [address] [place] [address] He Rogers MD [address] [place] [phone] 06/13/2025 11:53 AM ICT SUPPORT TECHNICIANS - 06/13/2025 12:25 PM ICT SUPPORT TECHNICIANS Surgery [facility] [address] [place], [place] [id number] He Rogers MD [address] [address] COLONOSCOPY SCREENING 10/06/2025 7:20 AM CDT Office Visit [facility] Medical [facility] Multispecialty Care - [place] [address] [address] [place] [address] Shabbir Natarajan MD [address] [place] [address] Scheduled Procedures Name Priority Associated Diagnoses Date/Ti me COLONOSCOPY SCREENING Screening for colon cancer 06/13/2025 11:53 AM ICT SUPPORT TECHNICIANS documented as of this encounter Visit Diagnoses Not on filedocumented in this encounter Additional Health Concerns Assessment Noted Time PHQ-9 Depression Total Score: 1 04/07/20 25 7:56 AM ICT SUPPORT TECHNICIANS documented as of this encounter Care Teams Sql Database Developer Relationship Specialty Start Date End Date Shabbir Natarajan MD [address] [place] [address] PCP - General INTERNAL MEDICINE 09/05/22 documented as of this encounter
--- OUTSIDE RECORDS SUMMARY | 2025-05-12 16:42 | XMS_ITS | Encounter Summary ---
Author Organization [facility] Address [facility] [place] [address] Care Team Providers Care Ammunition Storage Superintendent Name Role Phone Shabbir Natarajan MD Primary Care Provider [phone] Encounter Details Date Type Department Care Team (Late st Contact Info) Description 10/21/2022 MyChart Message Enc [facility] Medical Group Multispecialty Care - [place] [address] [place] [address] [address] [place] [address] Shabbir Natarajan MD [address] [facility] [address] [place] [address] Blood Test Social History Tobacco [...] AM CDT Sexual Orientation Not on file COVID-19 Exposure Response Date Recorded In the last 10 days, have yo u been in contact with someone who was confirmed or suspected to have Coronavirus/COVID-19? No / Unsure 10/21/2022 8:46 AM CDT documented as of this encounter Plan of Treatment Upcoming Encounters Date Type Department Care Team (Latest Contact Info) Description 06/13/2025 11:53 AM INSTRUCTOR WARPER Hospital Encounter [facility] [address] [place] [address] He Rogers MD [address] [address] 06/13/2025 11:53 AM INSTRUCTOR WARPER - 06/13/2025 12:25 PM INSTRUCTOR WARPER Surgery [facility] [address] [place] [address] He Rogers MD [address] [address] COLONOSCOPY SCREENING 10/06/2025 7:20 AM CDT Office Visit [facility] Medical Group Multispecialty Care - [place] [address] [address] [place] [address] Shabbir Natarajan MD [address] [place] [address] Scheduled Procedures Name Priority Associated Diagnoses Date/Ti me COLONOSCOPY SCREENING Screening for colon cancer 06/13/2025 11:53 AM INSTRUCTOR WARPER documented as of this encounter Visit Diagnoses Not on filedocumented in this encounter Care Teams Ammunition Storage Superintendent Relationship Specialty Start Date End Date Shabbir Natarajan MD [address] [place] [address] PCP - General INTERNAL MEDICINE 09/05/22 documented as of this encounter
--- OUTSIDE RECORDS SUMMARY | 2025-05-12 16:42 | XMS_ITS | Encounter Summary ---
Author Organization [facility] Address [facility] [place] [address] Care Team Providers Care Utility Person Name Role Phone Shabbir Natarajan MD Primary Care Provider [phone] Encounter Details Date Type Department Care Team (Latest Contact Info) Description 05/27/2023 [employer] Message Enc [facility] Medical Group Multispecialty Care - [place] [address] [place] [address] [address] [place] [address] Shabbir Natarajan MD 1188 [facility] [address] [place], [place] [id number] Key's Medication Social History Tobacco Use Types [...] (Latest Contact Info) Description 06/13/2025 11:53 AM [facility] Hospital Encounter [facility] [address] [place], [place] [phone] He Rogers MD 3 [facility] [address] [place] [address] 06/13/2025 11:53 AM SOCCER COACH - 06/13/2025 12:25 PM SOCCER COACH Surgery [facility] Surgery [address] [place] [address] He Rogers MD 3 [facility] [address] [place] [address] COLONOSCOPY SCREENING 10/06/2025 7:20 AM CDT Office Visit [facility] Medical Group Multispecialty Care - [place] [address] [address] [place] [address] Shabbir Natarajan MD [address] [address] Scheduled Procedures Name Priority Associated Diagnoses Date/Ti me COLONOSCOPY SCREENING Screening for colon cancer 06/13/2025 11:53 AM SOCCER COACH documented as of this encounter Visit Diagnoses Not on filedocumented in this encounter Care Teams Utility Person Relationship Specialty Start Date End Date Shabbir Natarajan MD [address] [place] [address] [address] [place] [address] PCP - General INTERNAL MEDICINE 09/05/22 documented as of this encounter
--- OUTSIDE RECORDS SUMMARY | 2025-05-12 16:42 | XMS_ITS | Encounter Summary ---
Author Organization [facility] Address [facility] [place] [address] Care Team Providers Care Carpenter Wooden Tank Erecting Name Role Phone Shabbir Natarajan MD Primary Care Provider [phone] Encounter Details Date Type Department Care Team (Late st Contact Info) Description 10/25/2022 [employer] Message Enc [facility] Medical Group Multispecialty Care - [place] [address] [place] [address] [address] [place] [address] Shabbir Natarajan MD 1188 [facility] [address] [place] [address] Henrry Dorman Social History Tobacco [...] (Latest Contact Info) Description 06/13/2025 11:53 AM JOB PRINTER APPRENTICE Hospital Encounter [facility] [address] [place] [address] He Rogers MD [address] [address] 06/13/2025 11:53 AM JOB PRINTER APPRENTICE - 06/13/2025 12:25 PM JOB PRINTER APPRENTICE Surgery [facility] [address] [place] [address] He Rogers MD [address] [address] COLONOSCOPY SCREENING 10/06/2025 7:20 AM CDT Office Visit [facility] Medical Group Multispecialty Care - [place] [address] [address] [place] [address] Shabbir Natarajan MD [address] [place] [address] Scheduled Procedures Name Priority Associated Diagnoses Date/Ti me COLONOSCOPY SCREENING Screening for colon cancer 06/13/2025 11:53 AM JOB PRINTER APPRENTICE documented as of this encounter Visit Diagnoses Not on filedocumented in this encounter Care Teams Carpenter Wooden Tank Erecting Relationship Specialty Start Date End Date Shabbir Natarajan MD [address] [place] [address] PCP - General INTERNAL MEDICINE 09/05/22 documented as of this encounter
--- OUTSIDE RECORDS SUMMARY | 2025-05-12 16:42 | XMS_ITS | Clinical Summary ---
Author Organization [facility] Address [address] [place] [address] Care Team Providers Care Geriatric Assistant Name Role Phone Unavailable Primary Care Provider Unavailabl e Encounters Date Type Department Care Team Description 03/26/2025 External Device Data [facility] ABSTRACTION Provider, Abstract 03/26/2025 External Device Data [facility] ABSTRACTION Provider, Abstract 03/18/2025 External Device Data [facility] ABSTRACTION Provider, Abstract from Last 3 Months Social History Tobacco Use Types Packs/Day Years Used Date Smoking Tobacco: Never Assessed Comments Unknown Sex and Gender Information Value Date Recorded Sex Assigned at Not on file Legal Sex Female 9:11 AM CDT Gender Identity Not on file Sexual Orientation Not on file Plan of Treatment Health Maintenance Due Date Last Done Comments HEPATITIS B VACCINES (1 of 3 - 19+ 3-dose series) 09/28/1998 HPV/Cotest (21-29) 09/28/2000 HPV/Cotest (30-65) 09/28/2009 BREAST CANCER SCREENING 04/06/2022 04/06/2021, 04/06 COLORECTAL SCREENING 09/28/2024 Colorectal Cancer Screening 09/28/2024 FIT-DNA Q 3 years 09/28/2024 FIT/FOBT Q 1 year 09/28/2024 Flex Sig/CT Colonography Q 5 years 09/28/2024 INFLUENZA VACCINE (#1) 2024 CERVICAL CANCER SCREENING 10/18/2025 PAP SMEAR 10/18/2025 10/18/2022 DTAP/TDAP/TD VACCINES (2 - Td or Tdap) 09/09/2031 HPV VACCINES (No Doses Required) Completed Insurance [facility] BLUE ACCESS CHOICE [facility] [employer] ACCESS CHOICE
--- OUTSIDE RECORDS SUMMARY | 2025-05-12 16:42 | XMS_ITS | Encounter Summary ---
Author Organization [facility] Address [facility] [place] [address] Care Team Providers Care Leather Production Machine Operator Name Role Phone Shabbir Natarajan MD Primary Care Provider [phone] Encounter Details Date Type Department Care Team (Late st Contact Info) Description 06/23/2023 Confert Message Enc [facility] Medical Group Multispecialty Care - [place] [address] [place] [address] [address] [place] [address] Shabbir Natarajan MD 1188 [facility] [address] [place], [place] [phone] Question Social History Tobacco Use Types Packs/Day [...] (Latest Contact Info) Description 06/13/2025 11:53 AM [facility] Hospital Encounter [facility] [address] [place], [place] [phone] He Rogers MD 3 [facility] [address] [place] [address] 06/13/2025 11:53 AM TELEGRAPHIC TYPEWRITER MECHANIC - 06/13/2025 12:25 PM TELEGRAPHIC TYPEWRITER MECHANIC Surgery [facility] [address] [place] [address] He Rogers MD 3 [facility] [address] [place] [address] COLONOSCOPY SCREENING 10/06/2025 7:20 AM CDT Office Visit [facility] Medical Group Multispecialty Care - [place] [address] [address] [place] [address] Shabbir Natarajan MD [facility]8 [facility] [address] [place] [address] Scheduled Procedures Name Priority Associated Diagnoses Date/Ti me COLONOSCOPY SCREENING Screening for colon cancer 06/13/2025 11:53 AM TELEGRAPHIC TYPEWRITER MECHANIC documented as of this encounter Visit Diagnoses Not on filedocumented in this encounter Care Teams Leather Production Machine Operator Relationship Specialty Start Date End Date Shabbir Natarajan MD [address] [place] [address] [address] [place] [address] PCP - General INTERNAL MEDICINE 09/05/22 documented as of this encounter
--- OUTSIDE RECORDS SUMMARY | 2025-05-12 16:42 | XMS_ITS | Encounter Summary ---
Author Organization [facility] Address [facility] [place] [address] Care Team Providers Care Emergency Telecommunications Dispatcher Name Role Phone Shabbir Natarajan MD Primary Care Provider [phone] Encounter Details Date Type Department Care Team (Latest Contact Info) Description 04/21/2025 Results Follow-Up [facility] Medical Group Multispecialty Care - [place] [address] [place] [address] 157 [address] [place] [address] Shabbir Natarajan MD 1188 [facility] 157 [place] [address] CT HEART SCREEN CALCIUM SCORE PROMO Social History Tobacco Use Types Packs/Day Years [...] answer 04/07/2025 How often do you attend chur or nondenominational services? Patient declined 04/07/2025 Do you belong to any clubs o r organizations such as pentecostalism groups, unions, fraternal or athletic groups, or [...] and heating? Patient unable to answer 04/07/2025 [facility] - Occupational Stress Questionnaire Answer Date [...] any time in the past 12 m [facility], were you homeless or living in a correction (including now)? No 04/07/2025 [id number] Health Literacy Answer Date Recor ded How often do you need to hav e someone help you when you read instructions, pamphlets, or other written material from your doctor or pharmacy? Never 04/07/2025 [facility] Utilities Answer Date Recorded In the past [...] (Latest Contact Info) Description 06/13/2025 11:53 AM PLANNING ASSOCIATE Hospital Encounter [facility] [address] [place] [address] He Rogers MD [address] [address] 06/13/2025 11:53 AM PLANNING ASSOCIATE - 06/13/2025 12:25 PM PLANNING ASSOCIATE Surgery [facility] [address] [place] [address] He Rogers MD [address] [address] COLONOSCOPY SCREENING 10/06/2025 7:20 AM CDT Office Visit [facility] Medical Group Multispecialty Care - [place] [address] [address] [place] [address] Shabbir Natarajan MD [address] [place] [address] Scheduled Procedures Name Priority Associated Diagnoses Date/Ti me COLONOSCOPY SCREENING Screening for colon cancer 06/13/2025 11:53 AM PLANNING ASSOCIATE documented as of this encounter Visit Diagnoses Not on filedocumented in this encounter Additional Health Concerns Assessment Noted Time PHQ-9 Depression Total Score: 1 04/07/20 25 7:56 AM PLANNING ASSOCIATE documented as of this encounter Care Teams Emergency Telecommunications Dispatcher Relationship Specialty Start Date End Date Shabbir Natarajan MD [address] [place] [address] PCP - General INTERNAL MEDICINE 09/05/22 documented as of this encounter
--- OUTSIDE RECORDS SUMMARY | 2025-05-12 16:43 | XMS_ITS | Encounter Summary ---
Author Organization [facility] Address [facility] [place] [address] Care Team Providers Care Mail Carrier Name Role Phone Shabbir Natarajan MD Primary Care Provider [phone] Encounter Details Date Type Department Care Team (Latest Contact Info) Description 11/22/2022 Better ATM Servicest Message Enc [facility] Medical Group Multispecialty Care - [place] [address] [place] [address] 157 [address] [place], [place] [address] Shabbir Natarajan MD 1188 [facility] 157 [place], [place] [id number] Medication (Spironolactone) Social History Tobacco Use Types [...] Contact Info) Description 06/13/2025 11:53 AM [facility] Hospital Encounter [facility] [address] [place] [address] He Rogers MD 3 [facility] [address] [place] [address] 06/13/2025 11:53 AM PLATING TANK OPERATOR APPRENTICE - 06/13/2025 12:25 PM PLATING TANK OPERATOR APPRENTICE Surgery [facility] [address] [place] [address] He Rogers MD 3 [facility] [place] [address] COLONOSCOPY SCREENING 10/06/2025 7:20 AM CDT Office Visit [facility] Medical Group Multispecialty Care [place] [address] [address] [place] [address] Shabbir Natarajan MD [facility] [address] [address] Scheduled Procedures Name Priority Associated Diagnoses Date/Ti me COLONOSCOPY SCREENING Screening for colon cancer 06/13/2025 11:53 AM PLATING TANK OPERATOR APPRENTICE documented as of this encounter Visit Diagnoses Not on filedocumented in this encounter Care Teams Mail Carrier Relationship Specialty Start Date End Date Shabbir Natarajan MD [address] [place] [address] PCP - General INTERNAL MEDICINE 09/05/22 documented as of this encounter
--- OUTSIDE RECORDS SUMMARY | 2025-05-12 16:43 | XMS_ITS | Encounter Summary ---
Author Organization [facility] Address [facility] [place] [address] Care Team Providers Care Diver Pumper Name Role Phone Shabbir Natarajan MD Primary Care Provider [phone] Encounter Details Date Type Department Care Team (Late st Contact Info) Description 10/28/2022 TrumpIThart Message Enc [facility] Medical Group Multispecialty Care - [place] [address] [place] [address] 157 [address] [place] [address] Shabbir Natarajan MD 1188 [facility] 157 [place] [address] Blood test Social History Tobacco [...] (Latest Contact Info) Description 06/13/2025 11:53 AM AIX ADMINISTRATOR Hospital Encounter [facility] [address] [place] [address] He Rogers MD [address] [address] 06/13/2025 11:53 AM AIX ADMINISTRATOR - 06/13/2025 12:25 PM AIX ADMINISTRATOR Surgery [facility] [address] [place] [address] He Rogers MD [address] [address] COLONOSCOPY SCREENING 10/06/2025 7:20 AM CDT Office Visit [facility] Medical Group Multispecialty Care [place] [address] [address] [place] [address] Shabbir Natarajan MD [address] [place] [address] Scheduled Procedures Name Priority Associated Diagnoses Date/Ti me COLONOSCOPY SCREENING Screening for colon cancer 06/13/2025 11:53 AM AIX ADMINISTRATOR documented as of this encounter Visit Diagnoses Not on filedocumented in this encounter Care Teams Diver Pumper Relationship Specialty Start Date End Date Shabbir Natarajan MD [address] [place] [address] PCP - General INTERNAL MEDICINE 09/05/22 documented as of this encounter
--- OUTSIDE RECORDS SUMMARY | 2025-05-12 16:43 | XMS_ITS | Encounter Summary ---
Author Organization [facility] Address [facility] [place] [address] Care Team Providers Care Sample Distributor Name Role Phone Shabbir Natarajan MD Primary Care Provider [phone] Encounter Details Date Type Department Care Team (Late st Contact Info) Description 03/01/2024 lifecaket Message Enc [facility] Medical Group Multispecialty Care - [place] [address] [place] [address] [address] [place], [place] [address] Shabbir Natarajan MD 1188 [facility] 157 [place], [place] [phone] Doubt Social History Tobacco Use Types Packs/Day [...] (Latest Contact Info) Description 06/13/2025 11:53 AM [facility] Hospital Encounter [facility] [address] [place], [place] [address] He Rogers MD 3 [facility] [address] [place] [address] 06/13/2025 11:53 AM TIMBER SKIDDER - 06/13/2025 12:25 PM TIMBER SKIDDER Surgery [facility] [address] [place] [address] He Rogers MD 3 [facility] [address] [place] [address] COLONOSCOPY SCREENING 10/06/2025 7:20 AM CDT Office Visit [facility] Medical Group Multispecialty Care [place] [address] [address] [place] [address] Shabbir Natarajan MD [facility] 157 [place] [address] Scheduled Procedures Name Priority Associated Diagnoses Date/Ti me COLONOSCOPY SCREENING Screening for colon cancer 06/13/2025 11:53 AM TIMBER SKIDDER documented as of this encounter Visit Diagnoses Not on filedocumented in this encounter Care Teams Sample Distributor Relationship Specialty Start Date End Date Shabbir Natarajan MD [address] [place] [address] 157 [place] [address] PCP - General INTERNAL MEDICINE 09/05/22 documented as of this encounter
--- OUTSIDE RECORDS SUMMARY | 2025-05-12 16:43 | XMS_ITS | Encounter Summary ---
Author Organization [facility] Address [facility] [place] [address] Care Team Providers Care Cargo Broker Name Role Phone Sahbbir Natarajan MD Primary Care Provider [phone] Encounter Details Date Type Department Care Team (Late st Contact Info) Description 10/08/2024 [facility] [employer] Message Enc [facility] Medical Group Multispecialty Care - [place] [address] [address] [place] [address] Shabbir Natarajan MD 1188 [facility] 157 [place], [place] [address] Polecat Social History Tobacco Use Types Packs/Day Years [...] (Latest Contact Info) Description 06/13/2025 11:53 AM [facility] Hospital Encounter [facility] [address] [place], [place] [address] He Rogers MD 3 [facility] [address] [place] [address] 06/13/2025 11:53 AM OVER THE HORIZON TARGETING SUPERVISOR - 06/13/2025 12:25 PM OVER THE HORIZON TARGETING SUPERVISOR Surgery [facility] [address] [place] [address] He Rogers MD 3 [facility] [place] [address] COLONOSCOPY SCREENING 10/06/2025 7:20 AM CDT Office Visit [facility] Medical Group Multispecialty Care [place] [address] [address] [place] [address] Shabbir Natarajan MD [facility] 157 [place] [address] Scheduled Procedures Name Priority Associated Diagnoses Date/Ti me COLONOSCOPY SCREENING Screening for colon cancer 06/13/2025 11:53 AM OVER THE HORIZON TARGETING SUPERVISOR documented as of this encounter Visit Diagnoses Not on filedocumented in this encounter Care Teams Cargo Broker Relationship Specialty Start Date End Date Shabbir Natarajan MD [address] [place] [address] 157 [place] [address] PCP - General INTERNAL MEDICINE 09/05/22 documented as of this encounter
--- OUTSIDE RECORDS SUMMARY | 2025-05-12 16:43 | XMS_ITS | Encounter Summary ---
Author Organization [facility] Address [facility] [place] [address] Care Team Providers Care Platform Loader Name Role Phone Shabbir Ntaarajan MD Primary Care Provider [phone] Encounter Details Date Type Department Care Team (Late st Contact Info) Description 10/13/2023 BioMedFlext Message Enc [facility] Medical Group Multispecialty Care - [place] [address] [place] [address] 157 [address] [place] [address] Shabbir Natarajan MD 1188 [facility] 157 [place] [address] Spider Bite? Social History Tobacco [...] 11:53 AM [facility] Hospital Encounter [facility] [address] [place], [place] [address] He Rogers MD 3 [facility] [address] [place] [address] 06/13/2025 11:53 AM LOOK OUT TOWER FIRE WATCHER - 06/13/2025 12:25 PM LOOK OUT TOWER FIRE WATCHER Surgery [facility] Surgery [address] [place] [address] He Rogers MD [address] [facility] [place] [address] COLONOSCOPY SCREENING 10/06/2025 7:20 AM CDT Office Visit [facility] Medical Group Multispecialty Care [place] [address] [address] [place] [address] Shabbir Natarajan MD [facility]8 [facility] 157 [place] [address] Scheduled Procedures Name Priority Associated Diagnoses Date/Ti me COLONOSCOPY SCREENING Screening for colon cancer 06/13/2025 11:53 AM LOOK OUT TOWER FIRE WATCHER documented as of this encounter Visit Diagnoses Not on filedocumented in this encounter Care Teams Platform Loader Relationship Specialty Start Date End Date Shabbir Natarajan MD [address] [place] [address] 157 [place] [address] PCP - General INTERNAL MEDICINE 09/05/22 documented as of this encounter
--- OUTSIDE RECORDS SUMMARY | 2025-05-12 16:43 | XMS_ITS | Encounter Summary ---
Author Organization [facility] Address [facility] [place] [address] Care Team Providers Care Airworthiness Safety Inspector Name Role Phone Shabbir Natarajan MD Primary Care Provider [phone] Encounter Details Date Type Department Care Team (Late st Contact Info) Description 11/09/2023 SECU4t Message Enc [facility] Medical Group Multispecialty Care - [place] [address] [place] [address] 157 [address] [place] [address] Shabbir Natarajan MD 1188 [facility] 157 [place], [place] [address] Question Social History Tobacco Use Types Packs/Day [...] (Latest Contact Info) Description 06/13/2025 11:53 AM [facility] Hospital Encounter [facility] [address] [place] [address] He Rogers MD 3 [facility] [address] [place] [address] 06/13/2025 11:53 AM RAIL DOWELING MACHINE OPERATOR - 06/13/2025 12:25 PM RAIL DOWELING MACHINE OPERATOR Surgery [facility] Surgery [address] [place] [address] He Rogers MD 3 [facility] [address] [place] [address] COLONOSCOPY SCREENING 10/06/2025 7:20 AM CDT Office Visit [facility] Medical Group Multispecialty Care - [place] [address] [address] [place] [address] Shabbir Natarajan MD [facility]8 [facility] 157 [place] [address] Scheduled Procedures Name Priority Associated Diagnoses Date/Ti me COLONOSCOPY SCREENING Screening for colon cancer 06/13/2025 11:53 AM RAIL DOWELING MACHINE OPERATOR documented as of this encounter Visit Diagnoses Not on filedocumented in this encounter Care Teams Airworthiness Safety Inspector Relationship Specialty Start Date End Date Shabbir Natarajan MD [address] [place] [address] 157 [place] [address] PCP - General INTERNAL MEDICINE 09/05/22 documented as of this encounter
--- OUTSIDE RECORDS SUMMARY | 2025-05-12 16:43 | XMS_ITS | Encounter Summary ---
Author Organization [facility] Address [facility] [place] [address] Care Team Providers Care Financial Compliance Officer Name Role Phone Shabbir Natarajan MD Primary Care Provider [phone] Encounter Details Date Type Department Care Team (Late st Contact Info) Description 01/27/2024 NeurogesXt Message Enc [facility] Medical Group Multispecialty Care - [place] [address] [place] [address] 157 [address] [place] [address] Shabbir Natarajan MD 1188 [facility] 157 [place], [place] [id number] Doubt Social History Tobacco Use Types Packs/Day [...] AM [facility] Hospital Encounter [facility] [address] [place], [place] [address] He Rogers MD 3 [facility] [address] [place] [address] 06/13/2025 11:53 AM TELEX OPERATOR - 06/13/2025 12:25 PM TELEX OPERATOR Surgery [facility] Surgery [address] [place] [address] He Rogers MD 3 [facility] [address] [place] [address] COLONOSCOPY SCREENING 10/06/2025 7:20 AM CDT Office Visit [facility] Medical Group Multispecialty Care - [place] [address] [address] [place] [address] Shabbir Natarajan MD [facility] 157 [place] [address] Scheduled Procedures Name Priority Associated Diagnoses Date/Ti me COLONOSCOPY SCREENING Screening for colon cancer 06/13/2025 11:53 AM TELEX OPERATOR documented as of this encounter Visit Diagnoses Not on filedocumented in this encounter Care Teams Financial Compliance Officer Relationship Specialty Start Date End Date Shabbir Natarajan MD [address] [place] [address] 157 [place] [address] PCP - General INTERNAL MEDICINE 09/05/22 documented as of this encounter
--- OUTSIDE RECORDS SUMMARY | 2025-05-12 16:43 | XMS_ITS | Encounter Summary ---
Author Organization [facility] Address [facility]6 [place] [address] Care Team Providers Care Campus Administrator Name Role Phone Shabbir Natarajan MD Primary Care Provider [phone] Encounter Details Date Type Department Care Team (Late st Contact Info) Description 06/15/2024 TALON THERAPEUTICShart Message Enc [facility] Medical Group Multispecialty Care - [place] [address] [place] [address] 157 [address] [place] [address] Shabbir Natarajan MD 1188 [facility] 157 [place], [place] [address] Mammography Social History Tobacco Use Types Packs/Day [...] (Latest Contact Info) Description 06/13/2025 11:53 AM [facility] Hospital Encounter [facility] [address] [place], [place] [address] He Rogers MD 3 [facility] [address] [place] [address] 06/13/2025 11:53 AM CITY COUNCILMAN - 06/13/2025 12:25 PM CITY COUNCILMAN Surgery [facility] Surgery [address] [place] [address] He Rogers MD 3 [facility] [address] [place] [address] COLONOSCOPY SCREENING 10/06/2025 7:20 AM CDT Office Visit [facility] Medical Group Multispecialty Care - [place] [address] [address] [place] [address] Shabbir Natarajan MD [facility]8 [facility] 157 [place] [address] Scheduled Procedures Name Priority Associated Diagnoses Date/Ti me COLONOSCOPY SCREENING Screening for colon cancer 06/13/2025 11:53 AM CITY COUNCILMAN documented as of this encounter Visit Diagnoses Not on filedocumented in this encounter Care Teams Campus Administrator Relationship Specialty Start Date End Date Shabbir Natarajan MD [address] [place] [address] 157 [place] [address] PCP - General INTERNAL MEDICINE 09/05/22 documented as of this encounter
--- OUTSIDE RECORDS SUMMARY | 2025-05-12 16:43 | XMS_ITS | Encounter Summary ---
Author Organization [facility] Address [facility]6 [place] [address] Care Team Providers Care Physics Technical Officer Name Role Phone Shabbir Natarajan MD Primary Care Provider [phone] Encounter Details Date Type Department Care Team (Late st Contact Info) Description 01/20/2024 Extreme Reacht Message Enc [facility] Medical Group Multispecialty Care - [place] [address] [place] [address] 157 [address] [place], [place] [address] Shabbir Natarajan MD 1188 [facility] 157 [place], [place] [address] Side effects? Social History Tobacco Use Types [...] AM [facility] Hospital Encounter [facility] [address] [place] [address] He Rogers MD 3 [facility] [address] [place] [address] 06/13/2025 11:53 AM QUARRY MANAGER - 06/13/2025 12:25 PM QUARRY MANAGER Surgery [facility] Surgery [address] [place] [address] He Rogers MD 3 [facility] [address] [place] [address] COLONOSCOPY SCREENING 10/06/2025 7:20 AM CDT Office Visit [facility] Medical Group Multispecialty Care - [place] [address] [address] [place] [address] Shabbir Natarajan MD [facility]8 [facility] 157 [place] [address] Scheduled Procedures Name Priority Associated Diagnoses Date/Ti me COLONOSCOPY SCREENING Screening for colon cancer 06/13/2025 11:53 AM QUARRY MANAGER documented as of this encounter Visit Diagnoses Not on filedocumented in this encounter Care Teams Physics Technical Officer Relationship Specialty Start Date End Date Shabbir Natarajan MD [address] [place] [address] 157 [place] [address] PCP - General INTERNAL MEDICINE 09/05/22 documented as of this encounter
--- OUTSIDE RECORDS SUMMARY | 2025-05-12 16:43 | XMS_ITS | Encounter Summary ---
Author Organization [facility] Address [facility] [place] [address] Care Team Providers Care Poultry Husbandry Teacher Name Role Phone Shabbir Natarajan MD Primary Care Provider [phone] Encounter Details Date Type Department Care Team (Late st Contact Info) Description 01/07/2024 Nautilus Biotecht Message Enc [facility] Medical Group Multispecialty Care - [place] [address] [address] [place], [place] [address] Shabbir Natarajan MD 1188 [facility] 157 [place], [place] [address] Refil Social History Tobacco Use Types Packs/Day [...] (Latest Contact Info) Description 06/13/2025 11:53 AM [facility] Hospital Encounter [facility] [address] [place], [place] [address] He Rogers MD 3 [facility] [address] [place] [address] 06/13/2025 11:53 AM TANK CAR CLEANER - 06/13/2025 12:25 PM TANK CAR CLEANER Surgery [facility] [address] [place] [address] He Rogers MD 3 [facility] [address] [place] [address] COLONOSCOPY SCREENING 10/06/2025 7:20 AM CDT Office Visit [facility] Medical Group Multispecialty Care - [place] [address] [address] [place] [address] Shabbir Natarajan MD [facility]8 [facility] 157 [place] [address] Scheduled Procedures Name Priority Associated Diagnoses Date/Ti me COLONOSCOPY SCREENING Screening for colon cancer 06/13/2025 11:53 AM TANK CAR CLEANER documented as of this encounter Visit Diagnoses Not on filedocumented in this encounter Care Teams Poultry Husbandry Teacher Relationship Specialty Start Date End Date Shabbir Natarajan MD [address] [place] [address] 157 [place] [address] PCP - General INTERNAL MEDICINE 09/05/22 documented as of this encounter
--- OUTSIDE RECORDS SUMMARY | 2025-05-12 16:43 | XMS_ITS | Encounter Summary ---
Author Organization [facility] Address [facility] [place] [address] Care Team Providers Care Nuclear Radiation Engineer Name Role Phone Shabbir Natarajan MD Primary Care Provider [phone] Encounter Details Date Type Department Care Team (Latest Contact Info) Description 02/21/2024 DivvyDownt Message Enc [facility] Medical Group Multispecialty Care - [place] [address] [place] [address] 157 [address] [place], [place] [address] Shabbir Natarajan MD 1188 [facility] 157 [place], [place] [address] Dentist appointment Social History Tobacco Use Types [...] (Latest Contact Info) Description 06/13/2025 11:53 AM [facility] Hospital Encounter [facility] [address] [place], [place] [address] He Rogers MD 3 [facility] [address] [place] [address] 06/13/2025 11:53 AM GRASS CUTTER - 06/13/2025 12:25 PM GRASS CUTTER Surgery [facility] Surgery [address] [place] [address] eH Rogers MD 3 [facility] [address] [place] [address] COLONOSCOPY SCREENING 10/06/2025 7:20 AM CDT Office Visit [facility] Medical Group Multispecialty Care [place] [address] [address] [place] [address] Shabbir Natarajan MD Critical access hospital8 [facility] 157 [place] [address] Scheduled Procedures Name Priority Associated Diagnoses Date/Ti me COLONOSCOPY SCREENING Screening for colon cancer 06/13/2025 11:53 AM GRASS CUTTER documented as of this encounter Visit Diagnoses Not on filedocumented in this encounter Care Teams Nuclear Radiation Engineer Relationship Specialty Start Date End Date Shabbir Natarajan MD [address] [place] [address] 157 [place] [address] PCP - General INTERNAL MEDICINE 09/05/22 documented as of this encounter
--- OUTSIDE RECORDS SUMMARY | 2025-05-12 16:43 | XMS_ITS | Encounter Summary ---
Author Organization [facility] Address [facility] [place] [address] Care Team Providers Care Phlebotomist Supervisor/Instructor Name Role Phone Shabbir Natarajan MD Primary Care Provider [phone] Encounter Details Date Type Department Care Team (Late st Contact Info) Description 10/17/2023 Kireego Solutionst Message Enc [facility] [place] [address] [place] [address] [address] [place] [address] Shabbir Natarajan MD [address] [facility] [address] [place] [address] Pictures Social History Tobacco Use Types [...] on file documented as of this encounter Functional Status * Over the past 2 weeks, how often have you been bothered by any of the following problems? Question Answer Date of Assessment Author Status Little interest or pleasure in doing things Several days 10/17/2023 8:33 AM CDT Alanna Tamayo MA Active Feeling down, depressed, or hopeless Not at all 10/17/2023 8:33 AM CDT Shania Tamayo MA Active Patient Health Questionnaire-2 Score 1 10/17/2023 8:33 AM Consuelo Brennan MA Active * If you checked off any problems on this questionnaire so far, Question Answer Date of Assessment Author Status How difficult have these problems made it for you to do your work, take care of things at home, or get along with other people? Not difficult at all 10/17/2023 8:33 AM CDAlanna Recio MA Active * Over the last 2 weeks, how often have you been bothered by any of the following problems? Question Answer Date of Assessment Author Status Feeling nervous, anxious, or on edge 1 10/17/2023 8:33 AM Alanna Brennan MA Ac tive Not being able to stop or control worrying 0 10/17/2023 8:33 AM Alanna Brennan MA A ctive Worrying too much about different things 1 10/17/2023 8:33 AM Alanna Brennan MA A ctive Trouble relaxing 1 10/17/2023 8:33 AM CDT Alanna Bower MA Active Being so restless that it is hard to sit still 0 10/17/2023 8:33 AM Alanna Brennan MA Active Becoming easily annoyed or irritable 0 10/17/2023 8:33 AM Alanna Brennan MA Ac tihoracio Feeling afraid as if something awful might happen 1 10/17/2023 8:33 AM Alanna Brennan MA Ac tive JASEN-7 Total Score 4 10/17/2023 8:33 AM CDT Alanna Jo MA Active documented as of this encounter Plan of Treatment Upcoming Encounters Date Type Department Care Team (Latest Contact Info) Description 06/13/2025 11:53 AM [facility] Hospital Encounter [facility] [address] [place] [address] He Rogers MD [address] [address] 06/13/2025 11:53 AM [facility] LAB TECH - 06/13/2025 12:25 PM [facility]OL LAB TECH Surgery [facility] [address] [place] [address] He Rogers MD [address] [address] COLONOSCOPY SCREENING 10/06/2025 7:20 AM CDT Office Visit [facility] [place] [address] [address] [place] [address] Shabbir Natarajan MD [address] [address] Scheduled Procedures Name Priority Associated Diagnoses Date/Ti me COLONOSCOPY SCREENING Screening for colon cancer 06/13/2025 11:53 AM [facility] LAB TECH documented as of this encounter Visit Diagnoses Not on filedocumented in this encounter Care Teams Phlebotomist Supervisor/Instructor Relationship Specialty Start Date End Date Shabbir Natarajan MD [address] [place] [id number] PCP - General INTERNAL MEDICINE 09/05/22 documented as of this encounter
--- OUTSIDE RECORDS SUMMARY | 2025-05-12 16:43 | XMS_ITS | Encounter Summary ---
Author Organization [facility] Address [facility] [place] [address] Care Team Providers Care Oil Well Fishing Tool Operator Name Role Phone Shabbir Natarajan MD Primary Care Provider [phone] Encounter Details Date Type Department Care Team (Late st Contact Info) Description 09/17/2024 CoFluent Designt Message Enc [facility] - [place] [address] [place] [address] [address] [place] [address] Shabbir Natarajan MD 1188 [facility] [address] [place], [place] [id number] Question Social History Tobacco Use Types Packs/Day [...] (Latest Contact Info) Description 06/13/2025 11:53 AM [facility] Hospital Encounter [facility] [address] [place], [place] [id number] He Rogers MD 3 [facility] [address] [place] [address] 06/13/2025 11:53 AM MONOTYPE MACHINIST - 06/13/2025 12:25 PM MONOTYPE MACHINIST Surgery [facility] [address] [place] [address] He Rogers MD 3 [facility] [address] [place] [address] COLONOSCOPY SCREENING 10/06/2025 7:20 AM CDT Office Visit [facility] - [place] [address] [address] [place] [address] Shabbir Natarajan MD [facility]8 [facility] [address] [place] [address] Scheduled Procedures Name Priority Associated Diagnoses Date/Ti me COLONOSCOPY SCREENING Screening for colon cancer 06/13/2025 11:53 AM MONOTYPE MACHINIST documented as of this encounter Visit Diagnoses Not on filedocumented in this encounter Care Teams Oil Well Fishing Tool Operator Relationship Specialty Start Date End Date Shabbir Natarajan MD [address] [place] [address] [address] [place] [address] PCP - General INTERNAL MEDICINE 09/05/22 documented as of this encounter
== END 2025-05-12 14:41 | disposition home or self-care (01) ==
PROVIDERS: PCP Internal Medicine; Visit Provider Internal Medicine
DX: Z12.31 Encounter for screening mammogram for malignant neoplasm of breast (principal); R92.8 Other abnormal and inconclusive findings on diagnostic imaging of breast
CPT/HCPCS: 77063; 77067